=== PATIENT | female | born 2000 | race Caucasian/White ===

== ENCOUNTER 2024-05-20 14:23 | Emergency (ER) | payer MEDICAID, SELFPAY ==
--- NOTE | 2024-05-20 14:25 | ED_ITS ---
HPI - General Adult General Date Seen: 05/20/24 Chief complaint: Unspecified Complaint, Adult Stated complaint: possible toxic shock syndrome Time Seen by Provider: 05/20/24 14:24 History of Present Illness HPI narrative: 23-year-old female who normally gets care through the [facility] system and according to their records ([facility] care link) has a history of past medical history of elevated BMI, PCOS, anxiety, depression, and recurrent strep pharyngitis According to records through [facility] she was seen in the emergency department at [facility] on March for nausea, vomiting, and epigastric abdominal pain. I do not have complete records but workup included WBC of 9.6, hemoglobin 13.1, platelet count 426. Sodium 136, potassium 4.5, chloride 105, bicarb 20, BUN 10, creatinine 0.7, calcium 9, glucose 83. Urinalysis was normal. I do not have complete access to the ER notes. The patient presents to the ER today with her best friend, who drove her in, because the patient was feeling too unwell to drive her own car. Patient recalls that she was having sex with her boyfriend last weekend, on Monday when she suffered an injury to her vagina. She says this a laceration there. It happened inadvertently while they were having intercourse. It was bleeding a little bit and was painful after that but seemed to heal. She began have her period starting on Monday. It ended on Monday or Monday, 2 or 3 days ago. She began to feel unwell again yesterday on Monday. She started developing headache while she was driving her car she had a frontal headache associated with photophobia and light sensitivity from the son. Yesterday evening she also started to feel generally unwell with body aches, fatigue, low energy. She also had a sore throat last night and had an episode where she felt very short of breath. Her breathing got better after she took an albuterol inhaler. Today she is also having some vaginal discharge and some lower abdominal pain and low back pain. She also had 1 episode of watery diarrhea this morning. She is nauseous but not vomiting. She does not have a fever. No rash. She googled her symptoms and is concerned that she might have toxic shock syndrome. Related Data Home Medications ?Medication ?Instructions ?Recorded ?Confirmed albuterol sulfate 90 mcg/actuation 1 - 2 puff inhalation Q4H PRN 05/20/24 05/20/24 aerosol inhaler (Ventolin HFA) wheezing escitalopram oxalate 20 mg tablet 20 mg PO QAM 05/20/24 05/20/24 metformin 500 mg tablet,extended 2,000 mg PO QPM 05/20/24 05/20/24 release 24 hr Allergies Allergy/AdvReac Type Severity Reaction Status Date / Time No Known Drug Allergies Allergy Verified 05/20/24 14:29 PFSH PFSH Social History Smoking Status: Former smoker How often do you have a drink containing alcohol: never AUDIT-C Alcohol total score: 0 Non-prescribed substance use: former substance user and marijuana (any form) Exam Const: Vital Signs, click to edit/add: Vital Signs - 24 hr 05/20/24 14:30 05/20/24 16:12 Temperature 98.4 F Pulse Rate [Pulse Oximeter] 86 Respiratory Rate 18 Respiratory Rate [ Abdomen] 18 Blood Pressure [Ri ght Upper Arm] 108/75 Pulse Oximetry 97 Oxygen Delivery Me thod Room Air Course Vital Signs Vital signs: Initial Vital Signs Temperature 98.4 F 05/20/24 14:30 Temperature Source Temporal Artery Scan 05/20/24 14:30 Pulse Rate 86 05/20/24 14:30 Pulse Rhythm Regular 05/20/24 14:30 Respiratory Rate 18 05/20/24 14:30 Blood Pressure 108/75 05/20/24 14:30 Blood Pressure Mean 86 05/20/24 14:30 Blood Pressure Position Sitting 05/20/24 14:30 Pulse Oximetry 97 05/20/24 14:30 Oxygen Delivery Method Room Air 05/20/24 14:30 Vital Signs Temperature 98.4 F 05/20/24 14:30 Pulse Rate 86 05/20/24 14:30 Respiratory Rate 18 05/20/24 14:30 Blood Pressure 108/75 05/20/24 14:30 Pulse Oximetry 97 05/20/24 14:30 Oxygen Delivery Method Room Air 05/20/24 14:30 Temperature 98.4 F 05/20/24 14:30 Pulse Rate 86 05/20/24 14:30 Respiratory Rate 18 05/20/24 16:12 Blood Pressure 108/75 05/20/24 14:30 Pulse Oximetry 97 05/20/24 14:30 Oxygen Delivery Method Room Air 05/20/24 14:30 Medications Administered Medications: Discontinued Medications Generic Name Dose Route Start Last Admin Trade Name Santana PRN Reason Stop Dose Admin Sodium Chloride 1,000 mls @ 1,000 mls/hr 05/20/24 15:15 05/20/24 17:20 0.9 % Sodium Chloride 1000 Ml IV 05/20/24 16:14 Infused .Q1H SHARATH Infusion Ketorolac Tromethamine 15 mg 05/20/24 15:15 05/20/24 16:08 Ketorolac 15 Mg/Ml Inj IVP 05/20/24 15:16 15 mg ONCE ONE Administration Olanzapine 5 mg 05/20/24 18:01 05/20/24 18:18 Olanzapine 5 Mg/Ml Inj IVP 05/20/24 18:02 5 mg ONCE ONE Administration Ondansetron HCl 4 mg 05/20/24 15:15 05/20/24 16:10 Ondansetron 2 Mg/Ml Inj IVP 05/20/24 15:16 4 mg ONCE ONE Administration Medical Decision Making [facility] Narrative Medical decision making narrative: 23-year-old female presenting to the ER today with several concerns including vaginal discharge and vaginal pain after suffering a vaginal laceration 8 days ago. Along this she is having constitutional symptoms of more malaise, myalgias, headache, as well as lower abdominal pain. Differential is broad. In terms of her headache she that did start yesterday and was associated with mild sore sugars throat and some shortness of breath last night. COVID test is negative. Lung sounds are clear today. No evidence for any focal consolidation. No wheezing to suggest bronchospasm. She is not having any fever here in the ER. No neck stiffness. Normal mental status and no focal neurologic deficits. At this point low clinical suspicion for meningitis. No sudden onset to the headache to suggest subarachnoid hemorrhage requiring CT, CTA, or LP. Headache is improving after meds given here in the ER. Her primary concern is vaginal pain and discharge. On my exam she does have an apparently healing but probably infected laceration affecting the posterior fornix of her vagina. This apparently occurred 8 days ago when she was having intercourse with her boyfriend. With the purulent drainage I am suspicious it may be infected. It is very painful and prohibits my ability to perform a speculum exam to check for cervical discharge or cervicitis. Discussed the vaginal laceration with Obstetrics. She would recommend empiric treatment with a course of antibiotics to, Augmentin. Urinalysis was obtained and does show evidence for pyuria but also squamous epithelial cells indicating probable contamination. Patient does not think she will be able to provide a clean-catch urine sample and does not want to go through a straight cath to get an accurate specimen. Therefore will treat her empirically for possible UTI as well. Cephalexin. Laboratory workup is reassuring. White count normal. She is hemodynamically stable. Plan of care will be empiric treatment with antibiotics for her vaginal laceration. She will need follow-up either with her primary care, or with the [facility] for re-evaluation within about 1 week. At that time they could also obtain cervical specimens to check for STIs. The patient is here with her best friend her boyfriend. They have overall low suspicion for STIs. Therefore would hold off on empiric treatment for PID. She is not . Lab Data Labs: Lab Results 05/20/24 05/20/24 05/20/24 Range/Units 15:40 15:52 17:05 WBC 6.18 (4.50-11.00) K/uL RBC 4.68 (4.00-5.20) m/uL Hgb 13.1 (12.0-16.0) gm/dL Hct 39.8 (33.0-51.0) % MCV 85 (80-100) fL MCH 28 (26-34) pg MCHC 33 (32-36) gm/dL RDW Coeff of Mony 14.7 (11.5-15.5) % Plt Count 310 (140-440) K/uL Neut % (Auto) 68.6 (42.0-72.0) % Lymph % (Auto) 22.3 (20-44) % [place] % (Auto) 8.6 (0.0-11.0) % Eos % (Auto) 0.2 (0.0-7.0) % Baso % (Auto) 0.3 (0.0-3.0) % Neut # (Auto) 4.24 (1.7-7.0) K/uL Lymph # (Auto) 1.38 (0.90-2.90) K/uL [place] # (Auto) 0.50 (0.00-0.90) K/UL Eos # (Auto) 0.01 (0.00-0.50) K/uL Baso # (Auto) 0.02 (0.00-0.30) K/uL Abs Immat Gran (auto) 0.00 (0.00-0.30) K/uL Imm/Tot Granulo (auto) 0.0 % Sodium 135 (135-149) mmol/L Potassium 3.8 (3.6-5.1) mmol/L Chloride 103 (96-114) mmol/L Carbon Dioxide 23 (20-32) mmol/L Anion Gap 9 (7-15) mEq/L BUN 9 (5-24) mg/dL Creatinine 0.8 (0.5-1.5) mg/dL Estimated Creat Clear 95.25 Estimated GFR 107 ml/min Glucose 85 (60-115) mg/dL Calcium 9.3 (8.4-10.6) mg/dL Total Bilirubin 0.5 (0.1-1.5) mg/dL AST 31 (12-35) U/L ALT 35 (4-35) U/L Alkaline Phosphatase 76 (40-150) U/L Total Protein 7.9 (6.0-8.3) g/dL Albumin 4.6 (3.3-5.0) g/dL Urine Color Yellow (Yellow) Urine Appearance Clear (Clear) Urine pH 5.5 (5.0-8.5) Ur Specific [place] 1.020 (1.000-1.030) Urine Protein Negative (Negative) Urine Glucose (UA) Negative (Negative) Urine Ketones 1+ A (Negative) Urine Blood Trace-intact A (Negative) Urine Nitrite Negative (Negative) Urine Bilirubin Negative (Negative) Urine Urobilinogen 2.0 A (0.2-1.0) Ur Leukocyte Esterase Trace A (Negative) Urine RBC 2-5 A (0-2) Urine WBC 5-10 A (0-5) Ur Squamous Epith Cells Moderate A (None-Few) Urine Bacteria Moderate A (None) Fine Granular Casts Moderate A (None) Urine HCG, Qual Negative (Negative) SARS-CoV-2 (PCR) Negative SARS-CoV-2 (Negative) Influenza Type A (PCR) Negative PCR FLU A (Negative) Influenza Type B (PCR) Negative PCR FLU B (Negative) RSV (PCR) Negative PCR RSV (Negative) Discharge Plan Discharge Clinical Impression: Vaginal laceration, UTI (urinary tract infection), Headache Patient Disposition: Home, Self-Care Condition: Stable Instructions: Acute Headache (DC) Additional Instructions: As we discussed, we suspect that you do have an infection of your vagina from the laceration. We are going to put you on antibiotics to treat this infection. You also have signs of urinary tract infection on your urinalysis today. I am not sure if you truly have sent infection or not because the urine sample is showing signs of contamination from your vagina. However we will put you on antibiotics to treat you for possible bladder infection. It is very important for you to have a follow-up examination of your vaginal laceration within 5-7 days. You can follow-up with your regular doctor in the [facility] or you can follow-up with the [facility]. If you want to follow-up with the [facility] referral clerk Call [phone] tomorrow to schedule a follow-up visit with the [facility]. You should also have a pelvic exam with swabs to check for STDs at the time of your follow-up visit. As we discussed, please come back to the ER right away if you have any worsening symptoms such as worsening abdominal pain, fever or chills, worsening headache,c weakness, or any other problems. Prescriptions: No Action albuterol sulfate [Ventolin HFA] 90 mcg/actuation HFA aerosol inhaler 1 - 2 puff inhalation Q4H PRN (Reason: wheezing) metformin 500 mg tablet extended release 24 hr 2,000 mg PO QPM escitalopram oxalate 20 mg tablet 20 mg PO QAM Follow Up/Referrals: Channing Brush MD [Primary Care Provider] - Stand Alone Forms: [facility] Info Instructions
[2024-05-20 14:30] VITALS: BP 108/75; PULSE 86; RESP 18; TEMP 36.9; O2SAT 97; BMI 33.3
[2024-05-20 16:04] LABS: Basophils Absolute Auto 0.02 K/uL (0.00-0.30); Basophils Percent Auto 0.3 % (0.0-3.0); Eosinophils Absolute Auto 0.01 K/uL (0.00-0.50); Eosinophils Percent Auto 0.2 % (0.0-7.0); Hematocrit 39.8 % (33.0-51.0); Hemoglobin* 13.1 gm/dL (12.0-16.0); Lymphocytes Absolute Auto 1.38 K/uL (0.90-2.90); Lymphocytes Percent Auto 22.3 % (20-44); Mean Corpuscular HGB Conc 33 gm/dL (32-36); Mean Corpuscular Hemoglobin 28 pg (26-34); Mean Corpuscular Volume 85 fL (80-100); Monocytes Percent Auto 8.6 % (0.0-11.0); Neutrophils Absolute Auto 4.24 K/uL (1.7-7.0); Neutrophils Percent Auto 68.6 % (42.0-72.0); Platelet Count* 310 K/uL (140-440); RDW Coefficient of Variation % 14.7 % (11.5-15.5); Red Blood Count 4.68 m/uL (4.00-5.20); White Blood Count* 6.18 K/uL (4.50-11.00)
[2024-05-20] MEDS: 0.9 % SODIUM CHLORIDE 1000 ml 1,000 ML IV (16:05)
[2024-05-20] MEDS: KETOROLAC 15 MG/ML inj IVP (16:08)
[2024-05-20] MEDS: ONDANSETRON 2 MG/ML inj 4 MG IVP (16:10)
[2024-05-20 16:11] LABS: Slide Review Reflex No
[2024-05-20 16:12] VITALS: RESP 18
[2024-05-20 16:17] LABS: Albumin* 4.6 g/dL (3.3-5.0); Chloride* 103 mmol/L (96-114)
[2024-05-20 16:18] LABS: Potassium* 3.8 mmol/L (3.6-5.1); Sodium* 135 mmol/L (135-149)
[2024-05-20 16:20] LABS: Anion Gap 9 mEq/L (7-15); Aspartate Amino Transferase* 31 U/L (12-35); Bilirubin Total* 0.5 mg/dL (0.1-1.5); Carbon Dioxide* 23 mmol/L (20-32); Creatinine* 0.8 mg/dL (0.5-1.5); Est. Creatinine Clearance* 95.25; Estimated Glomerular Filt Rate 107 ml/min; Total Protein* 7.9 g/dL (6.0-8.3)
[2024-05-20 16:21] LABS: Alanine Aminotransferase* 35 U/L (4-35); Alkaline Phosphatase* 76 U/L (40-150); Blood Urea Nitrogen* 9 mg/dL (5-24); Calcium* 9.3 mg/dL (8.4-10.6); Glucose* 85 mg/dL (60-115)
[2024-05-20 16:27] LABS: PCR FLU A Negative PCR FLU A (Negative); PCR FLU B Negative PCR FLU B (Negative); PCR RSV Negative PCR RSV (Negative); SARS PCR* Negative SARS-CoV-2 (Negative)
[2024-05-20 17:17] LABS: Appearance Urine Clear (Clear); Bilirubin Urine Negative (Negative); Blood Urine Trace-intact (Negative); Color Urine Yellow (Yellow); Glucose Urine Negative (Negative); Ketones Urine 1+ (Negative); Leukocyte Esterase Urine Trace (Negative); Nitrite Urine Negative (Negative); Protein Urine Negative (Negative); pH Urine 5.5 (5.0-8.5)
[2024-05-20 17:19] LABS: Ur HCG Qualitative* Negative (Negative)
[2024-05-20 17:28] LABS: Bacteria Urine Moderate; Squamous Epithelial Cell Urine Moderate (None-Few)
[2024-05-20 17:29] LABS: Fine Granular Casts Urine Moderate
[2024-05-20] MEDS: OLANZapine 5 MG/ML inj IVP (18:18)
== END 2024-05-20 18:28 | disposition home or self-care (01) ==
PROVIDERS: Emergency Provider Emergency Medicine; PCP Family Medicine
DX: S31.41XA Laceration without foreign body of vagina and vulva, initial encounter (principal); N39.0 Urinary tract infection, site not specified; R51.9 Headache, unspecified
CPT/HCPCS: 36415; 80053; 81001; 81025; 81513; 85025; 87086; 87481; 87491; 87591; 87631; 87661; 96361; 96374; 96375; 99284; J1885; J2405; J7030

== ENCOUNTER 2024-05-22 06:13 | Outpatient (CLI) | payer MEDICAID, SELFPAY | END 2024-05-22 06:14 | disposition home or self-care (01) | LOC: AMB 05-23 02:53 | PROVIDERS: PCP Family Medicine; Visit Provider Family Medicine | DX: R10.9 Unspecified abdominal pain (principal) | CPT/HCPCS: A0425; A0427 ==

== ENCOUNTER 2024-05-22 06:40 | Emergency (ER) | payer MEDICAID, SELFPAY ==
[2024-05-22 06:51] VITALS: BP 116/66; PULSE 75; RESP 16; TEMP 37.1; O2SAT 97; BMI 32.6
[2024-05-22 07:04] LABS: Lactate* 1.6 mmol/L (0.5-1.9)
[2024-05-22 07:08] LABS: Basophils Absolute Auto 0.01 K/uL (0.00-0.30); Basophils Percent Auto 0.1 % (0.0-3.0); Eosinophils Absolute Auto 0.08 K/uL (0.00-0.50); Eosinophils Percent Auto 0.9 % (0.0-7.0); Hematocrit 40.1 % (33.0-51.0); Hemoglobin* 13.1 gm/dL (12.0-16.0); Immature Granulocytes Abs Auto 0.02 K/uL (0.00-0.30); Immature Granulocytes Pct Auto 0.2 %; Lymphocytes Percent Auto 17.8 % (20-44); Mean Corpuscular HGB Conc 33 gm/dL (32-36); Mean Corpuscular Hemoglobin 28 pg (26-34); Mean Corpuscular Volume 86 fL (80-100); Monocytes Percent Auto 5.6 % (0.0-11.0); Neutrophils Percent Auto 75.4 % (42.0-72.0); Platelet Count* 245 K/uL (140-440); RDW Coefficient of Variation % 14.7 % (11.5-15.5); Red Blood Count 4.69 m/uL (4.00-5.20); White Blood Count* 9.04 K/uL (4.50-11.00)
--- NOTE | 2024-05-22 07:11 | CRLHL7_ITS ---
For Patients: As a result of the Century Cures Act, medical imaging exams and procedure reports are released immediately into your electronic medical record. You may view this report before your referring provider. If you have questions, please contact your health care provider. INDICATION: Right lower quadrant abdominal pain. UTI. Vomiting. Weakness. COMPARISON: None TECHNIQUE: CT examination of the abdomen and pelvis was performed following the uneventful intravenous administration of 93 cc of Isovue 370. Thin section axial images were obtained from the lung bases through the pubic symphysis. Oral contrast was not administered. Please note that all CT scans at this facility use dose modulation, iterative reconstruction, and/or weight-based dosing when appropriate to reduce radiation dose to as low as reasonably achievable. FINDINGS: LUNG BASES: The lung bases as visualized appear normal.The heart size is normal at the lung bases. LIVER/BILIARY SYSTEM:The liver is normal in size and configuration. There is no focal mass and there is no intra- or extra hepatic biliary ductal dilatation.Probable steatosis. The gallbladder appears normal ADRENALS: Normal KIDNEYS, URETERS and BLADDER:The kidneys appear normal. No visible mass, calculus or hydronephrosis. The ureters and bladder as visualized appear normal. SPLEEN:Normal appearance. PANCREAS: Appears normal. RETROPERITONEUM and MESENTERY: No mass or adenopathy. A few prominent lymph nodes are noted, likely reactive GASTROINTESTINAL SYSTEM: There is no evidence of diverticulitis, colitis, mechanical obstruction, or appendicitis. The small bowel as visualized appears normal.The appendix appears normal. PELVIS: The uterus appears normal. There are symmetrically enlarged ovaries. The right ovary measures 4.8 x 3.4 centimeters and the left ovary measures 4.8 x 3.3 centimeters. Each ovary contains numerous follicles. This pattern can be seen in PCOS which should only be considered in the appropriate clinical setting. OSSEOUS STRUCTURES and ABDOMINAL WALL: There is an age-appropriate appearance of the osseous structures.No significant abdominal wall defect. OTHER: No free fluid or free air. IMPRESSION: 1. No specific visible cause for pain, UTI, vomiting and weakness. 2. Symmetrically enlarged ovaries with multiple follicles as described. This pattern can be seen in PCOS which should only be considered in the appropriate clinical setting. Please note that all CT scans at this facility use dose modulation, iterative reconstruction, and/or weight-based dosing when appropriate to reduce radiation dose to as low as reasonably achievable. Dictated by Lei Chisholm MD @ 05/22/2024 7:54:32 AM (Electronically Signed)
--- NOTE | 2024-05-22 07:13 | ED.GENADULT ---
HPI - General Adult General Chief complaint: Abdominal Pain Stated complaint: Abdominal pain Time Seen by Provider: 05/22/24 06:58 Source: patient Mode of arrival: ambulatory Limitations: no limitations History of Present Illness HPI narrative: 23-year-old female presents to the emergency department for evaluation of right-sided pelvic area abdominal pain. Patient was seen in the ED 1.5 days ago. At that time, she had a week old vaginal laceration that was caused by routine intercourse per her report. She was to tender to perform a full speculum exam and collect cultures. Case was discussed with OB and she was empirically started on Augmentin. Plan was for outpatient follow-up. Patient states that she started the antibiotics but still has a headache, is feeling generally unwell and also is now having chills since her ED visit. Abdominal pain seems to be worsening. She says that it seems like the vaginal laceration actually may be starting to heal up a little bit. She reports loss of vaginal discharge to the point where she has to wear a maxi pad. No bleeding. No leeroy dysuria. No bloody stools. She had vomiting this morning. No prior history of kidney stones, no prior history of pelvic surgeries. Low risk for STDs. Afebrile in triage, has not measured temperature at home. Has tried Tylenol for the headache and pain but reports no improvement. Has not tried NSAIDs. 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 No prior abdominal surgeries. No history of obstructions. No new injury or trauma since her ED visit a day and a half ago. Past medical history notable for anxiety disorder and PCOS. Home meds are metformin for PCOS, Lexapro 20 mg once daily. She also is a smoker but denies any illicit drug use. ROS is notable for the generalized, gynecological an abdominal symptoms as above. Otherwise denies times 12 systems Related Data Home Medications ?Medication ?Instructions ?Recorded ?Confirmed albuterol sulfate 90 mcg/actuation 1 - 2 puff inhalation Q4H PRN 05/20/24 05/20/24 aerosol inhaler (Ventolin HFA) wheezing escitalopram oxalate 20 mg tablet 20 mg PO QAM 05/20/24 05/20/24 metformin 500 mg tablet,extended 2,000 mg PO QPM 05/20/24 05/20/24 release 24 hr Previous Rx's ?Medication ?Instructions ?Recorded doxycycline hyclate 100 mg capsule 100 mg PO BID #28 caps 05/22/24 ibuprofen 600 mg tablet 600 mg PO Q6H PRN #60 tabs 05/22/24 metronidazole 500 mg tablet 500 mg PO Q12H 14 days #28 tabs 05/22/24 ondansetron 4 mg disintegrating 4 mg PO Q8H PRN nausea and 05/22/24 tablet vomiting #14 tabs Allergies Allergy/AdvReac Type Severity Reaction Status Date / Time No Known Drug Allergies Allergy Verified 05/20/24 14:29 PFSH PFS Social History Smoking Status: Former smoker How often do you have a drink containing alcohol: never AUDIT-C Alcohol total score: 0 Non-prescribed substance use: former substance user and marijuana (any form) Exam Const: Vital Signs, click to edit/add: Vital Signs - 24 hr 05/22/24 06:51 Temperature 98.7 F Pulse Rate [Pulse Oximeter] 75 Respiratory Rate 16 Blood Pressure [Ri ght Upper Arm] 116/66 Pulse Oximetry 97 Oxygen Delivery Me thod Room Air Documenting provider has reviewed patient's vital signs: yes Common normals: no apparent distress General appearance: cooperative Other: Good historian. HENMT: Common normals: normocephalic and oropharynx normal Head and scalp: normocephalic Face and sinus: normal facial exam Mouth: oral and palatal mucosa normal Eye: Common normals: conjunctivae normal General eye: normal appearance of both eyes Conjunctiva: conjunctiva(e) normal Neck & C-Spine: Common normals: no lymphadenopathy General: normal visual inspection Resp: Common normals: normal respiratory effort, no use of accessory muscles and clear to auscultation bilaterally Effort & inspection: able to speak in complete sentences Auscultation: clear to auscultation bilaterally Cardio: Common normals: regular rate, regular rhythm, S1 normal heart sound, S2 normal heart sound and no murmurs Rate: regular rate Rhythm: regular rhythm Heart sounds: S1 normal and S2 normal GI: Common normals: Normal to inspection, nondistended, normoactive bowel sounds present Other: Tender to suprapubic and right lower quadrant area but fairly deep in the pelvis. No obvious mass. No guarding or rebound tenderness. : Common normals: no CVA tenderness Bladder/kidney exam: no CVA tenderness Back & Pelvis: Common normals: no CVA tenderness and thoracic and lumbar spine normal to inspection Extremity: Common normals: normal to inspection, normal capillary refill and no pedal edema Neuro: Speech: speech normal Motor exam: no movement abnormalities noted Psych: Appearance: grossly normal Attitude: engaged Insight: insight good Judgement: judgment good Skin: Common normals: no rashes or lesions noted General skin exam: no rashes or lesions noted Course Course ED Course: 23-year-old female with worsening headache, vomiting and chills in the setting of suspected pelvic laceration and possible infection. I will give Zofran and Toradol and let this kick in but she does need a repeat gentle pelvic exam and at least vaginal cultures and STI screening. Will obtain urinalysis. Negative test a day and a half ago but will repeat. He needs a CT of the abdomen and pelvis. Other differential diagnosis including complicated UTI, kidney infection, obstruction, diverticulitis, unusual presentation of ovarian torsion. Most suspicious for pelvic inflammatory disease or abscess as well as complicated UTI, amongst others. Await clinical response to medications, pelvic exam and imaging and lab findings for next steps in management. Will likely hand over care to incoming day shift partner. Reevaluation(s) Time of Reevaluation #1: 08:00 Reevaluation #1: Update: I was able to perform a gentle pelvic exam. I do see some slight abrasions at the introitus but also can palpate at the posterior fornix of the vagina about a 2cm long deeper abrasion that does not seem to extend into the deeper tissues but is of course markedly tender to touch. There is bloody serous non malodorous drainage noted. She was of course tender to single finger bimanual exam of all pelvic organs. Time of Reevaluation #2: 08:37 Reevaluation #2: Discussed case with Ob provider on-call. We are both concerned for possible PID. CT and labs were overall reassuring. No signs of sepsis on labs. Discussed with patient as well. Will treat with Rocephin 1 g IV x1 and then doxycycline plus metronidazole. Will treat those b.i.d. for 14 days, 1st dose given here in the ED. remainder sent to pharmacy. She will discontinue the Augmentin. Also sending prescription for Zofran t.i.d. p.r.n. and ibuprofen q.i.d. p.r.n.. Use discussed. Is feeling somewhat better after fluids, Toradol and Zofran here in the ED. Ob will call for prompt follow-up in the next 1-2 days in the clinic. Patient instructed to return to the ED if she is not able to hold down her antibiotics or is having any signs of worsening in the interim. OB would recommend admission if this is the case. Written instructions provided, alarm symptoms reviewed. Patient verbalizes understanding and agreement. Vital Signs Vital signs: Initial Vital Signs Temperature 98.7 F 05/22/24 06:51 Temperature Source Temporal Artery Scan 05/22/24 06:51 Pulse Rate 75 05/22/24 06:51 Respiratory Rate 16 05/22/24 06:51 Blood Pressure 116/66 05/22/24 06:51 Blood Pressure Mean 82 05/22/24 06:51 Blood Pressure Position Supine 05/22/24 06:51 Pulse Oximetry 97 05/22/24 06:51 Oxygen Delivery Method Room Air 05/22/24 06:51 Vital Signs Temperature 98.7 F 05/22/24 06:51 Pulse Rate 75 05/22/24 06:51 Respiratory Rate 16 05/22/24 06:51 Blood Pressure 116/66 05/22/24 06:51 Pulse Oximetry 97 05/22/24 06:51 Oxygen Delivery Method Room Air 05/22/24 06:51 Temperature 98.7 F 05/22/24 06:51 Pulse Rate 75 05/22/24 06:51 Respiratory Rate 16 05/22/24 06:51 Blood Pressure 116/66 05/22/24 06:51 Pulse Oximetry 97 05/22/24 06:51 Oxygen Delivery Method Room Air 05/22/24 06:51 Medications Administered Medications: Generic Name Dose Route Start Last Admin Trade Name Freq PRN Reason Stop Dose Admin Ceftriaxone Sodium 1 gm/ 100 mls @ 200 mls/hr 05/22/24 08:17 05/22/24 08:34 Sodium Chloride IVPB 05/22/24 08:18 200 mls/hr ONCE ONE Administration Discontinued Medications Generic Name Dose Route Start Last Admin Trade Name Freq PRN Reason Stop Dose Admin Sodium Chloride 1,000 mls @ 1,000 mls/hr 05/22/24 07:13 05/22/24 08:28 0.9 % Sodium Chloride 1000 Ml IV 05/22/24 08:12 1,000 mls/hr .Q1H SHARATH Administration Ketorolac Tromethamine 15 mg 05/22/24 07:26 05/22/24 07:36 Ketorolac 15 Mg/Ml Inj IVP 05/22/24 07:27 15 mg ONCE ONE Administration Ondansetron HCl 4 mg 05/22/24 07:26 05/22/24 07:36 Ondansetron 2 Mg/Ml Inj IVP 05/22/24 07:27 4 mg ONCE ONE Administration Medical Decision Making Lab Data Lab results reviewed: Yes I reviewed the patient's lab results Lab results narrative: CBC is not flowing in but no significant leukocytosis seen on chart review. Electrolytes appropriate. CRP is mildly elevated, not unexpected. Overall quite reassuring. CT is also reviewed. Labs: Lab Results 05/22/24 Range/Units 06:52 WBC 9.04 (4.50-11.00) K/uL RBC 4.69 (4.00-5.20) m/uL Hgb 13.1 (12.0-16.0) gm/dL Hct 40.1 (33.0-51.0) % MCV 86 (80-100) fL MCH 28 (26-34) pg MCHC 33 (32-36) gm/dL RDW Coeff of Mony 14.7 (11.5-15.5) % Plt Count 245 (140-440) K/uL Neut % (Auto) 75.4 H (42.0-72.0) % Lymph % (Auto) 17.8 L (20-44) % Hamilton % (Auto) 5.6 (0.0-11.0) % Eos % (Auto) 0.9 (0.0-7.0) % Baso % (Auto) 0.1 (0.0-3.0) % Neut # (Auto) 6.80 (1.7-7.0) K/uL Lymph # (Auto) 1.60 (0.90-2.90) K/uL Hamilton # (Auto) 0.50 (0.00-0.90) K/UL Eos # (Auto) 0.08 (0.00-0.50) K/uL Baso # (Auto) 0.01 (0.00-0.30) K/uL Abs Immat Gran (auto) 0.02 (0.00-0.30) K/uL Imm/Tot Granulo (auto) 0.2 % Diff Slide Review Acceptable Review (Acceptable) Sodium 139 (135-149) mmol/L Potassium 3.8 (3.6-5.1) mmol/L Chloride 106 (96-114) mmol/L Carbon Dioxide 23 (20-32) mmol/L Anion Gap 10 (7-15) mEq/L BUN 12 (5-24) mg/dL Creatinine 0.7 (0.5-1.5) mg/dL Estimated Creat Clear 108.86 Estimated GFR 125 ml/min Glucose 116 H (60-115) mg/dL Lactate 1.6 (0.5-1.9) mmol/L Calcium 9.1 (8.4-10.6) mg/dL Total Bilirubin 0.6 (0.1-1.5) mg/dL AST 35 (12-35) U/L ALT 31 (4-35) U/L Alkaline Phosphatase 72 (40-150) U/L C-Reactive Protein 1.8 H (0.5-1.0) mg/dL Total Protein 7.5 (6.0-8.3) g/dL Albumin 4.3 (3.3-5.0) g/dL Lipase 194 (23-300) U/L Procalcitonin 0.08 (<0.50) ng/mL Imaging Data CT scan - abdomen: Attestation: I have reviewed the pertinent imaging results. My impression: No obvious abscess, obstruction, mass. Multiple follicles on the ovaries but known history of PCOS. Radiologist's impression: IMPRESSION: 1. No specific visible cause for pain, UTI, vomiting and weakness. 2. Symmetrically enlarged ovaries with multiple follicles as described. This pattern can be seen in PCOS which should only be considered in the appropriate clinical setting. Please note that all CT scans at this facility use dose modulation, iterative reconstruction, and/or weight-based dosing when appropriate to reduce radiation dose to as low as reasonably achievable. Dictated by Lei Chisholm MD @ 05/22/2024 7:54:32 AM Discharge Plan Discharge Clinical Impression: Acute pelvic inflammatory disease (PID) Patient Disposition: Home, Self-Care Condition: Stable Instructions: Pelvic Inflammatory Disease (DC) Additional Instructions: As we discussed, your CT scan and labs do look good. I a.m. still concerned that your infection is worsening. I would like for you to stop your previous antibiotic which is the amoxicillin/clauvonic acid. I have sent prescriptions for a combination of metronidazole and doxycycline to your pharmacy. You may take them both together 1 pill each 2 times daily for a total of 14 days. You will be given your 1st dose here in the emergency department. You were also given a single IV dose of antibiotics to help kick start things. He will be due for your next dose of antibiotics at about 8:00 p.m.. I am also sending an anti nausea medicine, Zofran. He may take this up to every 8 hours to help prevent nausea and vomiting. If even with this you cannot hold down her antibiotics, you need to come back to the emergency department. We would need to admit you to the hospital for further treatment. As for your bottom, this will feel much better if your keeping a soothing ointment on it. I recommend a and D ointment, you can find this in the baby aisle. Generic works just as well and I would recommend that you by the bigger size to tube. Apply a dime-sized amount to her index finger and wiped this on the vaginal opening and also try to insert along the back bottom part of the vagina higher up if you are able to tolerate this. For pain, I recommend Tylenol 1000 mg every 6 hours and or ibuprofen 600 mg every 6 hours. I have sent some prescription grade ibuprofen to the pharmacy for you. As we discussed, I recommend nothing in the vagina for at least the next 10 days. The OB Department should be calling you with a follow-up appointment later this week in the clinic. If they have not called by 2:00 p.m., please contact them at [phone] And if things are significantly worsening in the meantime before your follow-up appointment, please return to the emergency department. Activity Level: Activity as Tolerated Discharge Diet: Regular Prescriptions: New doxycycline hyclate 100 mg capsule 100 mg PO BID Qty: 28 0RF metronidazole 500 mg tablet 500 mg PO Q12H 14 Days Qty: 28 0RF ondansetron 4 mg tablet,disintegrating 4 mg PO Q8H PRN (Reason: nausea and vomiting) Qty: 14 0RF ibuprofen 600 mg tablet 600 mg PO Q6H PRNQty: 60 0RF No Action albuterol sulfate [Ventolin HFA] 90 mcg/actuation HFA aerosol inhaler 1 - 2 puff inhalation Q4H PRN (Reason: wheezing) metformin 500 mg tablet extended release 24 hr 2,000 mg PO QPM escitalopram oxalate 20 mg tablet 20 mg PO QAM Follow Up/Referrals: Jenifer Mendiola MD [Staff Physician] - 2 Days (1-2 days per MD, discussed over the phone with Ob provider) Channing Brush MD [Primary Care Provider] - Stand Alone Forms: [employer] Info Instructions
[2024-05-22 07:26] LABS: Albumin* 4.3 g/dL (3.3-5.0); Chloride* 106 mmol/L (96-114)
[2024-05-22 07:27] LABS: Potassium* 3.8 mmol/L (3.6-5.1); Sodium* 139 mmol/L (135-149)
[2024-05-22 07:29] LABS: Alanine Aminotransferase* 31 U/L (4-35); Alkaline Phosphatase* 72 U/L (40-150); Anion Gap 10 mEq/L (7-15); Aspartate Amino Transferase* 35 U/L (12-35); Bilirubin Total* 0.6 mg/dL (0.1-1.5); Blood Urea Nitrogen* 12 mg/dL (5-24); Carbon Dioxide* 23 mmol/L (20-32); Creatinine* 0.7 mg/dL (0.5-1.5); Est. Creatinine Clearance* 108.86; Estimated Glomerular Filt Rate 125 ml/min; Lipase* 194 U/L (23-300); Total Protein* 7.5 g/dL (6.0-8.3)
[2024-05-22 07:30] LABS: Calcium* 9.1 mg/dL (8.4-10.6); Glucose* 116 mg/dL (60-115)
[2024-05-22 07:32] LABS: C Reactive Protein* 1.8 mg/dL (0.5-1.0)
[2024-05-22] MEDS: KETOROLAC 15 MG/ML inj IVP (07:36)
[2024-05-22] MEDS: ONDANSETRON 2 MG/ML inj 4 MG IVP (07:36)
[2024-05-22 07:47] LABS: Procalcitonin* 0.08 ng/mL (<0.50)
[2024-05-22 08:02] LABS: Slide Review Reflex Yes
[2024-05-22 08:04] LABS: Slide Review Acceptable Review (Acceptable)
[2024-05-22] MEDS: 0.9 % SODIUM CHLORIDE 1000 ml 1,000 ML IV (08:28)
[2024-05-22] MEDS: cefTRIAXone 1 GM in 0.9 % SODIUM CHLORIDE Mini-bag 100 ML IVPB (08:34)
[2024-05-22] MEDS: DOXYCYCLINE HYCLATE 100 MG PO (08:58)
[2024-05-22] MEDS: metroNIDAZOLE 500 MG TABLET PO (08:58)
[2024-05-22 09:18] LABS: Bacterial Vaginosis* POSITIVE (Negative); Candida glab/krus NOT DETECTED (No Detected); Candida species NOT DETECTED (No Detected); Trichomonas vaginalis NOT DETECTED (No Detected)
[2024-05-22 09:25] LABS: Appearance Urine Clear (Clear); Bilirubin Urine Negative (Negative); Blood Urine Negative (Negative); Color Urine Yellow (Yellow); Glucose Urine Negative (Negative); Ketones Urine Negative (Negative); Leukocyte Esterase Urine Negative (Negative); Nitrite Urine Negative (Negative); Protein Urine Negative (Negative); Specific Gravity Urine <= 1.005 (1.000-1.030); pH Urine 5.5 (5.0-8.5)
[2024-05-22 09:27] LABS: Ur HCG Qualitative* Negative (Negative)
[2024-05-22 09:50] LABS: Chlamydia DNA Amplified* NOT DETECTED (No Detected); GC DNA Amplified* NOT DETECTED (No Detected)
== END 2024-05-22 09:44 | disposition home or self-care (01) ==
PROVIDERS: Emergency Provider Family Medicine; PCP Family Medicine
DX: N73.9 Female pelvic inflammatory disease, unspecified (principal)
CPT/HCPCS: 36415; 74177; 80053; 81003; 81025; 81513; 83605; 83690; 84145; 85025; 86140; 87210; 87481; 87491; 87591; 87661; 96365; 96375; 99284; 99285; A9270; J0696; J1885; J2405; J7030; Q9967

== ENCOUNTER 2024-08-04 09:10 | Emergency (ER) | payer MEDICAID, SELFPAY ==
[2024-08-04 09:19] VITALS: BP 118/76; PULSE 92; RESP 12; TEMP 36.7; O2SAT 100; BMI 32.3
--- NOTE | 2024-08-04 09:42 | ED.FEMALEGU ---
HPI - Female Genitourinary General Chief complaint: Urogenital Problems, Female Stated complaint: with abdominal pain Time Seen by Provider: 08/04/24 09:15 History of Present Illness HPI Narrative: This 24-year-old female comes in reporting painful sores on her perineum that began a couple days ago. She states that she is approximately 11 weeks . She reports that she has had 1 partner and does not know of any exposures to sexually transmitted diseases. She does not report any fevers. She states that it is painful to pass urine because the urine is near these sores but does not otherwise report any dysuria symptoms. Prior to this she has been in good health. She states that this is her 1st . Related Data Home Medications ?Medication ?Instructions ?Recorded ?Confirmed albuterol sulfate 90 mcg/actuation 1 - 2 puff inhalation Q4H PRN 05/20/24 08/04/24 aerosol inhaler (Ventolin HFA) wheezing escitalopram oxalate 20 mg tablet 20 mg PO QAM 05/20/24 08/04/24 bupropion HCl 150 mg 24 hr tablet, 150 mg PO QAM 08/04/24 08/04/24 extended release hydroxyzine HCl 25 mg tablet 25 - 50 mg PO Q6H PRN anxiety 08/04/24 08/04/24 vitamin with calcium 1 tab PO DAILY 08/04/24 08/04/24 no.72-iron 27 mg-folic acid 1 mg tablet (M-Yan Plus) Previous Rx's ?Medication ?Instructions ?Recorded ibuprofen 600 mg tablet 600 mg PO Q6H PRN #60 tabs 05/22/24 ondansetron 4 mg disintegrating 4 mg PO Q8H PRN nausea and 05/22/24 tablet vomiting #14 tabs clotrimazole 2 % vaginal cream 1 appful vaginal QHS 7 days #21 08/04/24 grams Allergies Allergy/AdvReac Type Severity Reaction Status Date / Time No Known Drug Allergies Allergy Verified 08/04/24 09:17 Review of Systems Status of ROS: Reports: 10 or more systems reviewed and unremarkable except as noted in History and below Narrative: Constitutional: No fevers, no weight gain or loss. Eyes: No discharge. No vision changes. HENT: No congestion, no sore throat, no ear pain. Cardiovascular: No chest pain, no palpitations. Respiratory: No shortness of breath, no wheezes, no cough. Gastrointestinal: No abdominal pain, no vomiting, no diarrhea. Genitourinary: Painful sores on her perineum. Musculoskeletal: Normal range of motion. Skin: No rashes, no pruritis. Neurological: No dizziness, weakness, sensory change, speech change. Endo/Heme/Allergies: No bruising or bleeding. No polydipsia. Pysch: no suicidality, no anxiety, no insomnia. All other systems reviewed and are negative. [facility] Social History Smoking Status: Former smoker How often do you have a drink containing alcohol: never AUDIT-C Alcohol total score: 0 Non-prescribed substance use: former substance user and marijuana (any form) Exam Narrative: Exam Narrative: Constitutional: Well-developed, well-nourished, no acute distress. HEENT: Normocephalic, atraumatic. Neck: Normal range of motion. Nontender. Supple. Heart: Regular. No murmurs. Normal rate. Intact distal pulses. Lungs: Clear to auscultation. No chest discomfort. No wheezes, rhonchi, or rales. Abdomen: Normal bowel sounds. Nontender. No rebound tenderness. Genitalia: Normal exam except for small amount of whitish discharge. Back: No midline tenderness. Normal range of motion. Extremities: Normal range of motion. No injury. Skin: Intact. No rash. Warm. No erythema or pallor. Neurologic: No altered sensation. No weakness. Alert and oriented. Psychiatric: No suicidality. No anxiety or depression. No insomnia. Nursing notes and vitals signs are reviewed. Const: Vital Signs, click to edit/add: Vital Signs - 24 hr 08/04/24 09:19 Temperature 98.0 F Pulse Rate [Pulse Oximeter] 92 Respiratory Rate 12 Blood Pressure [Ri ght Upper Arm] 118/76 Pulse Oximetry 100 Oxygen Delivery Me thod Room Air Course Vital Signs Vital signs: Initial Vital Signs Temperature 98.0 F 08/04/24 09:19 Temperature Source Temporal Artery Scan 08/04/24 09:19 Pulse Rate 92 08/04/24 09:19 Pulse Rhythm Regular 08/04/24 09:19 Respiratory Rate 12 08/04/24 09:19 Blood Pressure 118/76 08/04/24 09:19 Blood Pressure Mean 90 08/04/24 09:19 Blood Pressure Position Sitting 08/04/24 09:19 Pulse Oximetry 100 08/04/24 09:19 Oxygen Delivery Method Room Air 08/04/24 09:19 Vital Signs Temperature 98.0 F 08/04/24 09:19 Pulse Rate 92 08/04/24 09:19 Respiratory Rate 12 08/04/24 09:19 Blood Pressure 118/76 08/04/24 09:19 Pulse Oximetry 100 08/04/24 09:19 Oxygen Delivery Method Room Air 08/04/24 09:19 Temperature 98.0 F 08/04/24 09:19 Pulse Rate 92 08/04/24 09:19 Respiratory Rate 12 08/04/24 09:19 Blood Pressure 118/76 08/04/24 09:19 Pulse Oximetry 100 08/04/24 09:19 Oxygen Delivery Method Room Air 08/04/24 09:19 MDM - Female Genitourinary MDM Narrative Medical decision making narrative: This patient comes in with vaginal pain and whitish discharge as described above. A vaginitis swab is obtained and returns positive for candidiasis. The patient is 11 weeks so oral medication was avoided. I recommended topical medications and did provide a prescription for clotrimazole topical. I advised her to follow-up with OBGYN department. Lab Data Labs: Lab Results 08/04/24 Range/Units 10:00 Vaginal Bacterial Vaginosis Negative (Negative) Vaginal Tran species DETECTED A (No Detected) Vag C. glabrata/krusei NOT DETECTED (No Detected) Vag T. vaginalis NOT DETECTED (No Detected) Discharge Plan Discharge Clinical Impression: Vaginitis, Candidiasis of genitalia in female Additional Instructions: Take medication as prescribed. Follow up with primary physician or OBGYN clinic for ongoing management. Return if worsening. Prescriptions: New clotrimazole 2 % cream 1 appful vaginal QHS 7 Days Qty: 21 0RF No Action albuterol sulfate [Ventolin HFA] 90 mcg/actuation HFA aerosol inhaler 1 - 2 puff inhalation Q4H PRN (Reason: wheezing) escitalopram oxalate 20 mg tablet 20 mg PO QAM hydroxyzine HCl 25 mg tablet 25 - 50 mg PO Q6H PRN (Reason: anxiety) bupropion HCl 150 mg tablet extended release 24 hr 150 mg PO QAM M-Yan Plus 27 mg iron- 1 mg tablet 1 tab PO DAILY ondansetron 4 mg tablet,disintegrating 4 mg PO Q8H PRN (Reason: nausea and vomiting) Qty: 14 0RF ibuprofen 600 mg tablet 600 mg PO Q6H PRNQty: 60 0RF Follow Up/Referrals: Channing Brush MD [Primary Care Provider] -
[2024-08-04 11:12] LABS: Bacterial Vaginosis* Negative (Negative); Candida glab/krus NOT DETECTED (No Detected); Candida species DETECTED (No Detected); Trichomonas vaginalis NOT DETECTED (No Detected)
[2024-08-04 11:36] VITALS: BP 118/76; PULSE 92; RESP 12; TEMP 36.7
== END 2024-08-04 11:30 | disposition home or self-care (01) ==
LOC: ED 09:46
PROVIDERS: Emergency Provider Emergency Medicine Emergency Medical Services; PCP Family Medicine
DX: N76.0 Acute vaginitis (principal); B37.31 Acute candidiasis of vulva and vagina; Z3A.11 11 weeks gestation of pregnancy
CPT/HCPCS: 81513; 87070; 87186; 87481; 87661; 99284

== ENCOUNTER 2024-08-26 07:35 | Emergency (ER) | payer MEDICAID, SELFPAY ==
[2024-08-26 07:44] VITALS: BP 122/80; PULSE 80; RESP 16; TEMP 36.8; O2SAT 99
--- NOTE | 2024-08-26 08:06 | ED_ITS ---
HPI - Fall General Time Seen by Provider: 08:06 Date Seen: 08/26/24 Chief Complaint: Fall/Minor Trauma Stated Complaint: fall down concrete stairs/arm pain Time Seen by Provider: 08/26/24 08:05 Source: patient and RN notes reviewed Mode of arrival: ambulatory Limitations: no limitations History of Present Illness HPI Narrative: This 24yo female is presenting to the ED with complaint of left elbow pain from an injury with a fall down concrete stairs. Did not hit head, braced with left arm/elbow, has bruise on arm. Notes area of impact feels numb on forearm, pain shoots from elbow into forearm with movement. Patient is about 14 weeks , does her OB at [facility]. She fell yesterday about 22 hours ago. She reports she did go down about 14 steps. She notes no loss of consciousness, no current head or neck symptoms. She has no abdominal pain, has had no abdominal cramping, no abdominal bleeding, no fluids. Her complaint is her elbow, proximal forearm. She states she did not break it but it hurts. MD complaint: fall Related Data Home Medications ?Medication ?Instructions ?Recorded ?Confirmed albuterol sulfate 90 mcg/actuation 1 - 2 puff inhalation Q4H PRN 05/20/24 08/04/24 aerosol inhaler (Ventolin HFA) wheezing escitalopram oxalate 20 mg tablet 20 mg PO QAM 05/20/24 08/04/24 bupropion HCl 150 mg 24 hr tablet, 150 mg PO QAM 08/04/24 08/04/24 extended release hydroxyzine HCl 25 mg tablet 25 - 50 mg PO Q6H PRN anxiety 08/04/24 08/04/24 vitamin with calcium 1 tab PO DAILY 08/04/24 08/04/24 no.72-iron 27 mg-folic acid 1 mg tablet (M- Plus) Previous Rx's ?Medication ?Instructions ?Recorded ibuprofen 600 mg tablet 600 mg PO Q6H PRN #60 tabs 05/22/24 ondansetron 4 mg disintegrating 4 mg PO Q8H PRN nausea and 05/22/24 tablet vomiting #14 tabs clotrimazole 2 % vaginal cream 1 appful vaginal QHS 7 days #21 08/04/24 grams Allergies Allergy/AdvReac Type Severity Reaction Status Date / Time No Known Drug Allergies Allergy Verified 08/26/24 08:32 Review of Systems Status of ROS: Reports: 6 or more systems reviewed and unremarkable except as noted in History and below [facility] Social History Smoking Status: Former smoker How often do you have a drink containing alcohol: never AUDIT-C Alcohol total score: 0 Non-prescribed substance use: former substance user and marijuana (any form) Exam Const: Vital Signs, click to edit/add: Vital Signs - 24 hr 08/26/24 07:44 Temperature 98.2 F Pulse Rate [Pulse Oximeter] 80 Respiratory Rate 16 Blood Pressure [Ri ght Upper Arm] 122/80 Pulse Oximetry 99 Oxygen Delivery Me thod Room Air Moreno a 24-year-old female that is alert, interactive, no apparent distress. She has no pain on palpation of her clavicles, AC joints, over glenohumeral joints. Proximal humerus is fine. She does not seem to have tenderness over the lateral or medial malleolus of the left elbow. She has pain when I attempt to take her elbow which is held at 90? along her side and do extension. She does not seem to have as much discomfort with supination or pronation. You can see bruising about 4 cm distally from the olecranon process. There is no open skin wound. She is tender over the bruised area. There is no pain with range of motion of her wrist or palpation of her wrist, hand fingers without any traumatic change. Good distal pulses, skin is warm and dry. Did do bedside ultrasound, fetus is active, good cardiac activity. Documenting provider has reviewed patient's vital signs: yes Course Course ED Course: Patient will have imaging done with x-rays of her left elbow and forearm to rule out fracture. Reevaluation(s) Time of Reevaluation #1: 09:27 Reevaluation #1: Reviewed negative x-rays with patient, no fracture. Radiology did expand out the elbow to get the proximal radius and ulna which corresponded to the area of the bruising. We discussed relative rest, no indication for any immobilization. Recommend ice, p.r.n. Tylenol. Vital Signs Vital signs: Initial Vital Signs Temperature 98.2 F 08/26/24 07:44 Temperature Source Temporal Artery Scan 08/26/24 07:44 Pulse Rate 80 08/26/24 07:44 Respiratory Rate 16 08/26/24 07:44 Blood Pressure 122/80 08/26/24 07:44 Blood Pressure Mean 94 08/26/24 07:44 Blood Pressure Position Supine 08/26/24 07:44 Pulse Oximetry 99 08/26/24 07:44 Oxygen Delivery Method Room Air 08/26/24 07:44 Vital Signs Temperature 98.2 F 08/26/24 07:44 Pulse Rate 80 08/26/24 07:44 Respiratory Rate 16 08/26/24 07:44 Blood Pressure 122/80 08/26/24 07:44 Pulse Oximetry 99 08/26/24 07:44 Oxygen Delivery Method Room Air 08/26/24 07:44 Temperature 98.2 F 08/26/24 07:44 Pulse Rate 80 08/26/24 07:44 Respiratory Rate 16 08/26/24 07:44 Blood Pressure 122/80 08/26/24 07:44 Pulse Oximetry 99 08/26/24 07:44 Oxygen Delivery Method Room Air 08/26/24 07:44 MDM - Fall Imaging Data XR left elbow: Attestation: I have reviewed the pertinent imaging results. My impression: I do not appreciate any fracture on my visualization of the images. Radiologist's impression: Patient: [facility] Facility:?[facility] Patient ID:?[id number] Site Patient ID:?[id number]. Site :?[id number] Study:?XRay-Extremity Left Elbow 3v-08/26/2024 8:44:25 AM Ordering Physician:Tom Kimble Final Report: Indication: Injury Technique: A total of three views of the left elbow were acquired. Comparison: None Findings: Bones: Alignment is normal. No fractures or bone lesions. Joint spaces: Unremarkable. Soft tissues: Soft tissue swelling. No gas within soft tissues. No foreign body. Impression: No acute fracture, dislocation or destructive process.Soft tissue swelling. No gas within soft tissues. No radiopaque foreign body. Dictated by Lei Chisholm MD @ 08/26/2024 9:07:56 AM (Electronic Signature) Discharge Plan Discharge Clinical Impression: Contusion of elbow and forearm Instructions: Contusion in Adults (ED) Additional Instructions: Recommend using ice to the bruised area on the back of the elbow/forearm, can do 20 minutes of ice followed by 10 minute rest. Ice as much as you can the next couple of days, this will help decrease the pain and swelling. Could use some supplemental Tylenol per bottle directions if needed. If you have ongoing concerns, symptoms are not improving in the next 1-2 weeks, follow up in clinic for re-evaluation. Activity Level: Activity as Tolerated Prescriptions: No Action albuterol sulfate [Ventolin HFA] 90 mcg/actuation HFA aerosol inhaler 1 - 2 puff inhalation Q4H PRN (Reason: wheezing) escitalopram oxalate 20 mg tablet 20 mg PO QAM hydroxyzine HCl 25 mg tablet 25 - 50 mg PO Q6H PRN (Reason: anxiety) bupropion HCl 150 mg tablet extended release 24 hr 150 mg PO QAM M- Plus 27 mg iron- 1 mg tablet 1 tab PO DAILY clotrimazole 2 % cream 1 appful vaginal QHS 7 Days Qty: 21 0RF ondansetron 4 mg tablet,disintegrating 4 mg PO Q8H PRN (Reason: nausea and vomiting) Qty: 14 0RF ibuprofen 600 mg tablet 600 mg PO Q6H PRNQty: 60 0RF Follow Up/Referrals: Channing Brush MD [Primary Care Provider] - Stand Alone Forms: [employer] Info Instructions
--- NOTE | 2024-08-26 08:14 | CRLHL7_ITS ---
For Patients: As a result of the Cures Act, medical imaging exams and procedure reports are released immediately into your electronic medical record. You may view this report before your referring provider. If you have questions, please contact your health care provider. Indication: Injury Technique: A total of three views of the left elbow were acquired. Comparison: None Findings: Bones: Alignment is normal. No fractures or bone lesions. Joint spaces: Unremarkable. Soft tissues: Soft tissue swelling. No gas within soft tissues. No foreign body. Impression: No acute fracture, dislocation or destructive process.Soft tissue swelling. No gas within soft tissues. No radiopaque foreign body. Dictated by Lei Chisholm MD @ 08/26/2024 9:07:56 AM (Electronically Signed)
== END 2024-08-26 09:36 | disposition home or self-care (01) ==
PROVIDERS: Emergency Provider Family Medicine; PCP Family Medicine
DX: S50.02XA Contusion of left elbow, initial encounter (principal); W10.9XXA Fall (on) (from) unspecified stairs and steps, initial encounter
CPT/HCPCS: 73080; 99283

== ENCOUNTER 2024-09-13 12:55 | Emergency (ER) | payer MEDICAID, SELFPAY ==
[2024-09-13 13:06] VITALS: BP 116/77; PULSE 79; RESP 18; TEMP 36.6; O2SAT 100; BMI 32.8
--- OUTSIDE RECORDS SUMMARY | 2024-09-13 15:33 | XMS_ITS | Clinical Summary ---
Author Organization [facility] Address [place], [place] [address] Care Team Providers Care Clinical Education Coordinator Name Role Phone Channing Brush MD Primary Care Provider [phone] Allergies No known active allergies Medications Medication Sig Dispensed Refills Start Date End Date Status albuterol HFA (PRO-AIR; VENTOLIN; PROVENTIL) 90 mcg/actuation inhalerIndications:B ronchitis Inhale 1-2 Puffs by mouth every 4 hours if needed for Shortness Of Breath or Wheezing. 18 g 11 02/20/2024 Active escitalopram oxalate (LEXAPRO) 20 mg tabletIndications:An xiety,Major depressive disorder, recurrent, moderate (HC) Take 1 Tablet (20 mg) by mouth once daily in the morning. 90 Tablet 3 04/19/2024 Active vit 28/iron fum/folic (multivitamin folic acid 1 mg)Indications:Posit lupe test Take 1 Tablet by mouth once daily. 90 Tablet 3 07/02/2024 Active hydrOXYzine HCL (ATARAX) 25 mg tabletIndications:An xiety Take 1-2 Tablets (25-50 mg) by mouth every 6 hours if needed for Anxiety (bedtime). 25 Tablet 07/23/2024 Active buPROPion (WELLBUTRIN XL) 150 mg Extended-Release tabletIndications:An xiety Take 1 Tablet (150 mg) by mouth once daily in the morning. 90 Tablet 3 07/29/2024 Active pyridoxine, vitamin B6, (VITAMIN B6) 25 mg tabletIndications:Na usea and vomiting in Take 1 Tablet (25 mg) by mouth once daily. 60 Tablet 2 08/20/2024 Active famotidine (PEPCID) 10 mg tabletIndications:Na usea and vomiting in Take 1 Tablet (10 mg) by mouth two times daily. 60 Tablet 1 08/20/2024 Active Active Problems Problem Noted Date Diagnosed Date 08/07/2024 Overview (08/07/2024): Primary OB patient of Dr. Burks Preferred name: Lisa Language/cultural preferences: Burundian OB HISTORY / PERTINENT MEDICAL HISTORY: Estimated Date of Delivery: 02/19/25 Dating by LMP Patient's last menstrual period was 05/15/2024 (exact date). OB History Para Term AB Living 1 0 0 0 0 0 SAB IAB Ectopic Multiple Live Births 0 0 0 0 0 # Outcome Date GA Lbr Rhett/2nd Weight Sex Type Anes PTL Lv 1 Current Prior hx 1st Issues this : Social History : FOB/Spouse: Bin Children: None Work/school: None Substance use: marijuana and tobacco use- quit 07/02/24 COURSE: NIPT:{NIPT1:87026} Anatomy US at wd GA: Placenta {NORMAL:92351}, {placenta1:92799} Sex {ANW MB Gender:} Last estimated weight: Additional Ultrasounds: Vaccination: Flu 2022 Tdap (27-36w) 03/25/24 BMI: Body mass index is 31.74 kg/m . Pre-eclampsia risk on aspirin? NO LABS: GBS: {gbs:16486} 28wk labs: {28wOBlab:91559} OB labs: Needs GC/Chlam ABORH Date Value Ref Range Status 07/10/2024 O Rh Positive Final ANTIBODY SCREEN Date Value Ref Range Status 07/10/2024 Negative Negative Final T. PALLIDUM AB Date Value Ref Range Status 07/10/2024 NEGATIVE NEGATIVE Final RUBELLA AB (IGG), IMMUNE STATUS Date Value Ref Range Status 07/10/2024 3.32 Index Final Comment: Index Interpretation ----- <0.90 Not consistent with immunity 0.90-0.99 Equivocal > or = 1.00 Consistent with immunity HEPATITIS B SURFACE ANTIGEN Date Value Ref Range Status 07/10/2024 NON-REACTIVE NON-REACTIVE Final HEPATITIS C ANTIBODY Date Value Ref Range Status 07/10/2024 NON-REACTIVE NON-REACTIVE Final HIV AG/AB, 4TH GEN Date Value Ref Range Status 07/10/2024 NON-REACTIVE NON-REACTIVE Final VARICELLA ZOSTER VIRUS ANTIBODY (IGG) Date Value Ref Range Status 07/10/2024 6.51 S/CO Final Comment: Signal to Cut-off S/CO Interpretation --------- <1.00 Negative - Antibody not detected > or = 1.00 Positive - Antibody detected HEMOGLOBIN Date Value Ref Range Status 07/10/2024 12.5 11.7 - 15.5 g/dL Final PLATELET COUNT Date Value Ref Range Status 07/10/2024 413 (H) 140 - 400 Thousand/uL Final PLAN: Waterbirth: plan: Support people at delivery: Circumcision: Feeding plan: Contraception: Recurrent streptococcal pharyngitis 01/16/2024 Class 2 severe obesity with body mass index (BMI) of 35 to 39.9 with serious comorbidity 01/16/2024 PCOS (polycystic ovarian syndrome) 01/16/2024 Pap smear for cervical cancer screening 09/08/20 23 Overview (09/20/2023): 09/2023 NIL Plan: Pap/HPV due in 3 years Anxiety 03/08/2022 Current mild episode of cathleen r depressive disorder without prior episode 01/16/2018 Estimated Date of Delivery Comme nts Yes 02/19/2025 Based on last me nstrual period of 05/15/2024 (Exact Date) Resolved Problems Problem Noted Date Diagnosed Date Resolved Date Attention deficit disorder w ithout mention of hyperactivity 08/15/2011 01/19/2022 Overview (01/24/2014): Concerta 36mg, 11/2011. Pediatric Controlled Substance Agreement signed 09/19/11 Mom prefers to call for refills. Moved & started new school, [employer] . Doing very well. 12/31/12 Changed to lower dose, concerta 18mg. More stable environment--new home, new school, doing well. Biting nails. 07/19/13 Middle school. Transition has been difficult. Not taking medication consistently--mom leaves early for work. No IEP or 504 services yet. Visual/kinesthetic learner. 09/2013 Increased dose to 27mg (36 mg--had noticed tics in past). 11/2013 Mom stopped medication. No behavioral changes noted. Still struggling in school. Testing done through school system. Plans for IEP. 01/24/14 Well check--still off medications. IEP plan wrapping up. Will try without medications with new school accommodations. If still struggling, will restart medications. 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 /Dizziness, double vision - 5 days ago. ) 08/19/2024 Travel 08/07/2024 Telephone [facility] [address] [place] [address] Michell Burks MD Appointment 07/29/2024 1:45 PM CDT Office Visit [facility] [address] [place] [address] Channing Brush MD Sinus Problem (Sinus congestion ); Cough (Cough and loss of voice, started weekend of July 20, 2024. ) 07/29/2024 Travel 07/23/2024 10:15 AM CDT OB Encounter [facility] [address] [place] [address] Michell Burks MD Care (9 weeks 6 days ) 07/23/2024 Travel 07/11/2024 7:30 AM CDT Ancillary Procedure [facility] [address] [facility] [address] 07/10/2024 10:30 AM CDT OB Encounter [facility] [place] [address] Education (RN OB intake) 07/10/2024 Travel 07/02/2024 12:55 PM CDT Office Visit [facility] [address] [place] [address] Lindsey Valdez, DO Confirmation (Positive test yesterday, first day of last period 05/15/24) 07/02/2024 Travel from Last 3 Months Immunizations Name Administration Dates Next Due COVID-19 vaccine (Johnny-J&J) SONDRA MARIE 1 DTaP 01/31/2006, 4,01/25/2002,11/12,2001 HIB-HepB (Comvax) 06/18/2002,2001,09/07/20 01 Hepatitis A (Peds) 04/28/2014,08/01/2011 Human Papilloma Virus Vaccine 09/01/2014, 014,01/24/2014 Inactivated Polio Vaccine 01/31/2006,07/2002,2001,09/07 Influenza, IIV4 09/30/2023,06/05/2019,12/22/2015 MENINGOCOCCAL VACCINE 2 VIAL [id number] (MENVEO) 06/05/2019,01/24/2014 MMR 01/31/2006,02/10/2004 Pneumococcal conj 7-Valent (Prevnar 7) 2,2001,2001 Tdap 03/25/2024,01/24/2014 Varicella Vaccine 08/01/2011,02/10/2004 Family History Medical History Relation Name Comments No Known Problems Father Cancer-colon Maternal Grandfather Endometrial cancer Maternal Grandmother Lung cancer Maternal Grandmother Depression Mother Endometrial cancer Mother Relation Name Status Comments Father Maternal Grandfather Maternal Grandmother Alive Mother Alive Social History Tobacco Use Types Packs/Day Years Used Date Smoking Tobacco: Former Cigarettes 0.3 0.1 0 05/2024 - 06/2024 Smokeless Tobacco: Never Tobacco Cessation:Counseling Given: Yes Comments:non smoking home Alcohol Use Standard Drinks/Week Comments Not Currently 0 (1 standard drink = 0.6 oz pur e alcohol) rare PHQ-2 Answer Date Recorded PHQ-2 TOTAL SCORE 5 03/25/2024 Social Connections Answer Date Recorded Do you often feel lonely or isolated from those around you? 0 12/05/2023 Financial Resource Strain Answer Date R ecorded Difficulty of Paying Living Expenses 3 12/05/2023 Difficulty of Paying Living Expenses Not on file 12/05/2023 Food Insecurity Answer Date Recorded Do you worry your food will run out before you are able to buy more? 1 12/05/2023 Transportation Needs Answer Date Record ed Does lack of transportation keep you from medica l appointments? 1 12/05/2023 Does lack of transportation keep you from work, meetings or getting things that you need? 1 12/05/2023 Housing Stability Answer Date Recorded What is your housing situation today? 1 12/05/2023 Estimated Date of Delivery Comme nts Yes 02/19/2025 Based on last me nstrual period of 05/15/2024 (Exact Date) Sex and Gender Information Value Date Recorded Sex Assigned at Not on file Gender Identity Not on file Sexual Orientation Not on file Obstetrics History Para Term AB IAB SAB Ectopic Multiple Livin g Live Births 1 0 0 0 0 0 0 0 0 0 0 Date Outcome GA Total Labor Labor/2nd/3rd Weight Sex Type Anes PTL Gabrilela A1 A5 Name Clin Current Summary Episode Dates Number of Fetuses Estimated Date of Delivery 07/10/2024 - Present (09/13/2024) 02/19/2025 (set by Gabriela Souza, RN on 07/10/2024 based on Last Menstrual Period on 05/15/2024 (Exact Date)) Dating Summary Based On MERCEDES [place] Diff Last Menstrual Period on 05/15/2024 (Exact Date) 02/19/2025 Working Vitals Pregravid Weight Height TWG (As of 09/13/2024) Pregrav id BMI 85.3 kg (188 lb) 1.644 m (5' 4.72) -0.45 kg (-1 lb) 3 1.55 Notes Progress Notes - OB Encounte r - 08/20/2024 - GA:13w6d 08/20/2024 - d - Michell Burks MD S: Patient here today for routine visit. Taking PNV's. Unable to eat. Very nauseated. She has thrown up a few times at work. She has been drinking a lot of water. Lightheaded and dizzy. Has not tried vitamin B6 and franky. She states she has an antinausea medication at home. Had an episode of chest pain and double vision, some lightheadedness/dizziness. It has happened in the past. Had chest tightness. She is noticing acid reflux and burning sensation. She as antacid tablets. Not doing this everyday. She had eaten day of chest tightness. She was working and standing. No heart palpitations. O: See flowsheet. A/P: 24 y.o. at 13w6d 1. Encounter for supervision of normal first in second trimester 2. Nausea and vomiting in - Nausea/vomiting with associated weight loss (1lb) and chest pain most consistent with acid reflux. Recommend starting medications to assist with nausea and reflux. Start daily pepcid 10mg twice daily, vitamin B6 and franky products as first line, unisom and benadryl as second line, and zofran as third line. If she has more dizziness/lightheadedness or chest pain, I would recommend IVF and possible cardiac evaluation. She is vitally stable at this time. - Patient considering panorama, partner declines. - Reviewed labor precautions. - Return in 4wks for OB FU. Michell Burks MD .................... 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 with Estimated Date of Delivery: 02/19/25, here today for a first visit. She is doing well. She is having nausea. Eating saltine crackers. She is not taking medication for nausea at this time. She is taking , escitalopram and albuterol as needed. She stopped the metformin. . Anxiety and depression. Cannabis use prior to . Cannabis was used for severe stress. Tobacco use prior to 07/02/24. She finds that is going ok. She has some cravings. SOCIAL HISTORY Occupation: none /Father of baby: Bin, excited as well. MENSTRUAL HISTORY Patient's last menstrual period was 05/15/2024 (exact date).: Cycle Regularity: regular, every 35+ days MERCEDES by LMP Calculator: 07/22/2024 dates consistent with 1st trimester US Date Reliability: definite On BCP's at conception: no OBSTETRICS HISTORY Previous Pregnancies: none MEDICAL HISTORY Medical, surgical, family, and social history reviewed today and updated if necessary. Past Medical History: . Date ADD (attention deficit disorder) without hyperactivity Concerta for short period Depression PID (pelvic inflammatory disease) 05/2024 Polycystic ovary syndrome STD (sexually transmitted disease) 2019 chlamydia Suicidal intent 02/15/2018 Admitted for [facility]; overnight only, then d/c'd AMA, per parent (mom) wishes Past Surgical History: . Laterality Date VT TONSILLECTOMY & ADENOIDECTOMY AGE 13/> Bilateral 01/18/2024 Peter Patient has no known allergies. Family History Problem Relation Age of Onset Endometrial cancer Mother Depression Mother No Known Problems Father Lung cancer Maternal Grandmother Endometrial cancer Maternal Grandmother Cancer-colon Maternal Grandfather Current Outpatient Medications: albuterol HFA (PRO-AIR; VENTOLIN; PROVENTIL) 90 mcg/actuation inhaler, Inhale 1- 2 Puffs by mouth every 4 hours if needed for Shortness Of Breath or Wheezing., Disp: 18 g, Rfl: 11 escitalopram oxalate (LEXAPRO) 20 mg tablet, Take 1 Tablet (20 mg) by mouth once daily in the morning., Disp: 90 Tablet, Rfl: 3 ondansetron (ZOFRAN ODT) 4 mg disintegrating tablet, Place 1 Tablet (4 mg) on the tongue every 8 hours if needed for Nausea/Vomiting., Disp: 30 Tablet, Rfl: 0 ondansetron (ZOFRAN) 8 mg tablet, Take 1 Tablet (8 mg) by mouth every 8 hours if needed for Nausea/Vomiting., Disp: 4 Tablet, Rfl: 0 vit 28/iron fum/folic (multivitamin folic acid 1 mg), Take 1 Tablet by mouth once daily., Disp: 90 Tablet, Rfl: 3 Medications have been reviewed by me and are current to the best of my knowledge and ability. RISK FACTORS Alcohol/day: 0 Meds/Drugs/ETOH Since LMP: Yes - cannabis and tobacco use, quit 07/02 INFECTION HISTORY Current Drug Use: none HIV Risk Evaluation: low risk Hepatitis B Risk Evaluation: low risk History of STD: PID PHYSICAL EXAM BP 114/73 (Cuff Site: Right Arm, Position: Sitting, Cuff Size: Adult Regular) Pulse 96 Wt 86.7 kg (191 lb 2 oz) LMP 05/15/2024 (Exact Date) SpO2 100% BMI 32.08 kg/m General Appearance: Alert, well-developed, well-nourished, with appropriate grooming and dress. No acute distress HEENT Exam: Grossly normal. Neck / Thyroid Exam: Supple, no masses, nodes or enlargement. Chest/Respiratory Exam: Normal chest wall and respirations. Clear to auscultation. Cardiovascular Exam: Regular rate and rhythm. Normal S1, S2. No murmur, click, gallop, or rubs. Gastrointestinal Exam: Soft, non-tender, no masses or organomegaly. Lymphatic Exam: Non-palpable nodes in neck, Musculoskeletal Exam: Back is straight and non-tender, full ROM of upper and lower extremities. Skin: no rash or abnormalities Neurologic Exam: Normal gait and speech, no tremor. DTR's 2+ and symmetric Psychiatric Exam: Alert and oriented, appropriate affect. ASSESSMENT/PLAN: ICD-10-CM 1. Encounter for supervision of normal first in first trimester Z34.01 2. Anxiety F41.9 hydrOXYzine HCL (ATARAX) 25 mg tablet 3. Current mild episode of major depressive disorder without prior episode (HC) F32.0 4. PCOS (polycystic ovarian syndrome) E28.2 1. First OB: Satisfactory exam. Demonstrates appropriate and health seeking behaviors toward her . Verbalizes good understanding of care schedule and the importance of coming to each visit as scheduled. Has supportive family relationship. - Reviewed lab results. 2. Anxiety/depression. Continue escitalopram. Symptoms worsened since stopping cannabis, recommend starting hydroxyzine 25-50mg q6h or bedtime as needed. 3. Nausea/vomiting. Recommend using B6 or franky, if severe ok to use zofran intermittently. 4. Tobacco and cannabis use in early (quit 07/02/2024). 4. RTC 4 weeks. She was encouraged to call the office with any questions or concerns. Michell Burks MD .................... 07/23/2024 10:15 AM Progress Notes - OB Encounte r - 07/10/2024 - GA:8w0d 07/10/2024 - 8w0d - Gabriela Souza RN SUBJECTIVE: Lisa Willis is a 24 y.o. female, , who presents for confirmation and ob education. Patient presents to the clinic with partner. Had positive test at home. This was Planned, Desired. Patient was not on contraception. Date Reliability: definite MERCEDES based on LMP: Estimated Date of Delivery: 02/19/25 Current symptoms include: Nausea:Yes Vomiting:Yes - was daily, not vomiting anymore Breast tenderness:Yes Vaginal bleeding:Yes - brown spotting when wiping periodically 07/03-07/06 Vaginal discharge:No Pelvic cramping:Yes mild Fatigue:Yes Previous Delivery Type: NA Occupation of patient: none Name of Partner or Father of baby: Bin. MENSTRUAL HISTORY: Patient's last menstrual period was 05/15/2024 (exact date).: Cycle Regularity: regular, every 35+ days Past Medical History: . Date ADD (attention deficit disorder) without hyperactivity Concerta for short period Depression PID (pelvic inflammatory disease) 05/2024 Polycystic ovary syndrome STD (sexually transmitted disease) 2019 chlamydia Suicidal intent 02/15/2018 Admitted for [facility]; overnight only, then d/c'd AMA, per parent (mom) wishes OB History Para Term AB Living 1 0 0 0 0 0 SAB IAB Ectopic Multiple Live Births 0 0 0 0 0 # Outcome Date GA Lbr Rhett/2nd Weight Sex Type Anes PTL Lv 1 Current 5P'S SUBSTANCE ABUSE SCREEN FOR ALCOHOL, DRUGS AND TOBACCO: Did any of your parents have a problem with using alcohol or drugs? Yes- mom- alcoholic Do any of your friends (peers) have problems with drug or alcohol use? No Does your partner have a problem with drug or alcohol use? No Before you knew you were , how often did you drink beer, wine, wine coolers or liquor or use any kind of drug? Frequently marijuana In the past month, how often did you drink beer, wine, wine coolers or liquor or use any kind of drug? Rarely How much did you smoke, vape or use tobacco or nicotine in any form before you knew you were ? Former User -Quit Date 07/02/24 Genetic Screening Genetic Screening/Teratology Counseling- Includes patient, baby's father, or anyone in either family with: Patient's age 35 years or older as of estimated date of delivery: No Thalassemia (English, Greenlandic, Mediterranean, or background): MCV less than 80: No Neural tube defect (Meningomyelocele, Spina bifida, or Anencephaly): No Congenital heart defect: No Down syndrome: No Aries-Sachs (Ashkenazi Worship, Cajun, Japanese Greenlandic): No Nicole disease (Ashkenazi Worship): No Familial dysautonomia (Ashkenazi Worship): No Sickle cell disease or trait (): No Hemophilia or other blood disorders: No Muscular dystrophy: No Cystic fibrosis: No Bourbon's chorea: No Intellectual disability and/or autism: No Other inherited genetic or chromosomal disorder: Yes (Comment: john paul marie- dad's cousin's daughter) Maternal metabolic disorder (eg. Type 1 diabetes, PKU): No Patient or baby's father had child with defects not listed above: No Recurrent loss, or a stillbirth: (Comment: father's cousin- recurrent miscarriage) Medications (including supplements, vitamins, herbs, or OTC drugs)/illicit/recreational drugs/alcohol since last menstrual period: Yes If yes, agent(s) and strength/dosage: melatonin, metformin, marijuana CURRENT MEDICATIONS: Current Outpatient Medications Medication Sig albuterol HFA (PRO-AIR; VENTOLIN; PROVENTIL) 90 mcg/actuation inhaler Inhale 1-2 Puffs by mouth every 4 hours if needed for Shortness Of Breath or Wheezing. escitalopram oxalate (LEXAPRO) 20 mg tablet Take 1 Tablet (20 mg) by mouth once daily in the morning. metFORMIN (GLUCOPHAGE XR) 500 mg Extended-Release tablet Take 4 Tablets (2,000 mg) by mouth once daily with evening meal. Take 4 daily by mouth. ondansetron (ZOFRAN ODT) [address] 1 Tablet (4 mg) on the tongue every 8 hours if needed for Nausea/Vomiting. ondansetron (ZOFRAN) 8 mg tablet Take 1 Tablet (8 mg) by mouth every 8 hours if needed for Nausea/Vomiting. vit 28/iron fum/folic (multivitamin folic acid 1 mg) Take 1 Tablet by mouth once daily. No current facility-administered medications for this visit. Medications have been reviewed by me and are current to the best of my knowledge and ability. ALLERGIES: Patient has no known allergies. OBJECTIVE: Ht 1.644 m (5' 4.72) Wt 85.9 kg (189 lb 6.4 oz) LMP 05/15/2024 (Exact Date) BMI 31.79 kg/m ,URINE (no units) Date Value 01/18/2024 Negative POC HCG URINE (no units) Date Value 07/02/2024 POSITIVE (A) ASSESSMENT/PLAN: ICD-10-CM 1. Encounter for supervision of normal first in first trimester Z34.01 EDUCATION/PATIENT INSTRUCTIONS - Advised patient to start/continue vitamin. - Discussed risk of using alcohol, tobacco, other drugs in . - Discussed healthy lifestyle in . - Provided copy of Beginnings book and book inserts, discussed [id number] medications, and follow up. - Encouraged patient to call clinic at [phone] with any vaginal bleeding, fluid leaking from vagina, severe abdominal pain, nausea with severe vomiting, fever higher than 100.4F, painful urination, headache not relieved by Tylenol, or other concerns - labs completed with today's visit. - Patient informed to schedule 1st trimester dating ultrasound between 7-10 weeks. - Initial OB appointment with FP/OB scheduled. PHQ-9, and COVID-19 vaccine discussion to be completed at this visit. Future Appointments Date Time Provider Department Center 07/23/2024 10:15 AM [facility]ks [facility] Gabriela Souza RN .................... 07/10/2024 11:14 AM Last Filed Vital Signs Vital Sign Reading Time Taken Comments Blood Pressure 119/73 08/20/2024 10:22 AM ADVANCED MANUFACTURING TECHNICIAN Pulse 93 08/20/2024 10:22 AM ADVANCED MANUFACTURING TECHNICIAN Temperature 36.7 C (98.1 F) 07/29/2024 1:49 PM CDT Respiratory Rate 14 02/07/2024 12:44 PM CDT Oxygen Saturation 99% 08/20/2024 10:22 AM ADVANCED MANUFACTURING TECHNICIAN Inhaled Oxygen Concentration - - Weight 84.8 kg (187 lb) 08/20/2024 10:22 AM ADVANCED MANUFACTURING TECHNICIAN Height 164.4 cm (5' 4.72) 07/10/2024 10:46 AM C DT Body Mass Index 31.38 07/10/2024 10:46 AM CDT Plan of Treatment Upcoming Encounters Date Type Department Care Team (Late st Contact Info) Description 09/17/2024 9:25 AM ADVANCED MANUFACTURING TECHNICIAN OB Encounter [facility] [address] [place] [address] Michell Burks MD [address] [place] [address] 10/15/2024 10:15 AM ADVANCED MANUFACTURING TECHNICIAN OB Encounter [facility] [address] [place] [address] Michell Burks MD [address] [place] [address] Health Maintenance Due Date Last Done Comments Chlamydia for age 16-24 06/05/2020 06/05/2019 COVID-19 vaccine series ( season) 2024 08/28/2021, 03/17/2021 Influenza for age 9-49 06/09/2024 , 06/05/2019, 12/22/2015 Depression screening for age 12+ 03/27/2025 03/27/2024, 03/25/2024, 02/21/2024, Additional history exists BMI (ht and wt on same day) for age 18+ 07/10/2025 07/10/2024, 02/07/2024, 01/08/2024, Additional history exists Pap test for age 21-65 09/12/2026 09/12/2023 Tetanus booster 03/25/2034 03/25/2024, 01/24/2014 Pneumococcal series for age 6-64 Aged Out 01/25/2002, 2001, 2001 No longer eligible based on patient's age to complete this topic HPV series for age 9-26 Completed 09/01/20 14, 04/28/2014, 01/24/2014 Tdap Completed 03/25/2024, 01/24/2014 HIV for age 15-65 Completed 07/10/2024 Hepatitis C screening for age 18-79 Completed 07/10/2024, 04/07/2022 RSV vaccine for adults or (No Doses Required) Completed Procedures Procedure Name Priority Date/Time Associated Diagnosis Comments SCAN-RADIOLOGY REPORT 08/26/2024 12:00 AM ADVANCED MANUFACTURING TECHNICIAN US OB 1ST TRI SINGLE TA Routine 07/11/2024 7:51 AM CDT Encounter for supervision of normal first in first trimester TYPE & SCREEN Routine 07/10/2024 12:14 PM CDT Encounter for supervision of normal first in first trimester URINALYSIS REFLEX NOTE ([facility] REFLEX ONLY) Routine 07/10/2024 12:10 PM CDT UA W/ SEDIMENT EXAM REFLEXED PER CRITERIA Routine 07/10/2024 12:10 PM CDT Encounter for supervision of normal first in first trimester VARICELLA ZOSTER VIRUS ANTIBODY (IGG) ([facility]) Routine 07/10/2024 12:10 PM CDT Encounter for supervision of normal first in first trimester HIV 1/2 ANTIGEN/ANTIBODY FOURTH GENERATION W/RFL ([facility]) Routine 07/10/2024 12:10 PM CDT Encounter for supervision of normal first in first trimester ANTI HCV Routine 07/10/2024 12:10 PM CDT Encounter for supervision of normal first in first trimester HBSAG (HBS) Routine 07/10/2024 12:10 PM CDT Encounter for supervision of normal first in first trimester TREPONEMA PALLIDUM Routine 07/10/2024 12 :10 PM CDT Encounter for supervision of normal first in first trimester RUBELLA IMMUNE STATUS Routine 07/10/2024 12:10 PM CDT Encounter for supervision of normal first in first trimester URINE CULTURE Routine 07/10/2024 12:10 PM CDT Encounter for supervision of normal first in first trimester CBC W PLT NO DIFF Routine 07/10/2024 12: 10 PM CDT Encounter for supervision of normal first in first trimester URINE POCT Routine 07/02/2024 1:19 PM CDT Positive test ASSISTANT TO THE VICE PRESIDENT THIN PREP PAP SCREEN IMAGED Routine 09/12/2023 10:51 AM ADVANCED MANUFACTURING TECHNICIAN Pap smear for cervical cancer screening GC CHLAMYDIA TRACH PROBE Routine 06/05/2019 12:31 PM CDT Abdominal pain, unspecified abdominal location from Last 3 Months or Most Recently Relevant to Health Maintenance Results * SCAN-RADIOLOGY REPORT (08/26/2024 12:00 AM ADVANCED MANUFACTURING TECHNICIAN) Anatomical Region Laterality Modality Other Scanner OTHER * US 1ST TRIMESTER (< 14 weeks) [44011.0] (07/11/2024 7:51 AM CDT) Anatomical Region Laterality Modality , 1ST TRIMESTER Ultrasound 07/12/2024 1:58 PM CDT Impressions 07/12/2024 1:58 PM CDT Single living intrauterine with sonographic gestational age 7 weeks 3 days and a sonographic due date of 02/24/2025. Subchorionic hemorrhage measures 2.3 x 1.5 x 0.4 cm. Dictated by Brennan Perez MD @ 07/12/2024 1:58:59 PM (Electronically Signed) Narrative 07/12/2024 1:58 PM CDT For Patients: As a result of the Cures Act, medical imaging exams and procedure reports are released immediately into your electronic medical record. You may view this report before your referring provider. If you have questions, please contact your health care provider. INDICATION: First trimester scan, establish dates. COMPARISON: None. TECHNIQUE: Real-time persaud-scale imaging of the pelvis was performed. FINDINGS: Sonographic imaging demonstrates a single living intrauterine gestation. The embryo demonstrates a regular cardiac rate measuring 150 beats per minute. The embryo`s crown-rump length measurement of 1.2 cm corresponds to a gestational age of 7 weeks 3 days with a sonographic due date of 02/24/2025. There is a normal-appearing yolk sac. There are no gross abnormalities noted within the embryo at this early state of development. The gestational sac has a normal appearance. There is a 2.3 x 1.5 x 0.4 cm perigestational hemorrhage. The amount of fluid within the sac appears appropriate for gestational age. The cervix is closed. The myometrium appears normal. The ovaries are of normal size. Corpus luteal cyst right ovary. There are no suspicious fluid collections noted in the cul-de-sac. Procedure Note Brennan Perez MD - 07/12/2024 For Patients: As a result of the Cures Act, medical imagingexams and procedure reports are released immediately into your electronicmedical record. You may view this report before your referring provider.If you have questions, please contact your health care provider. INDICATION: First trimester scan, establish dates. COMPARISON: None. TECHNIQUE: Real-time persaud-scale imaging of the pelvis was performed. FINDINGS: Sonographic imaging demonstrates a single living intrauterine gestation.The embryo demonstrates a regular cardiac rate measuring 150 beats perminute. The embryo`s crown-rump length measurement of 1.2 cm correspondsto a gestational age of 7 weeks 3 days with a sonographic due date of02/24/2025. There is a normal-appearing yolk sac. There are no grossabnormalities noted within the embryo at this early state of development.The gestational sac has a normal appearance. There is a 2.3 x 1.5 x 0.4 cmperigestational hemorrhage. The amount of fluid within the sac appearsappropriate for gestational age. The cervix is closed. The myometrium appears normal. The ovaries are ofnormal size. Corpus luteal cyst right ovary. There are no suspicious fluidcollections noted in the cul-de-sac. IMPRESSION: Single living intrauterine with sonographic gestational age 7weeks 3 days and a sonographic due date of 02/24/2025. Subchorionic hemorrhage measures 2.3 x 1.5 x 0.4 cm. Dictated by Brennan Perez MD @ 07/12/2024 1:58:59 PM (Electronically Signed) Michell Burks MD [place] * TYPE AND SCREEN (07/10/2024 12:14 PM CDT) ABORH O Rh Positive 07/11/2024 5:49 AM CDT [facility] BLOOD B[facility] ANTIBODY SCREEN Negative Negative 07/11/2024 5:49 AM CDT [facility] CeQur-CENTRAL LAB BLOOD BANK SPECIMEN EXPIRATION DATE/TIME 07/13/24 23:59 07/11/2024 5:49 AM CDT [facility] Get Me Listed-CENTRAL LAB BLOOD BANK Blood BLOOD SPECIMEN / Unknown Non-Lab Venipuncture / Unknown 07/10/2024 12:14 PM CDT 07/10/2024 12:14 PM CDT Michell Burks MD BLOOD BANK [facility]-CENTRAL LAB BLOOD BANK [address] [place] [address], [place] [phone] * URINALYSIS REFLEX NOTE ([facility] REFLEX ONLY) (07/10/2024 12:10 PM CDT) NOTE [facility] Comment: This urine was analyzed for the presence of WBC, RBC, bacteria, casts, and other formed elements. Only those elements seen were reported. 07/10/2024 12:1 0 PM CDT 07/10/2024 12:11 PM CDT Michell Burks MD SEND OUTS Performing Organization Address [facility] de Phone Number Sherpaa [facility] [address] [place] [address], [facility] [address] [place] [address] * VARICELLA ZOSTER VIRUS ANTIBODY (IGG) ([facility]) (07/10/2024 12:10 PM CDT) Pathologist [facility] VARICELLA ZOSTER VIRUS ANTIBODY (IGG) 6.51 S/CO [facility] Comment: Signal to Cut-off S/CO Interpretation --------- <1.00 Negative - Antibody not detected > or = 1.00 Positive - Antibody detected A positive result indicates that the patient has antibody to VZV but does not differentiate between an active or past infection. The clinical diagnosis must be interpreted in conjunction with the clinical signs and symptoms of the patient. This assay reliably measures immunity due to previous infection but may not be sensitive enough to detect antibodies induced by vaccination. Thus, a negative result in a vaccinated individual does not necessarily indicate susceptibility to VZV infection. A more sensitive test for vaccination-induced immunity is Varicella Zoster Virus Antibody Immunity Screen, ACIF. Blood BLOOD SPECIMEN / Unknown 07/10/2024 12:10 PM CDT 07/10/2024 12:11 PM CDT Michell Burks MD SEND OUTS Performing Organization Address [facility] Co de Phone Number Sherpaa [facility] [address] [place] [address], [facility] [address] [place] [address] * HIV 1/2 ANTIGEN/ANTIBODY FOURTH GENERATION W/RFL ([facility]) (07/10/2024 12:10 PM CDT) HIV AG/AB, 4TH GEN NON-REACT LUPE NON-REACT LUPE [facility] Comment: HIV-1 antigen and HIV-1/HIV-2 antibodies were not detected. There is no laboratory evidence of HIV infection. PLEASE NOTE: This information has been disclosed to you from records whose confidentiality may be protected by state law. If your state requires such protection, then the state law prohibits you from making any further disclosure of the information without the specific written consent of the person to whom it pertains, or as otherwise permitted by law. A general authorization for the release of medical or other information is NOT sufficient for this purpose. For additional information please refer to http://education.TechShop/faq/HAK832 (This link is being provided for informational/ educational purposes only.) The performance of this assay has not been clinically validated in patients less than 2 years old. Blood BLOOD SPECIMEN / Unknown 07/10/2024 12:10 PM CDT 07/10/2024 12:11 PM CDT Michell Burks MD SEND OUTS Sherpa[facility] [address] [place] [address], [facility] [address] [place] [address] * TREPONEMA PALLIDUM (07/10/2024 12:10 PM CDT) T. PALLIDUM AB NEGATIVE NEGATIVE [facility] Comment: No antibodies to T. pallidum (the agent causing syphilis) were detected in the specimen. This result, however, does not exclude very recent T. pallidum infection; testing of a second specimen, collected 2-4 weeks after this specimen, is recommended if the index of suspicion for recent infection is high. Blood BLOOD SPECIMEN / Unknown 07/10/2024 12:10 PM CDT 07/10/2024 12:11 PM CDT Michell Burks MD SEND OUTS Performing Organization Address [facility] Co de Phone Number Sherpaa [facility] [address] [place] [address], [place] [phone] [facility] [address] [place] [address] * RUBELLA IMMUNE STATUS (07/10/2024 12:10 PM CDT) RUBELLA AB (IGG), IMMUNE STATUS 3.32 Index [facility] Comment: Index Interpretation ----- <0.90 Not consistent with immunity 0.90-0.99 Equivocal > or = 1.00 Consistent with immunity The presence of rubella IgG antibody suggests immunization or past or current infection with rubella virus. Blood BLOOD SPECIMEN / Unknown 07/10/2024 12:10 PM CDT 07/10/2024 12:11 PM CDT Michell Burks MD SEND OUTS Performing Organization Address [facility] Co de Phone Number [facility] [address] [place] [address], [place] [phone] [facility] [address] [place] [address] * HBSAG (HBS) (07/10/2024 12:10 PM CDT) HEPATITIS B SURFACE ANTIGEN NON-REACTI VE NON-REACTI VE [facility] Comment: For additional information, please refer to http://education.TechShop/faq/HAH118 (This link is being provided for informational/ educational purposes only.) Blood BLOOD SPECIMEN / Unknown 07/10/2024 12:10 PM CDT 07/10/2024 12:11 PM CDT Michell Burks MD SEND OUTS Performing Organization Address [facility] Co de Phone Number Sherpaa [facility] [address] [place] [address], [facility] [address] [place] [address] * URINE CULTURE (07/10/2024 12:10 PM CDT) CULTURE, URINE, ROUTINE SEE NOTE [facility] Comment: CULTURE, URINE, ROUTINE Micro Number: [id number] Test Status: Final Specimen Source: Urine, clean catch Specimen Quality: Adequate Result: Mixed genital sarkis isolated. These superficial bacteria are not indicative of a urinary tract infection. No further organism identification is warranted on this specimen. If clinically indicated, recollect clean-catch, mid-stream urine and transfer immediately to Urine Culture Transport Tube. Urine URINE SPECIMEN / Unknown 07/10/2024 12:10 PM CDT 07/10/2024 12:11 PM CDT Michell Burks MD MICROBIOLO GY Performing Organization Address [facility] Co de Phone Number Sherpaa [facility] [address] [place] [address], [facility] [address] [place] [address] * ANTI HCV (07/10/2024 12:10 PM CDT) HEPATITIS C ANTIBODY NON-REACTI VE NON-REACT LUPE [facility] Comment: HCV antibody was non-reactive. There is no laboratory evidence of HCV infection. In most cases, no further action is required. However, if recent HCV exposure is suspected, a test for HCV RNA (test code 15415) is suggested. For additional information please refer to http://education.TechShop/faq/QVT70l4 (This link is being provided for informational/ educational purposes only.) Blood BLOOD SPECIMEN / Unknown 07/10/2024 12:10 PM CDT 07/10/2024 12:11 PM CDT Michell Burks MD SEND OUTS Sher[facility] [address] [place] [address], [facility] [address] [place] [address] * (ABNORMAL) CBC W PLT NO DIFF (07/10/2024 12:10 PM CDT) WHITE BLOOD CELL COUNT 12.8(H) 3.8 - 10.8 Thousand/u L [facility] RED BLOOD CELL COUNT 4.32 3.80 - 5.10 Million/uL [facility] HEMOGLOBIN 12.5 11.7 - 15.5 g/dL [facility] HEMATOCRIT 37.5 35.0 - 45.0 % [facility] MCV 86.8 80.0 - 100.0 fL [facility] MCH 28.9 27.0 - 33.0 pg [facility] MCHC 33.3 32.0 - 36.0 g/dL [facility] Comment: For adults, a slight decrease in the calculated MCHC value (in the range of 30 to 32 g/dL) is most likely not clinically significant; however, it should be interpreted with caution in correlation with other red cell parameters and the patient's clinical condition. RDW 14.3 11.0 - 15.0 % [facility] PLATELET COUNT 413(H) 140 - 400 Thousand/u L [facility] MPV 9.5 7.5 - 12.5 fL [facility] Blood BLOOD SPECIMEN / Unknown 07/10/2024 12:10 PM CDT 07/10/2024 12:11 PM CDT Michell Burks MD HEMATOLOGY [facility] [address] [place] [address], [place] [phone] [facility] [address] [place] [address] * (ABNORMAL) URINALYSIS W REFLEX MICROSCOPIC IF POSITIVE [70252.2] (07/10/2024 12:10 PM CDT) COLOR YELLOW YELLOW [facility] APPEARANCE CLEAR CLEAR [facility] SPECIFIC GRAVITY 1.020 1.001 - 1.035 [facility] PH 6.0 5.0 - 8.0 [facility] GLUCOSE NEGATIVE NEGATIVE [facility] BILIRUBIN NEGATIVE NEGATIVE [facility] KETONES NEGATIVE NEGATIVE [facility] OCCULT BLOOD NEGATIVE NEGATIVE [facility] PROTEIN NEGATIVE NEGATIVE [facility] NITRITE NEGATIVE NEGATIVE [facility] LEUKOCYTE ESTERASE TRACE(A) NEGATIVE [facility] WBC UA NONE SEEN < OR = 5 /HPF [facility] RBC UA NONE SEEN < OR = 2 /HPF [facility] SQUAMOUS EPITHELIAL CELLS UA NONE SEEN < OR = 5 /HPF [facility] BACTERIA UA NONE SEEN NONE SEEN /HPF [facility] HYALINE CAST NONE SEEN NONE SEEN /LPF [facility] Urine URINE SPECIMEN / Unknown 07/10/2024 12:10 PM CDT 07/10/2024 12:11 PM CDT Michell Burks MD URINE [facility] [address] [place] [address], [place] [phone] [facility] [address] [place] [address] * (ABNORMAL) URINE POCT (07/02/2024 1:19 PM CDT) POC HCG URINE POSITIVE(A ) NEGATIVE [facility] Urine URINE SPECIMEN / Unknown 07/02/2024 1:19 PM CDT 07/02/2024 1:20 PM CDT Lindsey Gabriella Valdez DO URINE [facility] [address] [place] [address], [facility] [address] [place] [address] * ASSISTANT TO THE VICE PRESIDENT THIN PREP PAP SCREEN IMAGED (09/12/2023 10:51 AM ADVANCED MANUFACTURING TECHNICIAN) Case Report Gynecologic Cytology Report Case: [id number] Authorizing Provider: Shaylee Cruz MD Collected: 09/12/2023 1051 Ordering Location: [facility] Received: 09/12/2023 1051 Clinic First Screen: Lazara Zimmer Specimen: ASSISTANT TO THE VICE PRESIDENT ThinPrep Vial Screening, Cervical 09/20/2023 11:09 AM ADVANCED MANUFACTURING TECHNICIAN [facility]-C ENTRAL LABORATORY INTERPRETATION/ RESULT NEGATIVE FOR INTRAEPITHELIAL LESION OR MALIGNANCY (NIL) (none) 09/20/2023 11:09 AM ADVANCED MANUFACTURING TECHNICIAN [facility]-C ENTRAL LABORATORY NISM(S) Shift in sarkis suggestive of bacterial vaginosis 09/20/2023 11:09 AM ADVANCED MANUFACTURING TECHNICIAN [email or web address] LABORATORY-C ENTRAL LABORATORY SPECIMEN ADEQUACY Satisfactory for evaluation No endocervical component seen 09/20/2023 11:09 AM ADVANCED MANUFACTURING TECHNICIAN [employer]C ENTRAL LABORATORY Date of LMP 08/10/2023 09/20/2023 11:09 AM ADVANCED MANUFACTURING TECHNICIAN [facility] ENTRAL LAB[facility] Last Pap Date First pap 09/20/2023 11:09 AM ADVANCED MANUFACTURING TECHNICIAN [facility] ENTRAL LABORATORY Last Pap Result First Pap/Unknown 11:09 AM ADVANCED MANUFACTURING TECHNICIAN [facility] ENTRAL LABORATORY Abnormal Pap or [place] Bx in last 5 years No 09/20/2023 11:09 AM ADVANCED MANUFACTURING TECHNICIAN [facility] ENTRAL LABORATORY Menstrual Status Regular Periods 09/20/2023 11:09 AM ADVANCED MANUFACTURING TECHNICIAN [facility] LABORATORY [place] Bx Done Today No 09/20/2023 11:09 AM ADVANCED MANUFACTURING TECHNICIAN [facility] Additional Information None given 09/20/2023 11:09 AM ADVANCED MANUFACTURING TECHNICIAN [facility] ENTRWV LABORATORY Comment: Cytology is screened at [facility] - [address], [place] [address] and [facility] - [address], [place] [address] and [facility] - [address] [place] [address] Interpreted at [facility] - [address] [place] [address] Automated Review Successful 09/20/2023 11:09 AM ADVANCED MANUFACTURING TECHNICIAN [facility] ENTRWV LABORATORY Comment:Specimen processed s uccessfully by automated driver wheelchair device, ThinPrep Imaging System, [employer] Note The pap test is a screening technique, not a diagnostic procedure. It is used primarily to screen for squamous cancers and precursor lesions. Published studies have shown that it is subject to both false negative and false positive results. The pap test should not be used as the sole means to diagnose or exclude pre-malignant and malignant lesions. 09/20/2023 11:09 AM ADVANCED MANUFACTURING TECHNICIAN [facility] LABORATORY Other (Cervical) Non-Blood / Unknown 09/12/2023 10:51 AM ADVANCED MANUFACTURING TECHNICIAN 09/12/2023 10:51 AM ADVANCED MANUFACTURING TECHNICIAN Shaylee Cruz MD PATHOLOGY/[facility]OL [facility] [address] [place] [address], [place] * GC CHLAMYDIA TRACH PROBE (06/05/2019 12:31 PM CDT) CHLAMYDIA PROBE Negative 9 12:49 PM CDT [facility] LABORATORY-[facility] TRAL LABORATORY N GONORRHOEAE PROBE Negative 06/06/2019 12:49 PM CDT [facility] TRAL LABORATORY Other URINE SPECIMEN / Unknown Non-Blood / Unknown 06/05/2019 12:31 PM CDT 06/05/2019 12:31 PM CDT Sharon TAVERA MICROBIOLOGY [facility] LABORATORY-CENTRAL LABORATORY [address] [place] [address], [place] from Last 3 Months or Most Recently Relevant to Health Maintenance Advance Directives * Full Code (Latest Code Status on File) Date Activated Date Inactivated Comments 01/18/2024 8:29 AM 01/18/2024 3:24 PM Question Answer Comments Code Status Discussion: Reviewed Preferences Care Teams Clinical Education Coordinator Relationship Specialty [place] [address] [place] [address] PCP - General Family Practice 04/07/22
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
--- OUTSIDE RECORDS SUMMARY | 2024-09-13 15:33 | XMS_ITS | Referral Summary ---
Author Organization [facility] Address [address] [place] [address] Care Team Providers Care Motor Hotel Manager Name Role Phone Channing Brush MD Primary Care Provider [phone] Allergies No known active allergies Medications metFORMIN (GLUCOPHAGE) 500 MG tablet Take 500 mg by mouth daily (with breakfast) Active escitalopram (LEXAPRO) 10 MG tablet Take 10 mg by mouth daily Active oxyCODONE (ROXICODONE) 5 MG tabletIndicatio ns:Hemorrhagic cyst of right ovary Take 1 tablet (5 mg) by mouth every 3 hours as needed for severe pain or moderate pain 12 tablet 09/30/2023 Active acetaminophen (TYLENOL) 500 MG tabletIndicatio ns:Hemorrhagic cyst of right ovary Take 1 tablet (500 mg) by mouth every 6 hours as needed for mild pain 09/30/2023 Active acetaminophen (TYLENOL) 500 MG tabletIndicatio ns:Hemorrhagic cyst of right ovary Take 1 tablet (500 mg) by mouth 4 times daily 09/30/2023 Active ibuprofen (ADVIL/MOTRIN) 600 MG tabletIndicatio ns:Hemorrhagic cyst of right ovary Take 1 tablet (600 mg) by mouth 3 times daily as needed for moderate pain 09/30/2023 Active Active Problems Problem Noted Date Diagnosed Date Nausea 09/29/2023 Right sided abdominal pain 09/29/2023 Leukocytosis, unspecified type 09/29/2023 Hemorrhagic cyst of right ovary 09/29/2023 Suicidal ideation 02/15/2018 Immunizations Name Administration Dates Next Due Influenza Vaccine >6 months,quad, PF 09/30/2023 Social History Tobacco Use Types Packs/Day Years Used Date Smoking Tobacco: Never Smokeless Tobacco: Never Tobacco Cessation:Counseling Given: Not Answered Alcohol Use Standard Drinks/Week Comments No 0 (1 standard drink = 0.6 oz pur e alcohol) Adolescent Education Answer Date Record ed Getting School Help Needed Not on file 06/30 Comments Unknown Sex and Gender Information Value Date Recorded Sex Assigned at Not on file Legal Sex Female 11:33 PM CDT Gender Identity Not on file Sexual Orientation Not on file Last Filed Vital Signs Vital Sign Reading Time Taken Comments Blood Pressure 121/72 04/04/2024 5:12 PM CDT Pulse 70 04/04/2024 5:12 PM CDT Temperature 36.8 C (98.3 F) 04/04/2024 1:05 PM CDT Respiratory Rate 16 04/04/2024 5:12 PM CDT Oxygen Saturation 100% 04/04/2024 5:12 PM CDT Inhaled Oxygen Concentration - - Weight 91 kg (200 lb 9.9 oz) 04/04/2024 1:05 PM CDT Height 162.6 cm (5' 4) 04/04/2024 1:05 PM CDT Body Mass Index 34.44 04/04/2024 1:05 PM CDT Plan of Treatment Not on file Procedures Procedure Name Priority Date/Time Associated Diagnosis Comments CHLAMYDIA TRACHOMATIS PCR STAT 05/27/2017 12:50 AM CDT Ovarian cyst, right from Last 3 Months or Most Recently Relevant to Health Maintenance Results * Chlamydia trachomatis PCR (05/27/2017 12:50 AM CDT) Specimen Description Cervix 05/27/2017 1:03 AM CDT [facility] Chlamydia Trachomatis PCR Negative NEG^Negat clara 05/28/2017 1:38 PM CDT [facility] Comment: Negative for C. trachomatis rRNA by ripening room operator mediated amplification. A negative result by ripening room operator mediated amplification does not preclude the presence of C. trachomatis infection because results are dependent on proper and adequate collection, absence of inhibitors, and sufficient rRNA to be detected. Cervical swab (specimen) 05/27/2017 12:50 AM CDT 05/27/2017 1:03 AM CDT us Bre Negron MD LAB - MICRO GENERAL ORDERABLES Final Result [facility] [address] [place] [address], [facility] [address] [place] [address], [facility] [phone] from Last 3 Months or Most Recently Relevant to Health Maintenance Insurance [id number] [id number] [facility] [id number] [id number] [facility] Member Subscriber Plan / Payer (Ef fective 2024-Present) Name:Lisa Willis Relation to Subscriber:Self Name:Lisa Willis Payer ID:[id number] (NAIC) Group ID:Not on file Type:[employer] Address: [address] [place] [id number] Advance Directives For more information, please contact: [phone] * Full Code (Latest Code Status on File) Date Activated Date Inactivated Comments 09/29/2023 4:31 PM 09/30/2023 4:43 PM All basic and advanced life-sustaining interventions are performed as appropriate Question Answer Comments Code status determined by: Discussion with patie nt/ legal decision maker * Full Code Date Activated Date Inactivated Comments 02/15/2018 9:28 PM 02/16/2018 4:09 PM Care Teams Motor Hotel Manager Relationship Specialty [place] [address] [place] [address] PCP - General 10/26/22
--- OUTSIDE RECORDS SUMMARY | 2024-09-13 15:33 | XMS_ITS | Clinical Summary ---
Author Organization [facility] Address [address] [place] [address] Care Team Providers Care Oven Laborer Name Role Phone Channing Brush MD Primary Care Provider [phone] Allergies No known active allergies Medications metFORMIN [...] 04/04/2024 1:05 PM CDT Plan of Treatment Health Maintenance Due Date Last Done Comments ADVANCE CARE PLANNING 2001 ANNUAL REVIEW OF HM ORDERS 2001 YEARLY PREVENTIVE VISIT 2001 HIV SCREENING 2016 HEPATITIS C SCREENING 2019 CHLAMYDIA SCREENING 06/05/2020 06/05/2019, 7 PAP 2022 PHQ-2 (once per calendar year) 2023 COVID-19 Vaccine ( - 2023- season) 2024 08/28/2021, 03/17/2021 INFLUENZA VACCINE (#1) 2024 , 06/05/2019, 12/22/2015 DTAP/TDAP/TD IMMUNIZATION (8 - Td or Tdap) 03/25/2034 03/25/2024, 01/24/2014, 01/31/2006, Additional history exists RSV VACCINE (1 - 1-dose 75+ series) 2076 Pneumococcal Vaccine: Pediatrics (0 to 5 Years) and At-Risk Patients (6 to 64 Years) Aged Out 01/25/2002, 2001, 2001 No longer eligible based on patient's age to complete this topic HEPATITIS B IMMUNIZATION Completed 002, 2001, 2001 HPV IMMUNIZATION Completed 09/01/2014, , 01/24/2014 MENINGITIS IMMUNIZATION Completed 06/05/2019, 01/24 RSV MONOCLONAL ANTIBODY Aged Out No l onger eligible based on patient's age to complete this topic Procedures Procedure Name Priority Date/Time Associated Diagnosis Comments CHLAMYDIA TRACHOMATIS PCR STAT 05/27/2017 12:50 AM CDT Ovarian cyst, right from Last 3 Months or Most Recently Relevant to Health Maintenance Results * Chlamydia trachomatis PCR (05/27/2017 12:50 AM CDT) Specimen Description Cervix 05/27/2017 1:03 AM CDT [facility] Chlamydia Trachomatis PCR Negative NEG^Negat clara 05/28/2017 1:38 PM CDT [facility] Comment: Negative for C. trachomatis rRNA by sap pi architect mediated amplification. A negative result by sap pi architect mediated amplification does not preclude the presence of C. trachomatis infection because results are dependent on proper and adequate collection, absence of inhibitors, and sufficient rRNA to be detected. Cervical swab (specimen) 05/27/2017 12:50 AM CDT 05/27/2017 1:03 AM CDT us Bre Negron MD LAB - MICRO GENERAL ORDERABLES Final Result [facility] [address] [place] [address], [facility] [address] [place] [address], [facility] [phone] from Last 3 Months or Most Recently Relevant to Health Maintenance Insurance [facility] Advance Directives For more information, please contact: [phone] * Full Code (Latest Code Status on File) Date Activated Date Inactivated Comments 09/29/2023 4:31 PM 09/30/2023 4:43 PM All basic and advanced life-sustaining interventions are performed as appropriate Question Answer Comments Code status determined by: Discussion with patie nt/ legal decision maker * Full Code Date Activated Date Inactivated Comments 02/15/2018 9:28 PM 02/16/2018 4:09 PM Care Teams Oven Laborer Relationship Specialty [place] [address] [place] [address] PCP - General 10/26/22
--- OUTSIDE RECORDS SUMMARY | 2024-09-13 15:33 | XMS_ITS | Encounter Summary ---
Author Organization [facility] Address [address] [place] [address] Care Team Providers Care Bin Filler Name Role Phone Ness Conroy MD Primary Care Provider [phone] Channing Brush MD Primary Care Provider [phone] Encounter Details Date Type Department Care Team (Late st Contact Info) Description 07/04/2021 Documentation Only INTERFACED REPORT Unknown, Provider Social History Tobacco Use Types Packs/Day Years Used Date Smoking Tobacco: Never Smokeless Tobacco: Never Alcohol Use Standard Drinks/Week Comments No 0 (1 standard drink = 0.6 oz pur e alcohol) Comments Unknown Sex and Gender Information Value Date Recorded Sex Assigned at Not on file Legal Sex Female 11:33 PM CDT Gender Identity Not on file Sexual Orientation Not on file COVID-19 Exposure Response Date Recorded In the last month, have you been in contact with someone who was confirmed or suspected to have Coronavirus / COVID-19? No / Unsure 07/04/2021 1:08 PM CDT documented as of this encounter Plan of Treatment Not on file documented as of this encounter Visit Diagnoses Not on filedocumented in this encounter Care Teams Bin Filler Relationship Specialty Start Date End Date Ness Conroy MD PCP - General Pediatrics 05/26/17 10/25/22 [place] [address] [place] [address] PCP - General 10/26/22 documented as of this encounter
--- OUTSIDE RECORDS SUMMARY | 2024-09-18 10:44 | XMS_ITS | Clinical Summary ---
Author Organization [employer] Address [place], [place] [address] Care Team Providers Care Svp Programmatic Tv Name Role Phone Channing Brush MD Primary Care Provider [phone] Allergies No known active allergies Medications albuterol HFA (PRO-AIR; VENTOLIN; PROVENTIL) 90 mcg/actuation inhalerIndicati ons:Bronchitis Inhale 1-2 Puffs by mouth every 4 hours if needed for Shortness Of Breath or Wheezing. 18 g 11 4 Active escitalopram oxalate (LEXAPRO) 20 mg tabletIndicatio ns:Anxiety,Mariella r depressive disorder, recurrent, moderate (HC) Take 1 Tablet (20 mg) by mouth once daily in the morning. 90 Tablet 3 4 Active vit 28/iron fum/folic (multivitamin folic acid 1 mg)Indications: Positive test Take 1 Tablet by mouth once daily. 90 Tablet 3 4 Active hydrOXYzine HCL (ATARAX) 25 mg tabletIndicatio ns:Anxiety Take 1-2 Tablets (25-50 mg) by mouth every 6 hours if needed for Anxiety (bedtime). 25 Tablet 4 Active buPROPion (WELLBUTRIN XL) 150 mg Extended-Releas e tabletIndicatio ns:Anxiety Take 1 Tablet (150 mg) by mouth once daily in the morning. 90 Tablet 3 4 Active pyridoxine, vitamin B6, (VITAMIN B6) 25 mg tabletIndicatio ns:Nausea and vomiting in Take 1 Tablet (25 mg) by mouth once daily. 60 Tablet 2 4 Active famotidine (PEPCID) 10 mg tabletIndicatio ns:Nausea and vomiting in Take 1 Tablet (10 mg) by mouth two times daily. 60 Tablet 1 4 Active Active Problems Problem Noted Date Diagnosed Date 08/07/2024 Overview (08/07/2024): Primary OB patient of Dr. Burks Preferred name: Lisa Language/cultural preferences: Nicaraguan OB HISTORY / PERTINENT MEDICAL HISTORY: Estimated [...] marijuana and tobacco use- quit 07/02/24 COURSE: NIPT:{NIPT1:89010} Anatomy US at wd GA: Placenta {NORMAL:82624}, {placenta1:50038} Sex {ANW MB Gender:0985685} Last estimated weight: Additional Ultrasounds: Vaccination: Flu 2022 Tdap (27-36w) 03/25/24 BMI: Body mass index is 31.74 kg/m . Pre-eclampsia risk on aspirin? NO LABS: GBS: {gbs:77192} 28wk labs: {28wOBlab:62234} OB labs: Needs GC/Chlam ABORH Date Value [...] years Anxiety 03/08/2022 Current mild episode of mariella r depressive disorder without prior episode 01/16/2018 [...] for refills. Moved & started new school, [employer] . Doing very well. 12/31/12 Changed to [...] Encounters Date Type Department Care Team Description 09/17/2024 9:25 AM RAIL MAINTENANCE WORKER OB Encounter [facility] [address] [place] [address] Michell Burks MD Care (17 weeks 5 days //Dizzy, fatigue, congestion, weakness. may not be related.) 09/16/2024 Travel 08/26/2024 Orders Only [facility] Scanner 1 scan: (1-Ord) GUSTABO WASHINGTON LT MIN 3V, 08/26/2024 08/20/2024 10:15 AM RAIL MAINTENANCE WORKER OB Encounter [facility] [address] [place] [address] Michell Burks MD Care (13 weeks 6 days/Abdominal pain with eating, no appetite, extreme nausea, occasional vomiting. /Dizziness, double vision - 5 days ago. ) 08/19/2024 Travel 08/07/2024 Telephone [facility] [address] [place] [address] Michell Burks MD Appointment 07/29/2024 1:45 PM CDT Office Visit [facility] [address] [place] [address] Channing Brush MD Sinus Problem (Sinus congestion ); Cough (Cough and loss of voice, started weekend of July 20, 2024. ) 07/29/2024 Travel 07/23/2024 10:15 AM CDT OB Encounter [facility] [address] [place] [address] Michell Burks MD Care (9 weeks 6 days ) 07/23/2024 Travel 07/11/2024 7:30 AM CDT Ancillary Procedure [facility] [address] [place] [address] 07/10/2024 10:30 AM CDT OB Encounter [facility] [address] [place] [address] Education (RN OB intake) 07/10/2024 Travel 07/02/2024 12:55 PM CDT Office Visit [facility] [address] [place] [address] Lindsey Valdez, Confirmation (Positive test yesterday, first day of last period 05/15/24) 07/02/2024 Travel from Last 3 Months Immunizations Name Administration Dates Next Due COVID-19 vaccine (Johnny-J&J) SONDRA MARIE DTaP 01/31/2006, 4,01/25/2002,11/12,2001 HIB-HepB (Comvax) 06/18/2002,2001,09/07/20 01 [...] at Not on file Legal Sex Female 5:44 AM RAIL MAINTENANCE WORKER Gender Identity Not on file Sexual Orientation Not on file Obstetrics History Para Term AB IAB SAB Ectopic Multiple Livin g Live Births 1 0 0 0 0 0 0 0 0 0 0 Date Outcome GA Total Labor Labor/2nd/3rd Weight Sex Type Anes PTL Gabriella A1 A5 Name Clin Current Summary Episode Dates Number of Fetuses Estimated Date of Delivery 07/10/2024 - Present (09/18/2024) 02/19/2025 (set by Gabriela Souza RN on 07/10/2024 based on Last Menstrual Period on 05/15/2024 (Exact Date)) Dating Summary Based On MERCEDES [place] Diff Last Menstrual Period on 05/15/2024 (Exact Date) 02/19/2025 Working Vitals Pregravid Weight Height TWG (As of 09/18/2024) Pregrav id BMI 85.3 kg (188 lb) 1.644 m (5' 4.72) 1.87 kg (4 lb 2 oz ) 31.55 Notes Progress Notes - OB Encounte r - 09/17/2024 - GA:17w6d 09/17/2024 - d - Michell Burks MD S: Patient here today for routine visit. Doing well, no concerns, taking PNV's. URI symptoms after Thanksgiving. She went to the ED with chest pain and shortness of breath, left before being seen. Both have improved especially in the last few days.. She is not wheezing anymore. Nausea has significantly improved. She is taking pepcid twice daily. Unsure about movement. No vaginal bleeding/discharge, loss of fluid, contractions, dysuria or other urinary symptoms. No headache, vision changes, RUQ or epigastric pain, facial or extremity edema. O: See flowsheet. A/P: 24 y.o. at 17w6d, doing well. 1. Encounter for supervision of normal first in second trimester (Primary) 2. Viral URI - anatomy at 20 weeks ordered today, patient to schedule - GCT, hemoglobin and treponema at next visit - Viral URI symptoms improving. - Reviewed labor precautions. - Return in 4wks for OB FU. Michell Burks MD .................... 09/17/2024 9:37 AM MAINTENANCE WORKER Progress Notes - OB Encounte r - [...] Michell Burks MD .................... 08/20/2024 10:38 AM MAINTENANCE WORKER Progress Notes - OB Encounte r - 07/23/2024 - GA:9w6d 07/23/2024 - 9w6d - Michell Burks MD Clinic Note: First [...] 2019 chlamydia Suicidal intent 02/15/2018 Admitted for [facility]; overnight only, then d/c'd AMA, per parent (mom) wishes Past Surgical History: . Laterality Date NM TONSILLECTOMY & ADENOIDECTOMY AGE 13/> Bilateral 01/18/2024 [...] 2019 chlamydia Suicidal intent 02/15/2018 Admitted for [facility]; overnight only, then d/c'd AMA, per parent [...] of estimated date of delivery: No Thalassemia (Grenadian, Tristanian, Mediterranean, or background): MCV less than 80: No Neural tube defect (Meningomyelocele, Spina bifida, or Anencephaly): No Congenital heart defect: No Down syndrome: No Aries-Sachs (Ashkenazi Shinto, Cajun, Marshallese Towns): No Nicole disease (Ashkenazi Shinto): No Familial dysautonomia (Ashkenazi Shinto): No Sickle cell disease or trait (): No Hemophilia or other blood disorders: No Muscular dystrophy: No Cystic fibrosis: No Cheshire's chorea: No Intellectual disability and/or autism: No Other inherited genetic or chromosomal disorder: Yes (Comment: john paul peralesquintin- dad's cousin's daughter) Maternal metabolic disorder (eg. [...] of Beginnings book and book inserts, discussed [id number] medications, and follow up. - Encouraged patient to call clinic at [phone] with any vaginal bleeding, fluid leaking from [...] Center 07/23/2024 10:15 AM Michell Burks MD NFLD NFLD Gabriela Souza RN .................... 07/10/2024 11:14 AM Last Filed Vital Signs Vital Sign Reading Time Taken Comments Blood Pressure 108/68 09/17/2024 9:13 AM RAIL MAINTENANCE WORKER Pulse 97 09/17/2024 9:13 AM RAIL MAINTENANCE WORKER Temperature 36.7 C (98.1 F) 07/29/2024 1:49 PM CDT Respiratory Rate 14 02/07/2024 12:44 PM CDT Oxygen Saturation 99% 09/17/2024 9:13 AM RAIL MAINTENANCE WORKER Inhaled Oxygen Concentration - - Weight 87.1 kg (192 lb 2 oz) 09/17/2024 9:13 AM RAIL MAINTENANCE WORKER Height 164.4 cm (5' 4.72) 07/10/2024 10:46 AM C DT Body Mass Index 32.24 07/10/2024 10:46 AM CDT Plan of Treatment Upcoming Encounters Date Type Department Care Team (Late st Contact Info) Description 10/01/2024 10:30 AM RAIL MAINTENANCE WORKER Ancillary Procedure [facility] [address] [place] [address] 10/15/2024 10:15 AM RAIL MAINTENANCE WORKER OB Encounter [facility] [address] [place] [address] Michell Burks MD [address] [place] [address] Health Maintenance Due Date Last Done Comments [...] Diagnosis Comments SCAN-RADIOLOGY REPORT 08/26/2024 12:00 AM RAIL MAINTENANCE WORKER US OB 1ST TRI SINGLE TA Routine [...] Routine 07/02/2024 1:19 PM CDT Positive test PROOF MACHINE OPERATOR THIN PREP PAP SCREEN IMAGED Routine 09/12/2023 10:51 AM RAIL MAINTENANCE WORKER Pap smear for cervical cancer screening GC CHLAMYDIA TRACH PROBE Routine 06/05/2019 12:31 PM CDT Abdominal pain, unspecified abdominal location from Last 3 Months or Most Recently Relevant to Health Maintenance Results * SCAN-RADIOLOGY REPORT (08/26/2024 12:00 AM RAIL MAINTENANCE WORKER) Anatomical Region Laterality Modality Other us Scanner OTHER Final Result * US 1ST TRIMESTER (< 14 weeks) [74810.0] (07/11/2024 7:51 AM CDT) Anatomical Region Laterality [...] 1:58:59 PM (Electronically Signed) Michell Burks MD [facility] nal Result * TYPE AND SCREEN (07/10/2024 12:14 PM CDT) ABORH O Rh Positive 07/11/2024 5:49 AM CDT [facility] BLOOD BANK ANTIBODY SCREEN Negative Negative 07/11/2024 5:49 AM CDT [facility] BLOOD BANK SPECIMEN EXPIRATION DATE/TIME 07/13/24 23:59 07/11/2024 5:49 AM CDT [facility] BLOOD BANK Blood BLOOD SPECIMEN / Unknown Non-Lab Venipuncture / Unknown 07/10/2024 12:14 PM CDT 07/10/2024 12:14 PM CDT Michell Burks MD BLOOD BANK Fi nal Result [facility] BLOOD BANK [address] [place] [address], [place] [phone] * URINALYSIS REFLEX NOTE ([facility] REFLEX ONLY) (07/10/2024 12:10 PM CDT) NOTE UA [facility] Comment: This urine was analyzed for the presence of WBC, RBC, bacteria, casts, and other formed elements. Only those elements seen were reported. 07/10/2024 12:1 0 PM CDT 07/10/2024 12:11 PM CDT Michell Burks MD SEND OUTS Fi nal Result Performing Organization Address [facility] Co de Phone Number [facility] [address] [facility], [place] [address], [place] [phone] [facility] [address] [place] [address] * VARICELLA ZOSTER VIRUS ANTIBODY (IGG) ([facility]) (07/10/2024 12:10 PM CDT) [facility] VARICELLA ZOSTER VIRUS ANTIBODY (IGG) 6.51 S/CO [facility] Comment: Signal to Cut-off S/CO Interpretation --------- [...] PM CDT Michell Burks MD SEND OUTS Fi nal Result Performing Organization Address [facility]/ZIP Co de Phone Number [facility] [address] [facility] [place] [address], [place] [phone] [facility] [address] [place] [address] * HIV 1/2 ANTIGEN/ANTIBODY FOURTH GENERATION W/RFL ([facility]) (07/10/2024 12:10 PM CDT) HIV AG/AB, 4TH GEN NON-REACT LUPE NON-REACT LUPE [facility] Comment: HIV-1 antigen and HIV-1/HIV-2 antibodies were [...] purpose. For additional information please refer to http://education.Kinetic Social/faq/TGD136 (This link is being provided for informational/ educational purposes only.) The performance of this assay has not been clinically validated in patients less than 2 years old. Blood BLOOD SPECIMEN / Unknown 07/10/2024 12:10 PM CDT 07/10/2024 12:11 PM CDT Michell Burks MD SEND OUTS Fi nal Result [facility] [address] [place] [address], [facility] [address] [place] [address] * TREPONEMA PALLIDUM (07/10/2024 12:10 PM CDT) T. PALLIDUM AB NEGATIVE NEGATIVE [facility] Comment: No antibodies to T. pallidum (the [...] PM CDT Michell Burks MD SEND OUTS Fi nal Result Performing Organization Address [facility] de Phone Number [facility] [address] [place] [address], [place] [phone] [facility] [address] [place] [address] * RUBELLA IMMUNE STATUS (07/10/2024 12:10 PM CDT) RUBELLA AB (IGG), IMMUNE STATUS 3.32 Index [facility] Comment: Index Interpretation ----- <0.90 Not consistent with immunity 0.90-0.99 Equivocal > or = 1.00 Consistent with immunity The presence of rubella IgG antibody suggests immunization or past or current infection with rubella virus. Blood BLOOD SPECIMEN / Unknown 07/10/2024 12:10 PM CDT 07/10/2024 12:11 PM CDT Michell Burks MD SEND OUTS Fi nal Result Performing Organization Address [facility] de Phone Number [facility] [address] [place] [address], [place] [phone] [facility] [address] [place] [address] * HBSAG (HBS) (07/10/2024 12:10 PM CDT) HEPATITIS B SURFACE ANTIGEN NON-REACTI VE NON-REACTI VE [facility] Comment: For additional information, please refer to http://education.eYeka.Design Clinicals/faq/SBF728 (This link is being provided for informational/ educational purposes only.) Blood BLOOD SPECIMEN / Unknown 07/10/2024 12:10 PM CDT 07/10/2024 12:11 PM CDT Michell Burks MD SEND OUTS Fi nal Result Performing Organization Address [facility]/ZIP Co de Phone Number [facility] [address] [place] [address], [place] [phone] [facility] [address] [place] [address] * URINE CULTURE (07/10/2024 12:10 PM CDT) CULTURE, URINE, ROUTINE SEE NOTE [facility] Comment: CULTURE, URINE, ROUTINE Micro Number: [id number] Test Status: Final Specimen Source: Urine, clean [...] 07/10/2024 12:11 PM CDT Michell Burks MD MICROBIOLOGY nal Result Performing Organization Address [facility] de Phone Number [place] [address] [place] [address], [facility] [address] [place] [address] * ANTI HCV (07/10/2024 12:10 PM CDT) HEPATITIS C ANTIBODY NON-REACTI VE NON-REACT LUPE [facility] Comment: HCV antibody was non-reactive. There is no laboratory evidence of HCV infection. In most cases, no further action is required. However, if recent HCV exposure is suspected, a test for HCV RNA (test code 40837) is suggested. For additional information please refer to http://education.Kinetic Social/faq/EKC69q4 (This link is being provided for informational/ educational purposes only.) Blood BLOOD SPECIMEN / Unknown 07/10/2024 12:10 PM CDT 07/10/2024 12:11 PM CDT Michell Burks MD SEND OUTS Fi nal Result [facility] [address] [place] [address], [facility] [address] [place] [address] * (ABNORMAL) CBC W PLT NO DIFF [...] 12:10 PM CDT 07/10/2024 12:11 PM CDT us Michell Burks MD HEMATOLOGY Fi nal Result [facility] [address] [place] [address], [place] [phone] [facility] [address] [place] [address] * (ABNORMAL) URINALYSIS W REFLEX MICROSCOPIC IF POSITIVE [96226.2] (07/10/2024 12:10 PM CDT) COLOR YELLOW YELLOW [...] 12:11 PM CDT Michell Burks MD URINE Fi nal Result [facility] [address] [facility], [place] [address], [place] [phone] [facility] [address] [place] [address] * (ABNORMAL) URINE POCT (07/02/2024 1:19 PM CDT) POC HCG URINE POSITIVE(A ) NEGATIVE [facility] Urine URINE SPECIMEN / Unknown 07/02/2024 1:19 PM CDT 07/02/2024 1:20 PM CDT Lindsey Valdez DO URINE Final Result [facility] [address] [place] [address], [facility] [address] [place] [address] * PROOF MACHINE OPERATOR THIN PREP PAP SCREEN IMAGED (09/12/2023 10:51 AM RAIL MAINTENANCE WORKER) Case Report Gynecologic Cytology Report Case: [id number] Authorizing Provider: Shaylee Cruz MD Collected: 09/12/2023 1051 Ordering Location: [facility] Received: 09/12/2023 1051 Clinic First Screen: Lazara Zimmer Specimen: PROOF MACHINE OPERATOR ThinPrep Vial Screening, Cervical 09/20/2023 11:09 AM RAIL MAINTENANCE WORKER [facility] INTERPRETATION/ RESULT NEGATIVE FOR INTRAEPITHELIAL LESION OR MALIGNANCY (NIL) (none) 09/20/2023 11:09 AM RAIL MAINTENANCE WORKER [facility] LAB[facility] NISM(S) Shift in sarkis suggestive of bacterial vaginosis 09/20/2023 11:09 AM RAIL MAINTENANCE WORKER [facility] SPECIMEN ADEQUACY Satisfactory for evaluation No endocervical component seen 09/20/2023 11:09 AM RAIL MAINTENANCE WORKER [facility] Date of LMP 08/10/2023 09/20/2023 11:09 AM RAIL MAINTENANCE WORKER [facility] LAB[facility] Last Pap Date First pap 09/20/2023 11:09 AM RAIL MAINTENANCE WORKER [facility] Last Pap Result First Pap/Unknown 11:09 AM RAIL MAINTENANCE WORKER [facility] EN[facility] LABORATORY Abnormal Pap or [place] Bx in last 5 years No 09/20/2023 11:09 AM RAIL MAINTENANCE WORKER [facility] Menstrual Status Regular Periods 09/20/2023 11:09 AM RAIL MAINTENANCE WORKER [facility] [place] Bx Done Today No 09/20/2023 11:09 AM RAIL MAINTENANCE WORKER [facility] Additional Information None given 09/20/2023 11:09 AM RAIL MAINTENANCE WORKER [facility] Comment: Cytology is screened at [facility] - [address], [place] [address] and [facility] - [address], [place] [address] [facility] - [address] [place] [address] [facility] - [address] [place] [address] Automated Review Successful 09/20/2023 11:09 AM [facility] Comment:Specimen processed s uccessfully by automated game farm supervisor device, ThinPrep Imaging System, [employer] Note The pap test is a screening technique, not a diagnostic procedure. It is used primarily to screen for squamous cancers and precursor lesions. Published studies have shown that it is subject to both false negative and false positive results. The pap test should not be used as the sole means to diagnose or exclude pre-malignant and malignant lesions. 09/20/2023 11:09 AM [facility] Other (Cervical) Non-Blood / Unknown 09/12/2023 10:51 AM RAIL MAINTENANCE WORKER 09/12/2023 10:51 AM RAIL MAINTENANCE WORKER us Shaylee Cruz MD PATHOLOGY/CYTOLOGY Irena disla Result [facility] [address] [place] [address], [place] * GC CHLAMYDIA TRACH PROBE (06/05/2019 12:31 PM CDT) CHLAMYDIA PROBE Negative 12:49 PM CDT [facility] TRAL LABORATORY N GONORRHOEAE PROBE Negative 06/06/2019 12:49 PM CDT [facility] TRAL LABORATORY Other URINE SPECIMEN / Unknown Non-Blood / Unknown 06/05/2019 12:31 PM CDT 06/05/2019 12:31 PM CDT Sharon TAVERA MICROBIOLOGY Final Result [facility] LABORATORY [address] [place] [address], [place] from Last 3 Months or Most Recently Relevant to Health Maintenance Insurance [facility] Advance Directives * Full Code (Latest Code Status on File) Date Activated Date Inactivated Comments 01/18/2024 8:29 AM 01/18/2024 3:24 PM Question Answer Comments Code Status Discussion: Reviewed Preferences Care Teams Svp Programmatic Tv Relationship Specialty [place] [address] [place] [address] PCP - General Family Practice 04/07/22
--- OUTSIDE RECORDS SUMMARY | 2024-09-18 10:44 | XMS_ITS | Clinical Summary ---
Author Organization [facility] [place] Address [address] [place] [address] Care Team Providers Care Pct Name Role Phone Channing Brush MD Primary Care Provider [phone] Allergies No known active allergies Medications metFORMIN [...] Specimen Description Cervix 05/27/2017 1:03 AM CDT [facility] Chlamydia Trachomatis PCR Negative NEG^Negat clara 05/28/2017 1:38 PM CDT [facility] Comment: Negative for C. trachomatis rRNA by clinical education academic coordinator mediated amplification. A negative result by clinical education academic coordinator mediated amplification does not preclude the presence of C. trachomatis infection because results are dependent on proper and adequate collection, absence of inhibitors, and sufficient rRNA to be detected. Cervical swab (specimen) 05/27/2017 12:50 AM CDT 05/27/2017 1:03 AM CDT us Bre Negron MD LAB - MICRO GENERAL ORDERABLES Final Result [facility] [address] [place] [address], [facility] [address] [place] [address], [facility] [phone] from Last 3 Months or Most Recently Relevant to Health Maintenance Insurance [facility] Advance Directives For more information, please contact: [phone] * Full Code (Latest Code Status on File) Date Activated Date Inactivated Comments 09/29/2023 4:31 PM 09/30/2023 4:43 PM All basic and advanced life-sustaining interventions are performed as appropriate Question Answer Comments Code status determined by: Discussion with patie nt/ legal decision maker * Full Code Date Activated Date Inactivated Comments 02/15/2018 9:28 PM 02/16/2018 4:09 PM Care Teams Pct Relationship Specialty [place] [address] [place] [address] PCP - General 10/26/22
--- OUTSIDE RECORDS SUMMARY | 2024-09-18 10:45 | XMS_ITS | Encounter Summary ---
Author Organization [place] Address [address] [place] [address] Care Team Providers Care Flash Oven Operator Name Role Phone Ness Conroy MD Primary Care Provider [phone] Channing Brush MD Primary Care Provider [phone] Reason for Visit * Reason Onset Date Comments MH/CD Inpatient 02/15/2018 Encounter Details Date Type Department Care Team ([facility] st Contact Info) Description 02/15/2018 Telephone [facility] Behavioral Health Intake [address] [place] [id number] Generic, Behavioral Intake, MD MH/CD Inpatient Social [...] clinical information); pt was seen by DEC rental agent at school today, and referred to ED [...] given to ED, page sent to ED discharge rn with admit info 4:46pm * Telephone Encounter - Tori Miller RN - 02/15/2018 1:57 PM CDT S: Caprice with [facility] ([phone]) who saw pt at [facility] calling: B: Pt being sent via ambulance to [place] for further evaluation. Pt endorses SI with [...] VM had to be left. (Mom)Ruth Ann aPbon [phone] R: Pt to be assessed in ED for medical clearance only - no need to be assessed by DEC assessors, only needs medical clearance documented in this encounter Plan of Treatment Not on file documented as of this encounter Visit Diagnoses Not on filedocumented in this encounter Care Teams Flash Oven Operator Relationship Specialty Start Date End Date Ness Conroy MD PCP - General Pediatrics 05/26/17 10/25/22 [place] [address] [place] [address] PCP - General 10/26/22 documented as of this encounter
--- OUTSIDE RECORDS SUMMARY | 2024-09-18 10:45 | XMS_ITS | Encounter Summary ---
Author Organization [place] Address [address] [place] [address] Care Team Providers Care Fish Conservationist Name Role Phone Channing Brush MD Primary Care Provider [phone] Encounter Details Date Type Department Care Team (Latest Contact Info) Description 10/26/2022 Travel Social History Tobacco Use Types Packs/Day Years [...] Exposure Response Date Recorded In the last 10 days, have yo u been in contact with someone who was confirmed or suspected to have Coronavirus/COVID-19? No / Unsure 10/26/2022 7:27 AM AUTOMOTIVE CUSTOMER EXPERIENCE ADVISOR documented as of this encounter Plan of Treatment Not on file documented as of this encounter Visit Diagnoses Not on filedocumented in this encounter Care Teams Fish Conservationist Relationship Specialty [place] [address] [place] [address] PCP - General 10/26/22 documented as of this encounter
--- OUTSIDE RECORDS SUMMARY | 2024-09-18 10:45 | XMS_ITS | Encounter Summary ---
Author Organization [place] Address [address] [place] [address] Care Team Providers Care Nitroglycerin Nitrator Operator Batch Name Role Phone Ness Conroy MD Primary Care Provider [phone] Reason for Visit * Reason Comments Shortness of Breath Encounter Details Date Type Department Care Team (Late st Contact Info) Description 07/04/2021 3:58 PM CDT - 07/04/2021 7:20 PM CDT Emergency [facility] Emergency Dept [address] [place] [phone] Piter Painting MD [facility] [address] [place], [place] [id number] Chest pain, unspecified type; Shortness of breath Discharge Disposition: Home or Self Care Social History Tobacco Use Types Packs/Day Years [...] PM CDT documented as of this encounter Last Filed Vital Signs Vital Sign Reading Time Taken Comments Blood Pressure 121/66 07/04/2021 7:00 PM CDT Pulse 79 07/04/2021 6:00 PM CDT Temperature 37.2 C (99 F) 07/04/2021 1:45 PM CDT Respiratory Rate 20 07/04/2021 7:00 PM CDT Oxygen Saturation 98% 07/04/2021 7:00 PM CDT Inhaled Oxygen Concentration - - Weight - - Height - - Body Mass Index - - documented in this encounter Discharge Instructions * Discharge Instructions* Piter Painting MD - 07/04/2021 6:40 PM CDT Discharge Instructions Chest Pain You have been seen today for chest pain or discomfort. At this time, your provider has found no signs that your chest pain is due to a serious or life- threatening condition, (or you have declined more testing and/or admission to the hospital). However, sometimes there is a serious problem that doesnot show up right away. Your evaluation today may not be complete and you may need further testing and evaluation. Generally, every Emergency Department visit should have a follow-up clinic visit with either a primary or a specialty clinic/provider. Please follow-up as instructed by your emergency provider today. Return to the Emergency Department if: Your chest pain changes, gets worse, starts to happen more often, or comes with less activity. You are newly short of breath. You get very weak or tired. You pass out or faint. You have any new symptoms, like fever, cough, numb legs, or you cough up blood. You have anything else that worries you. Until you follow-up with your regular provider, please do the following: If you have questions, contact your regular provider. Follow-up with your regular provider/clinic as directed; this is very important. If you were given a prescription for medicine here today, be sure to read all of the information (including the package insert) that comes with your prescription. This will include important information about the medicine, its side effects, and any warnings that you need to know about. The pharmacist who fills the prescription can provide more information and answer questions you may have about the medicine. If you have questions or concerns that the pharmacist cannot address, please call or return to the Emergency Department. Remember that you can always come back to the Emergency Department if you are not able to see your regular provider in the amount of time listed above, if you get any new symptoms, or if there is anything that worries you. * Attachments The following attachments cannot be sent through Care Everywhere. * Pleurisy (Swedish) documented in this encounter Medications at Time of Discharge dexamethasone (DECADRON) 4 MG tablet Take 2 tablets (8 mg) by mouth once for 1 dose 2 tablet 03/30/2021 09/29/2023 LANsoprazole (PREVACID) 30 MG CR capsule Take 30 mg by mouth daily 09/29/2023 documented as of this encounter ED Notes * Yuki Muñoz RN - 07/04/2021 1:43 PM CDT Patient diagnosed with Pneumonia about 1 month ago. Was prescribed antibiotics and finished the entire dosage. Patient states her shortness of breath has been getting progressively worse. States SOB is worse when she is laying down. Patient also endorses sharp chest pain, especially on the left side. Taking a deep breath makes pain worse. ABCs intact in triage. * Piter Painting MD - 07/04/2021 1:08 PM CDT History Chief Complaint: Shortness of Breath HPI Lisa Willis is a 20 year old female who presents with mother for evaluation of chest discomfortand shortness of breath over the past month. Patient states that when symptoms started, she had a cough and was seen by urgent care and diagnosed with pneumonia and completed a course of antibiotics.Since then she reports ongoing symptoms. Specifically in the past week, she notices worsening pleuritic chest discomfort. Her cough has largely resolved. She does have underlying constant central chest achiness as well. No clear modifying factors aside from breathing. No fever or vomiting or diarrhea. Patient received [employer] Covid vaccine few months ago. She has not been formally diagnosed with COVID-19 in the past. She denies being tested for COVID-19 since her symptoms started.She denies history of blood clots or heart disease or leg swelling or hormone use. Allergies: No Known Allergies Medications: methylcellulose (CITRUCEL) powder dexamethasone (DECADRON) 4 MG tablet LANsoprazole (PREVACID) 30 MG CR capsule Past Medical History: No past medical history on file. Patient Active Problem List Diagnosis Date Noted ??? Suicidal ideation 02/15/2018 Priority: Medium Past Surgical History: No past surgical history on file. Family History: family history is not on file. Social History: reports that she has never smoked. She has never used smokeless tobacco. She reports that she does not drink alcohol and does not use drugs. PCP: Ness Conroy A Review of Systems A 10 point ROS was obtained and negative except as noted here and in HPI Physical Exam Patient Vitals for the past 24 hrs: BP Temp Pulse Resp SpO2 07/04/21 1900 121/66 -- -- 20 98 % 07/04/21 1800 -- -- 79 20 98 % 07/04/21 1745 109/66 -- 79 19 100 % 07/04/21 1730 102/71 -- 77 16 100 % 07/04/21 1715 113/57 -- 71 17 100 % 07/04/21 1700 -- -- -- -- 99 % 07/04/21 1645 108/73 -- -- -- 99 % 07/04/21 1345 134/82 99 ??F (37.2 ??C) 86 20 99 % Physical Exam VS: Reviewed per above HENT: normal speech EYES: sclera anicteric CV: Rate as noted, regular rhythm. RESP: Effort normal. Breath sounds are normal bilaterally. NEURO: Alert, moving all extremities MSK: No deformity of the extremities. No lower extremity edema. SKIN: Warm and dry Emergency Department Course ECG (13:52:30): Rate 73 bpm. QT/QTc 82. P-R-T axes 8 46 43. Interpretation: Normal sinus rhythm with sinus arrhythmia Normal ECG Agree with computer interpretation. Interpreted at 1402 by Piter Painting MD. Imaging: XR Chest 2 Views Final Result IMPRESSION: Negative chest. Laboratory: CBC: WBC 12.2 (H), HGB 13.1, PLT 430 BMP: chloride: 111 (H) o/w WNL (Creatinine 0.78) Troponin (Collected 1457): <0.015 D dimer: <0.27 BNP: 32 iStat HCG: <5.0 Emergency Department Course: Past medical records, nursing notes, and vitals reviewed. I performed an exam of the patient and obtained history, as documented above. I rechecked the patient. Findings and plan explained to the Patient and grandmother. Patient was discharged. Impression & Plan Medical Decision Making: Lisa Willis presented to the ER with chest pain. CXR did not reveal wide mediastinum and natureof pain not c/w aortic dissection. No radiographic evidence of pneumothorax nor PNA either. Hx and lack of pneumomediastinum on CXR make boerhaave's syndrome unlikely. Based on low to medium pretest probability and negative D-dimer, PE was also deemed unlikely. ECG did not show signs of STEMI nor other specific signs of ischemia. Troponin testing was negative, thus no signs of acute SD. Hx is also not consistent with unstable angina. Nature of pain in conjunction with reassuring ECG and negative troponin makes pericarditis and myocarditis unlikely as well. Encouraged close primary care follow-up. Return precautions discussed prior to discharge. Diagnosis: ICD-10-CM 1. Chest pain, unspecified type R07.9 2. Shortness of breath R06.02 07/04/2021 Piter Painting MD Lindenbaum, Elan, MD 07/04/21 2247 documented in this encounter Plan of Treatment Not on file documented as of this encounter Procedures Procedure Name Priority Date/Time Associated Diagnosis Comments XR CHEST 2 VIEWS STAT 07/04/2021 6:11 PM CDT D DIMER QUANTITATIVE STAT 07/04/2021 5:12 PM CDT ISTAT HCG QUANTITATIVE POCT STAT 07/04/2021 5:11 PM CDT CBC WITH PLATELETS AND DIFFERENTIAL STAT 07/04/2021 2:57 PM CDT CBC WITH PLATELETS & DIFFERENTIAL STAT 07/04/2021 2:57 PM CDT TROPONIN I STAT 07/04/2021 2:57 PM CDT NT PROBNP INPATIENT STAT 07/04/2021 2 :57 PM CDT BASIC METABOLIC PANEL STAT 07/04/2021 2:57 PM CDT EKG 12-LEAD, TRACING ONLY STAT 07/04/2021 1:52 PM CDT documented in this encounter Results * XR Chest 2 Views (07/04/2021 6:11 PM CDT) Anatomical Region Laterality Modality Chest Digital Radiogra phy 07/04/2021 6:04 PM CDT Impressions 07/04/2021 6:28 PM CDT IMPRESSION: Negative chest. Narrative 07/04/2021 6:28 PM CDT EXAM: XR CHEST 2 VW LOCATION: [facility] DATE/TIME: 07/04/2021 6:04 PM INDICATION: Chest pain. COMPARISON: Chest x-rays dated 06/09/2021. Procedure Note Lux Bull MD - 07/04/2021 EXAM: XR CHEST 2 VW LOCATION: [facility] DATE/TIME: 07/04/2021 6:04 PM INDICATION: Chest pain. COMPARISON: Chest x-rays dated 06/09/2021. IMPRESSION: Negative chest. Piter Painting MD IMG DIAGNOSTIC IMAGING ORDERA BLES Final Result * D dimer quantitative (07/04/2021 5:12 PM CDT) D-Dimer Quantitative <0.27 0.00 - 0.50 ug/mL FEU 07/04/2021 5:40 PM CDT [facility] Blood STRUCTURE OF LEFT HAND / Unknown Venipuncture / Unknown 07/04/2021 5:12 PM CDT 07/04/2021 5:17 PM CDT Narrative [facility] - 07/04/2021 5:40 PM CDT This D-dimer assay is intended for use in conjunction with a clinical pretest probability assessment model to exclude pulmonary embolism (PE) and deep venous thrombosis (DVT) in outpatients suspected of PE or DVT. The cut-off value is 0.50 ug/mL FEU. Piter Painting MD LAB - BLOOD ORDERABLES Final Result LABORATORY [facility] Care Lab [address] Lab (1st floor, no room number) [place] [address], [facility] [phone] * iStat HCG Quantitative , POCT (07/04/2021 5:11 PM CDT) HCG QUANTITATIVE POCT <5.0 0.0 - 5.0 IU/L 07/04/2021 5:24 PM CDT LABORATORY POC Blood BLOOD SPECIMEN / Unknown 07/04/2021 5:11 PM CDT 07/04/2021 5:24 PM CDT Piter Painting MD LAB - BEAKER POCT Final Resul t Performing Organization Address City/[facility]/ZIP Co de Phone Number LABORATORY POC [facility] Care Lab [address] Lab (1st floor, no room number) [place] [address], [facility] [phone] * BNP (07/04/2021 2:57 PM CDT) N terminal Pro BNP Inpatient 32 0 - 450 pg/mL 07/04/2021 4:46 PM CDT LABORATORY Comment: Reference range shown and results flagged as abnormal are suggested inpatient cut points for confirming diagnosis if CHF in an acute setting. Establishing a baseline value for each individual patient is useful for follow-up. An inpatient or emergency department NT-proPBNP <300 pg/mL effectively rules out acute CHF, with 99% negative predictive value. The outpatient non-acute reference range for ruling out CHF is: 0-125 pg/mL (age 18 to less than 75) 0-450 pg/mL (age 75 yrs and older) Blood STRUCTURE OF RIGHT UPPER LIMB / Unknown Venipuncture / Unknown 07/04/2021 2:57 PM CDT 07/04/2021 3:03 PM CDT Piter Painting MD LAB - BLOOD ORDERABLES Final Result [facility] [address] [facility], no room number) [place] [phone], [facility] [phone] * Troponin I (07/04/2021 2:57 PM CDT) [facility] Troponin I <0.015 0.000 - 0.045 ug/L 07/04/2021 4:46 PM CDT LABORATORY Comment:The 99th percentile for upper reference range is 0.045ug/L. Troponin values in the range of 0.045 - 0.120 ug/L may be associated with risks of adverse clinical events. Blood STRUCTURE OF RIGHT UPPER LIMB / Unknown Venipuncture / Unknown 07/04/2021 2:57 PM CDT 07/04/2021 3:03 PM CDT Piter Painting MD LAB - BLOOD ORDERABLES Final Result Performing Organization Address [facility]/ZIP Co de Phone Number [facility] Care [facility] [address] [facility] Lab (1st floor, no room number) [place] [address], [facility] [phone] * (ABNORMAL) CBC with platelets and differential (07/04/2021 2:57 PM CDT) [facility] WBC Count 12.2(H) 4.0 - 11.0 10e3/uL 07/04/2021 3:05 PM CDT [facility] RBC Count 4.81 3.80 - 5.20 10e6/uL 07/04/2021 3:05 PM CDT [facility] Hemoglobin 13.1 11.7 - 15.7 g/dL 07/04/2021 3:05 PM CDT [facility] Hematocrit 41.1 35.0 - 47.0 % 07/04/2021 3:05 PM CDT [facility] MCV 85 78 - 100 fL 07/04/2021 3:05 PM CDT [facility] MCH 27.2 26.5 - 33.0 pg 07/04/2021 3:05 PM CDT [facility] MCHC 31.9 31.5 - 36.5 g/dL 07/04/2021 3:05 PM CDT [facility] RDW 14.4 10.0 - 15.0 % 07/04/2021 3:05 PM CDT [facility] Platelet Count 430 150 - 450 10e3/uL 07/04/2021 3:05 PM CDT [facility] % Neutrophils 61 % 07/04/2021 3:05 PM CDT [facility] % Lymphocytes 29 % 07/04/2021 3:05 PM CDT [facility] % Monocytes 7 % 07/04/2021 3:05 PM CDT [facility] % Eosinophils 2 % 07/04/2021 3:05 PM CDT [facility] % Basophils 1 % 07/04/2021 3:05 PM CDT [facility] % Immature Granulocytes 0 % 07/04/2021 3:05 PM CDT [facility] NRBCs per 100 WBC 0 <1 /100 021 3:05 PM CDT [facility] Absolute Neutrophils 7.5 1.6 - 8.3 10e3/uL 07/04/2021 3:05 PM CDT [facility] Absolute Lymphocytes 3.5 0.8 - 5.3 10e3/uL 07/04/2021 3:05 PM CDT [facility] Absolute Monocytes 0.9 0.0 - 1.3 10e3/uL 07/04/2021 3:05 PM CDT [facility] Absolute Eosinophils 0.2 0.0 - 0.7 10e3/uL 07/04/2021 3:05 PM CDT [facility] Absolute Basophils 0.1 0.0 - 0.2 10e3/uL 07/04/2021 3:05 PM CDT [facility] Absolute Immature Granulocytes 0.0 <=0.0 10e3/uL 07/04/2021 3:05 PM CDT [facility] Absolute NRBCs 0.0 10e3/uL 07/04/2021 3:05 PM CDT [facility] Blood STRUCTURE OF RIGHT UPPER LIMB / Unknown Venipuncture / Unknown 07/04/2021 2:57 PM CDT 07/04/2021 3:03 PM CDT us Piter Painting MD LAB - BLOOD ORDERABLES Final Result [facility] Acute Care Lab [address] Lab (1st floor, no room number) [place] [address], [facility] [phone] * (ABNORMAL) Basic metabolic panel (BMP) (07/04/2021 2:57 PM CDT) [facility] Signature Sodium 136 133 - 144 mmol/L 07/04/2021 3:22 PM CDT LABORATORY Potassium 4.2 3.4 - 5.3 mmol/L 07/04/2021 3:22 PM CDT LABORATORY Chloride 111(H) 96 - 110 mmol/L 07/04/2021 3:22 PM CDT LABORATORY Carbon Dioxide (CO2) 20 20 - 32 mmol/L 07/04/2021 3:22 PM CDT LABORATORY Anion Gap 5 3 - 14 mmol/L 07/04/2021 3:22 PM CDT LABORATORY Urea Nitrogen 12 7 - 30 mg/dL 07/04/2021 3:22 PM CDT LABORATORY Creatinine 0.78 0.50 - 1.00 mg/dL 07/04/2021 3:22 PM CDT LABORATORY Calcium 9.0 8.5 - 10.1 mg/dL 07/04/2021 3:22 PM CDT LABORATORY Glucose 80 70 - 99 mg/dL 07/04/2021 3:22 PM CDT LABORATORY GFR Estimate >90 >60 mL/min/1.7 3m2 07/04/2021 3:22 PM CDT LABORATORY Comment:As of April 18, 2021, eGFR is calculated by the CKD-EPI creatinine equation, without race adjustment. eGFR can be influenced by muscle mass, exercise, and diet. The reported eGFR is an estimation only and is only applicable if the renal function is stable. Blood STRUCTURE OF RIGHT UPPER LIMB / Unknown Venipuncture / Unknown 07/04/2021 2:57 PM CDT 07/04/2021 3:03 PM CDT Piter Painting MD LAB - BLOOD ORDERABLES Final Result LABORATORY [facility] Acute Care Lab [address] Lab (1st floor, no room number) [place] [address], [facility] [phone] * EKG 12 lead (07/04/2021 1:52 PM CDT) Systolic Blood Pressure mmHg RADIOLOGY RESULTS Diastolic Blood Pressure mmHg RADIOLOGY RESULTS Ventricular Rate 73 BPM RAD IOLOGY RESULTS Atrial Rate 73 BPM RADIOLOG Y RESULTS WY Interval 140 ms RADIOLOG Y RESULTS QRS Duration 82 ms RADIOLO GY RESULTS QT 344 ms RADIOLOGY RESULTS QTc 378 ms RADIOLOGY RESULTS P Eva 8 degrees RADIOLOGY RESULTS R AXIS 46 degrees RADIOLOGY RESULTS T Eva 43 degrees RADIOLOGY RESULTS Interpretation ECG Sinus rhythm with sinus arrhythmia Normal ECG No previous ECGs available RADIOLOGY RESULTS 07/04/2021 1:52 PM CDT 07/04/2021 9:26 PM CDT us Star Arroyo MD ECG ORDERABLES Final Res ult Performing Organization Address [facility] Co de Phone Number RADIOLOGY RESULTS documented in this encounter Visit Diagnoses Diagnosis Chest pain, unspecified type Shortness of breath documented in this encounter Care Teams Nitroglycerin Nitrator Operator Batch Relationship Specialty Start Date End Date Ness Conroy MD PCP - General Pediatrics 05/26/17 10/25/22 documented as of this encounter
--- OUTSIDE RECORDS SUMMARY | 2024-09-18 10:45 | XMS_ITS | Encounter Summary ---
Author Organization [place] Address [address] [place] [address] Care Team Providers Care Sprayer Operator Name Role Phone Ness Conroy MD Primary Care Provider [phone] Encounter Details Date Type Department Care Team (Latest Contact Info) Description 05/14/2022 Travel Social History Tobacco Use Types Packs/Day [...] suspected to have Coronavirus/COVID-19? No / Unsure 05/14/2022 1:37 PM CDT documented as of this encounter Plan of Treatment Not on file documented as of this encounter Visit Diagnoses Not on filedocumented in this encounter Care Teams Sprayer Operator Relationship Specialty Start Date End Date Ness Conroy MD PCP - General Pediatrics 05/26/17 10/25/22 documented as of this encounter
--- OUTSIDE RECORDS SUMMARY | 2024-09-18 10:45 | XMS_ITS | Encounter Summary ---
Author Organization [facility] Address [address] [place] [address] Care Team Providers Care Statistical Clerk Name Role Phone Ness Conroy MD Primary Care Provider [phone] Reason for Visit * Reason Comments Abdominal Pain Melena Encounter Details Date Type Department Care Team (Late st Contact Info) Description 05/14/2022 2:49 PM CDT - 05/14/2022 7:15 PM CDT Emergency [facility] Emergency Dept [address] [place] [address] Jose Barnett MD [facility] [address] [place] [address] Abdominal pain, epigastric; Diarrhea of presumed infectious origin; Hematochezia Discharge Disposition: Home or Self Care Social [...] Sign Reading Time Taken Comments Blood Pressure 111/76 05/14/2022 6:30 PM CDT Pulse 63 05/14/2022 6:30 PM CDT Temperature 36.7 C (98 F) 05/14/2022 1:11 PM CDT Respiratory Rate 18 05/14/2022 1:11 PM CDT Oxygen Saturation 99% 05/14/2022 7:00 PM CDT Inhaled Oxygen Concentration - - Weight - - Height - - Body Mass Index - - documented in this encounter Discharge Instructions * Discharge Instructions* Jose Barnett MD - 05/14/2022 6:48 PM CDT Discharge Instructions Abdominal Pain Abdominal pain can be caused by many things. Your evaluation today does not show the exact cause for your pain. Your doctor today has decided that it is unlikely your pain is due to a life threatening problem, or a problem requiring surgery or hospital admission. Sometimes those problems cannot be found right away, so it is very important that you follow up as directed. Sometimes only the changes which occur over time allow the cause of your pain to be found. Return to the Emergency Department for a recheck in 8-12 hours if your pain continues. If your paingets worse, changes in location, or feels different, return to the Emergency Department right away. ADULTS: Return to the Emergency Department right away if: You get an oral temperature above 102oF or as directed by your doctor. You have blood in your stools (bright red or black, tarry stools). You keep throwing up or can???t drink liquids. You see blood when you throw up. You can???t have a bowel movement or you can???t pass gas. Your stomach gets bloated or bigger. Your skin or the whites of your eyes look yellow. You faint. You have bloody, frequent or painful urination. You have new symptoms or anything that worries you. CHILDREN: Return to the Emergency Department right away if your child has any of the above-listed symptoms or the following: Pushes your hand away or screams/cries when his/her belly is touched. You notice your child is very fussy or weak. Your child is very tired and is too tired to eat or drink. Your child is dehydrated. Signs of dehydration can be: Your infant has had no wet diapers in 4-5 hours. Your older child has not passed urine in 6-8 hours. Your or child starts to have dry mouth and lips, or no saliva or tears. WOMEN: Return to the Emergency Department right away if you have any of the above-listed symptoms or the following: You have bleeding, leaking fluid or passing tissue from the vagina. You have worse pain or cramping, or pain in your shoulder or back. You have vomiting that will not stop. You have painful or bloody urination. You have a temperature of 100oF or more. Your baby is not moving as much as usual. You faint. You get a bad headache with or without eye problems and abdominal pain. You have a convulsion or seizure. You have unusual discharge from your vagina and abdominal pain. Abdominal pain is pretty common during . Your pain may or may not be related to your . You should follow-up closely with your OB doctor so they can evaluate you and your baby. Untilyou follow-up with your regular doctor, do the following: Avoid sex and do not put anything in your vagina. Drink clear fluids. Only take medications approved by your doctor. MORE INFORMATION: Appendicitis: A possible cause of abdominal pain in any person who still has their appendix is acute appendicitis. Appendicitis is often hard to diagnose. Testing does not always rule out early appendicitis or other causes of abdominal pain. Close follow-up with your doctor and re-evaluations may be needed to figure out the reason for your abdominal pain. Follow-up: It is very important that you make an appointment with your clinic and go to the appointment. If you do not follow-up with your primary doctor, it may result in missing an important development which could result in permanent injury or disability and/or lasting pain. If there is any problem keeping your appointment, call your doctor or return to the Emergency Department. Medications: Take your medications as directed by your doctor today. Before using [id number] medications, ask your doctor and make sure to take the medications as directed. If you have any questions about medications, ask your doctor. Diet: Resume your normal diet as much as possible, but do not eat fried, fatty or spicy foods whileyou have pain. Do not drink alcohol or have caffeine. Do not smoke tobacco. Probiotics: If you have been given an antibiotic, you may want to also take a probiotic pill or eatyogurt with live cultures. Probiotics have good bacteria to help your intestines stay healthy. Studies have shown that probiotics help prevent diarrhea and other intestine problems (including C. diff infection) when you take antibiotics. You can buy these without a prescription in the pharmacy section of the store. If you were given a prescription for [...] call or return to the Emergency Department. Opioid Medication Information Pain medications are among the most commonly prescribed medicines, so we are including this information for all our patients. If you did not receive pain medication or get a prescription for pain medicine, you can ignore it. You may have been given a prescription for an opioid (narcotic) pain medicine and/or have received a pain medicine while here in the Emergency Department. These medicines can make you drowsy or impaired. You must not drive, operate dangerous equipment, or engage in any other dangerous activities while taking these medications. If you drive while taking these medications, you could be arrested forDUI, or driving under the influence. Do not drink any alcohol while you are taking these medications. Opioid pain medications can cause addiction. If you have a history of chemical dependency of any type, you are at a higher risk of becoming addicted to pain medications. Only take these prescribed medications to treat your pain when all other options have been tried. Take it for as short a time andas few doses as possible. Store your pain pills in a secure place, as they are frequently stolen and provide a dangerous opportunity for children or visitors in your house to start abusing these powerful medications. We will not replace any lost or stolen medicine. As soon as your pain is better, you should flush all your remaining medication. Many prescription pain medications contain Tylenol?? (acetaminophen), including Vicodin??, Tylenol #3??, [place]??, Lortab??, and Percocet??. You should not take any extra pills of Tylenol?? if you areusing these prescription medications or you can get very sick. Do not ever take more than 3000 mg of acetaminophen in any 24 hour period. All opioids tend to cause constipation. Drink plenty of water and eat foods that have a lot of fiber, such as fruits, vegetables, prune juice, apple juice and high fiber cereal. Take a laxative if you don???t move your bowels at least every other day. Miralax??, Milk of Magnesia, Colace??, or Senna?? can be used to keep you regular. Remember that you can always come back to the Emergency Department if you are not able to see your regular doctor in the amount of time listed above, if you get any new symptoms, or if there is anything that worries you. documented in this encounter Medications at Time of Discharge ondansetron (ZOFRAN ODT) 4 MG ODT tab Take 1 tablet (4 mg) by mouth every 8 hours as needed for nausea 10 tablet 05/14/2022 05/17/2022 dexamethasone (DECADRON) 4 MG tablet Take 2 tablets (8 mg) by mouth once for 1 dose 2 tablet 03/30/2021 09/29/2023 hyoscyamine (LEVSIN) 0.125 MG tablet Take 1 tablet (125 mcg) by mouth every 4 hours as needed for cramping 15 tablet 05/14/2022 09/29/2023 LANsoprazole (PREVACID) 30 MG CR capsule Take 30 mg by mouth daily 09/29/2023 documented as of this encounter ED Notes * Tori Pantoja RN - 05/14/2022 1:13 PM CDT Pt arrives with c/o abdominal pain/cramping for 8-9 days and blood in stool. Pt reports stools are either diarrhea or long and skinny, blood in stool is a mix of dark red and light red. Pt also endorses nausea. Triage Assessment Row Name 05/14/22 1312 Triage Assessment (Adult) Airway WDL WDL Respiratory WDL Respiratory WDL WDL Skin Circulation/Temperature WDL Skin Circulation/Temperature WDL WDL Cardiac WDL Cardiac WDL WDL Peripheral/Neurovascular WDL Peripheral Neurovascular WDL WDL Cognitive/Neuro/Behavioral WDL Cognitive/Neuro/Behavioral WDL WDL * Jose Barnett MD - 05/14/2022 12:59 PM CDT History Chief Complaint: Abdominal Pain and Melena HPI Lisa Willis is a 21 year old female who presents with just over a week of nausea. At the time of the illness she denied any travel prior to this antibiotics or sick contacts said her stool was normal at that time. She has noted that when she has a bowel movement she gets lower abdominal pain cramping has had chills but no fever more recently. Says her last 3 days she has noted that her stool had first become intermittently loose and small and thin and snake like. She is noted been red in color is not stain the water there is been over clots that is not black tarry or sticky. She has had some chronic epigastric abdominal pain last week but the lower abdominal pain only comes when she hasa bowel movement. The patient says that she does not have a period for 2 months. Review of Systems 10 point review of systems all negative except as in HPI Allergies: No Known Allergies Medications: hyoscyamine (LEVSIN) 0.125 MG tablet ondansetron (ZOFRAN ODT) 4 MG ODT tab dexamethasone (DECADRON) 4 MG tablet LANsoprazole (PREVACID) 30 MG CR capsule Past Medical History: No history of previous blood in the stool No past medical history on file. Patient Active Problem List Diagnosis Date Noted ??? Suicidal ideation 02/15/2018 Priority: Medium Past Surgical History: No previous colonoscopy Family History: No family history on file. Social History: Ness Conroy The patient presents to the ED with her boyfriend Physical Exam Patient Vitals for the past 24 hrs: BP Temp Temp src Pulse Resp SpO2 05/14/22 1900 -- -- -- -- -- 99 % 05/14/22 1845 -- -- -- -- -- 99 % 05/14/22 1830 111/76 -- -- 63 -- 99 % 05/14/22 1800 115/73 -- -- 68 -- 99 % 05/14/22 1730 113/63 -- -- 69 -- 98 % 05/14/22 1700 115/73 -- -- 76 -- 99 % 05/14/22 1539 111/70 -- -- 71 -- 100 % 05/14/22 1311 127/79 98 ??F (36.7 ??C) Temporal 69 18 99 % Physical Exam General: The patient is alert, in no respiratory distress. HENT: Mucous membranes moist. Cardiovascular: Regular rate and rhythm. Good pulses in all four extremities. Normal capillary refill and skin turgor. Respiratory: Lungs are clear. No nasal flaring. No retractions. No wheezing, no crackles. Gastrointestinal: Abdomen soft. No guarding, no rebound. No palpable hernias. No abdominal tenderness Musculoskeletal: No gross deformity. Skin: No rashes or petechiae. Neurologic: The patient is alert and oriented x3. GCS 15. Follows commands with clear and appropriate speech. Gives appropriate answers. Good strength in all extremities. No gross neurologic deficit.Gross sensation intact. Lymphatic: No cervical adenopathy. No lower extremity swelling. Psychiatric: The patient is non-tearful. Emergency Department Course Laboratory: Labs Ordered and Resulted from Time of ED Arrival to Time of ED Departure COMPREHENSIVE METABOLIC PANEL - Abnormal Result Value Sodium 136 Potassium 4.2 Creatinine 0.71 Urea Nitrogen 13.9 Chloride 103 Carbon Dioxide (CO2) 24 Anion Gap 9 Glucose 83 Calcium 8.8 Protein Total 7.8 Albumin 4.4 Bilirubin Total 0.4 Alkaline Phosphatase 145 (*) AST 20 ALT 20 GFR Estimate >90 ROUTINE UA WITH MICROSCOPIC - Abnormal Color Urine Light Yellow Appearance Urine Clear Glucose Urine Negative Bilirubin Urine Negative Ketones Urine Negative Specific [place] Urine 1.026 Blood Urine Negative pH Urine 5.0 Protein Albumin Urine Negative Urobilinogen Urine Normal Nitrite Urine Negative Leukocyte Esterase Urine Negative RBC Urine <1 WBC Urine 1 Squamous Epithelials Urine 5 (*) CBC WITH PLATELETS AND DIFFERENTIAL - Abnormal WBC Count 10.6 RBC Count 4.96 Hemoglobin 13.5 Hematocrit 43.1 MCV 87 MCH 27.2 MCHC 31.3 (*) RDW 15.4 (*) Platelet Count 415 % Neutrophils 61 % Lymphocytes 29 % Monocytes 7 % Eosinophils 1 % Basophils 1 % Immature Granulocytes 1 NRBCs per 100 WBC 0 Absolute Neutrophils 6.6 Absolute Lymphocytes 3.0 Absolute Monocytes 0.7 Absolute Eosinophils 0.1 Absolute Basophils 0.1 Absolute Immature Granulocytes 0.1 Absolute NRBCs 0.0 INR - Normal INR 0.98 PARTIAL THROMBOPLASTIN TIME - Normal aPTT 28 HCG QUANTITATIVE - Normal hCG Quantitative <1 HCG QUALITATIVE URINE - Normal hCG Urine Qualitative Negative Procedures: Emergency Department Course: Reviewed: I reviewed nursing notes, vitals and past medical history Assessments: I obtained history and examined the patient as noted above. I rechecked the patient and explained findings. Consults: Interventions: Medications - No data to display Disposition: The patient was discharged to home. Impression & Plan Medical Decision Making: The patient has a quite benign abdominal exam in reading her history it sounded like she had blood in her stool for the last 8 to 9 days however on further questioning she started to have nausea thennoted some intermittent diarrhea with some thinner stool that was red in color. It does not sound like it had sustained the water in the toilet bowl. Her hemoglobin here is adequate. I question about risk factors for a bacterial colitis such as travel antibiotics or sick contacts she does not haveany of these. I did discuss imaging with her to look for diverticulitis or other cause but felt that is unlikely we held on that due to the risk of radiation. The patient's labs are reassuring she did not require pain medication and was discharged home in good condition to close outpatient follow-up. I did stress if she was to worsen have lightheadedness increasing pain or other symptoms to return. Covid-19 Lisa Willis was evaluated during a global COVID-19 pandemic, which necessitated consideration that the patient might be at risk for infection with the SARS-CoV-2 virus that causes COVID-19. Applicable protocols for evaluation were followed during the patient's care. COVID-19 was considered as part of the patient's evaluation. Diagnosis: ICD-10-CM 1. Abdominal pain, epigastric R10.13 2. Diarrhea of presumed infectious origin R19.7 3. Hematochezia K92.1 Discharge Medications: Discharge Medication List as of 05/14/2022 7:00 PM START taking these medications Details hyoscyamine (LEVSIN) 0.125 MG tablet Take 1 tablet (125 mcg) by mouth every 4 hours as needed for cramping, Disp-15 tablet, R-0, Local Print Jose Barnett MD 05/14/22 2418 documented in this encounter Plan of Treatment Not on file documented as of this encounter Procedures Procedure Name Priority Date/Time Associated Diagnosis Comments HCG QUALITATIVE URINE STAT 05/14/2022 4:59 PM CDT ROUTINE UA WITH MICROSCOPIC STAT 05/14/2022 4:59 PM CDT CBC WITH PLATELETS AND DIFFERENTIAL STAT 05/14/2022 4:38 PM CDT CBC WITH PLATELETS & DIFFERENTIAL STAT 05/14/2022 4:38 PM CDT INR STAT 05/14/2022 4:38 PM CDT PARTIAL THROMBOPLASTIN TIME STAT 05/14/2022 4:38 PM CDT HCG QUANTITATIVE STAT 05/14/2022 4:38 PM CDT COMPREHENSIVE METABOLIC PANEL STAT 05/14/2022 4:38 PM CDT documented in this encounter Results * HCG qualitative urine (05/14/2022 4:59 PM CDT) hCG Urine Qualitative Negative Negative LILLIAN 05/14/2022 6:36 PM CDT LABORATORY Comment:This test is for scr eening purposes. Results should be interpreted along with the clinical picture. Confirmation testing is available if warranted by ordering [id number], HCG Quantitative . Urine MID-STREAM URINE SPECIMEN / Unknown Non-blood Collection / Unknown 05/14/2022 4:59 PM CDT 05/14/2022 5:04 PM CDT us Jose Barnett MD LAB - URINE ORDERABLES F inal Result [facility] Acute Care Lab [address] [facility] Lab (1st floor, no room number) [place] [address], [facility] [phone] * (ABNORMAL) UA with Microscopic (05/14/2022 4:59 PM CDT) Color Urine Light Yellow Colorless, Straw, Light Yellow, Yellow 05/14/2022 5:12 PM CDT LABORATORY Appearance Urine Clear Clear 05/14/20 5:12 PM CDT LABORATORY Glucose Urine Negative Negative mg/dL 05/14/2022 5:12 PM CDT LABORATORY Bilirubin Urine Negative Negative 5:12 PM CDT LABORATORY Ketones Urine Negative Negative mg/dL 05/14/2022 5:12 PM CDT LABORATORY Specific [place] Urine 1.026 1.003 - 1.035 05/14/2022 5:12 PM CDT LABORATORY Blood Urine Negative Negative 05/14/2022 5:12 PM CDT LABORATORY pH Urine 5.0 5.0 - 7.0 05/14/2022 5:12 PM CDT LABORATORY Protein Albumin Urine Negative Negative mg/dL 05/14/2022 5:12 PM CDT LABORATORY Urobilinogen Urine Normal Normal, 2.0 mg/dL 05/14/2022 5:12 PM CDT LABORATORY Nitrite Urine Negative Negative 05/14/2022 5:12 PM CDT LABORATORY Leukocyte Esterase Urine Negative Negative 05/14/2022 5:12 PM CDT LABORATORY RBC Urine <1 <=2 /HPF 05/14/2022 5:12 PM CDT LABORATORY WBC Urine 1 <=5 /HPF 05/14/2022 5:12 PM CDT LABORATORY Squamous Epithelials Urine 5(H) <=1 /HPF 05/14/2022 5:12 PM CDT LABORATORY Urine MID-STREAM URINE SPECIMEN / Unknown Non-blood Collection / Unknown 05/14/2022 4:59 PM CDT 05/14/2022 5:04 PM CDT us Jose Barnett MD LAB - URINE ORDERABLES F inal Result LABORATORY [facility] Lab [address] [facility] Lab (1st floor, no room number) [place] [address], [facility] [phone] * (ABNORMAL) CBC with platelets and differential (05/14/2022 4:38 PM CDT) [facility] Signature WBC Count 10.6 4.0 - 11.0 10e3/uL 05/14/2022 4:46 PM CDT [facility] RBC Count 4.96 3.80 - 5.20 10e6/uL 05/14/2022 4:46 PM CDT [facility] Hemoglobin 13.5 11.7 - 15.7 g/dL 05/14/2022 4:46 PM CDT [facility] Hematocrit 43.1 35.0 - 47.0 % 05/14/2022 4:46 PM CDT [facility] MCV 87 78 - 100 fL 05/14/2022 4:46 PM CDT [facility] MCH 27.2 26.5 - 33.0 pg 05/14/2022 4:46 PM CDT [facility] MCHC 31.3(L) 31.5 - 36.5 g/dL 05/14/2022 4:46 PM CDT [facility] RDW 15.4(H) 10.0 - 15.0 % 05/14/2022 4:46 PM CDT [facility] Platelet Count 415 150 - 450 10e3/uL 05/14/2022 4:46 PM CDT [facility] % Neutrophils 61 % 05/14/2022 4:46 PM CDT [facility] % Lymphocytes 29 % 05/14/2022 4:46 PM CDT [facility] % Monocytes 7 % 05/14/2022 4:46 PM CDT [facility] % Eosinophils 1 % 05/14/2022 4:46 PM CDT [facility] % Basophils 1 % 05/14/2022 4:46 PM CDT [facility] % Immature Granulocytes 1 % 05/14/2022 4:46 PM CDT [facility] NRBCs per 100 WBC 0 <1 /100 022 4:46 PM CDT [facility] Absolute Neutrophils 6.6 1.6 - 8.3 10e3/uL 05/14/2022 4:46 PM CDT [facility] Absolute Lymphocytes 3.0 0.8 - 5.3 10e3/uL 05/14/2022 4:46 PM CDT [facility] Absolute Monocytes 0.7 0.0 - 1.3 10e3/uL 05/14/2022 4:46 PM CDT [facility] Absolute Eosinophils 0.1 0.0 - 0.7 10e3/uL 05/14/2022 4:46 PM CDT [facility] Absolute Basophils 0.1 0.0 - 0.2 10e3/uL 05/14/2022 4:46 PM CDT [facility] Absolute Immature Granulocytes 0.1 <=0.4 10e3/uL 05/14/2022 4:46 PM CDT [facility] Absolute NRBCs 0.0 10e3/uL 05/14/2022 4:46 PM CDT [facility] Blood STRUCTURE OF LEFT UPPER LIMB / Unknown Venipuncture / Unknown 05/14/2022 4:38 PM CDT 05/14/2022 4:43 PM CDT Jose Barnett MD LAB - BLOOD ORDERABLES F inal Result Performing Organization Address [facility]/ZIP Co de Phone Number [facility] Lab [address] Lab (1st floor, no room number) [place] [address], [facility] [phone] * HCG quantitative (05/14/2022 4:38 PM CDT) Pathologist [facility] Emergency Department hCG Quantitative <1 <5 mIU/mL 05/14/20 6:59 PM CDT [facility] LABORATORY Comment: Adult: 0-5 mIU/mL for healthy non- person Neonates: Should be within normal ranges by 2 days after Blood STRUCTURE OF LEFT UPPER LIMB / Unknown Venipuncture / Unknown 05/14/2022 4:38 PM CDT 05/14/2022 4:43 PM CDT us Jose Barnett MD LAB - BLOOD ORDERABLES F inal Result [facility] Lab [address] [employer] Lab (1st floor, no room number) [place] [address], [facility] [phone] * (ABNORMAL) Comprehensive metabolic panel (05/14/2022 4:38 PM CDT) Pathologist [facility] Emergency Department Sodium 136 136 - 145 mmol/L 05/14/2022 5:26 PM CDT LABORATORY Potassium 4.2 3.4 - 5.3 mmol/L 05/14/2022 5:26 PM CDT LABORATORY Creatinine 0.71 0.51 - 0.95 mg/dL 05/14/2022 5:26 PM CDT LABORATORY Urea Nitrogen 13.9 6.0 - 20.0 mg/dL 05/14/2022 5:26 PM CDT LABORATORY Chloride 103 98 - 107 mmol/L 05/14/2022 5:26 PM CDT LABORATORY Carbon Dioxide (CO2) 24 22 - 29 mmol/L 05/14/2022 5:26 PM CDT LABORATORY Anion Gap 9 7 - 15 mmol/L 05/14/2022 5:26 PM CDT LABORATORY Glucose 83 70 - 99 mg/dL 05/14/2022 5:26 PM CDT LABORATORY Calcium 8.8 8.6 - 10.0 mg/dL 05/14/2022 5:26 PM CDT LABORATORY Protein Total 7.8 6.4 - 8.3 g/dL 05/14/2022 5:26 PM CDT [facility] Albumin 4.4 3.5 - 5.2 g/dL 05/14/2022 5:26 PM CDT LABORATORY Bilirubin Total 0.4 <=1.2 mg/dL 05/14/2022 5:26 PM CDT [facility] LAB[facility] Alkaline Phosphatase 145(H) 35 - 104 U/L 05/14/2022 5:26 PM CDT LABORATORY AST 20 10 - 35 U/L 05/14/2022 5:26 PM CDT LABORATORY ALT 20 10 - 35 U/L 05/14/2022 5:26 PM CDT LABORATORY GFR Estimate >90 >60 mL/min/1.7 3m2 05/14/2022 5:26 PM CDT LABORATORY Comment:Effective September 092020 eGFRcr in adults is calculated using the 2020 CKD-EPI creatinine equation which includes age and gender (Charlie et al., NEJM, DOI: 10.1056/DSNFvx9472802) Blood STRUCTURE OF LEFT UPPER LIMB / Unknown Venipuncture / Unknown 05/14/2022 4:38 PM CDT 05/14/2022 4:43 PM CDT Jose Barnett MD LAB - BLOOD ORDERABLES F inal Result [facility] Lab [address] Lab (1st floor, no room number) [place] [address], [facility] [phone] * Partial thromboplastin time (05/14/2022 4:38 PM CDT) aPTT 28 22 - 38 Seconds 05/14/2022 4:59 PM CDT [facility] LABORATORY Blood STRUCTURE OF LEFT UPPER LIMB / Unknown Venipuncture / Unknown 05/14/2022 4:38 PM CDT 05/14/2022 4:43 PM CDT Jose Barnett MD LAB - BLOOD ORDERABLES F inal Result Performing Organization Address City/[facility]/ZIP Co de Phone Number [facility] Lab [address] Lab (1st floor, no room number) [place] [address], [facility] [phone] * INR (05/14/2022 4:38 PM CDT) INR 0.98 0.85 - 1.15 05/14/2022 4:58 PM CDT LABORATORY Blood STRUCTURE OF LEFT UPPER LIMB / Unknown Venipuncture / Unknown 05/14/2022 4:38 PM CDT 05/14/2022 4:43 PM CDT Jose Barnett MD LAB - BLOOD ORDERABLES F inal Result [facility] Lab [address] Lab (1st floor, no room number) [place] [address], [facility] [phone] documented in this encounter Visit Diagnoses Diagnosis Abdominal pain, epigastric Diarrhea of presumed infectious origin Hematochezia Blood in stool documented in this encounter Administered Medications Inactive Administered Medications - up to 3 most recent administrations Medication Order MAR Action Action Date Dose Rate Site acetaminophen (TYLENOL) tablet 500 mg 500 mg, Oral, EVERY 4 HOURS PRN, fever, Starting on 05/14/22 at 1557, Maximum acetaminophen dose from all sources = 75 mg/kg/day not to exceed 4 gram $Given 05/14/2022 4:12 PM CDT 500 mg documented in this encounter Active and Recently Administered Medications Times are shown in CDT. Scheduled Medication Order 05/12/2022 05/13/2022 05/14/2022 0.9% sodium chloride BOLUS Intravenous, 1,000 mL, ONCE, at 1,000 mL/hr, Administer over 1 Hours, On 05/14/22 at 1600, For 1 dose 1600 (Canceled Entry - Provider: Orders Generic Provider - Comment: Automatically canceled at discontinue of medication order) PRN Medication Order 05/12/2022 05/13/2022 05/14/2022 acetaminophen (TYLENOL) tablet 500 mg 500 mg, Oral, EVERY 4 HOURS PRN, fever, Starting on 05/14/22 at 1557, Maximum acetaminophen dose from all sources = 75 mg/kg/day not to exceed 4 gram 1612 ($Given - Provi nicolas: Joslyn Galindo RN - Comment: given for pain per MD) documented in this encounter Care Teams Statistical Clerk Relationship Specialty Start Date End Date Ness Conroy MD PCP - General Pediatrics 05/26/17 10/25/22 documented as of this encounter
--- OUTSIDE RECORDS SUMMARY | 2024-09-18 10:45 | XMS_ITS | Encounter Summary ---
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 Emergency Dept [address] [place] [id number] Bre Negron MD [facility] [address] [place], [place] [id number] Ovarian cyst, right Discharge Disposition: Home or Self Care Social History Tobacco Use Types Packs/Day Years Used Date Smoking Tobacco: Never Alcohol Use Standard Drinks/Week Comments No 0 (1 standard drink = 0.6 oz pur e alcohol) Comments Unknown Sex and Gender Information Value Date Recorded Sex Assigned at Not on file Legal Sex Female 11:33 PM CDT Gender Identity Not on file Sexual Orientation Not on file documented as of this encounter Last Filed Vital Signs Vital Sign Reading Time Taken Comments Blood Pressure 122/75 05/27/2017 3:55 AM CDT Pulse 68 05/27/2017 3:55 AM CDT Temperature 37.3 C (99.1 F) 05/26/2017 11:39 PM CDT Respiratory Rate 16 05/27/2017 3:55 AM CDT Oxygen Saturation 98% 05/27/2017 3:55 AM CDT Inhaled Oxygen Concentration - - Weight 69.2 kg (152 lb 8.9 oz) 05/26/2017 11:39 PM CDT Height - - Body Mass Index - - documented in this encounter Discharge Instructions * Discharge Instructions* Bre Negron MD - 05/27/2017 3:46 AM CDT Discharge Instructions Ovarian Cyst Abdominal (belly) pain can be caused by many things. Your provider today has found that you have a cyst on the ovary. Women in their reproductive years form cysts every month, but only cause pain if they are very large, or if they rupture and release blood or fluid. Fortunately, they rarely requiresurgery or hospitalization. The pain from a ruptured cyst usually gets gradually better, and shouldbe much better within a few days. If there is a large cyst, it will usually go away within 1-2 months, but needs to be watched to be sure it does go away, since sometimes a large cyst can become a cancer. There can be complications of a cyst, or other problems that cannot be found right away, so itis very important that you follow up as directed. Generally, every Emergency Department visit should have a follow-up clinic visit with either a primary or a specialty clinic/provider. Please follow-up as instructed by your emergency provider today. Return to the Emergency Department right away if: ??? Your pain becomes much worse or constant ??? You get an oral temperature above 100.4??F or as directed by your provider. ??? You have frequent vomiting ??? You faint, or feel very weak. ??? You have new symptoms or anything that worries you. What can I do to help myself? Take any medication prescribed by your provider. ??? You may use Tylenol?? (acetaminophen) or Advil??, Motrin?? (ibuprofen) for pain. Be sure to read and follow the package directions, and ask your provider if you have questions. ??? Avoid sex for several days, because it will probably be painful. If you were given a prescription for [...] that worries you. documented in this encounter ED Notes * Lisa Bee RN - 05/27/2017 1:04 AM CDT Pelvic exam done tolerated well * Charles Mcleod RN - 05/26/2017 11:38 PM CDT loow abd pain and right flank pain since [address] [facility] Pt A&O x 3, CMS x 3, ABCD's adequate in triage * Bre Negron MD - 05/26/2017 11:33 PM CDT History Chief Complaint: Abdominal Pain HPI Lisa Willis is a 16 year old female who presents with abdominal pain and right flank pain beginning yesterday and worsening around 7 pm tonight. [facility] where they ran a CBC and urinalysis. The patient states that she was told to present to the emergency department for further evaluation. She rates her current pain at 8/10 and states that it has gotten worse since leaving the [facility]. The patient states that she has not had intercourse and there is no chance of . She denies smoking cigarettes or using alcohol. She also denies any issues with family or friends. She denies any current urgency to urinate, burning sensation during urination, dark urine, problems passing stool, abnormal vaginal discharge, fever or cough. [facility] Labs Urinalysis: Normal CBC: WBC 14.8, RDW-SD 46.1, NED# 9.3, MPV 8.5, otherwise WNL Allergies: NKDA Medications: The patient is currently on no regular medications. Past Medical History: The patient denies any significant past medical history. Past Surgical History: The patient does not have any pertinent past surgical history. Family History: No past pertinent family history. Social History: Never Smoker Alcohol Use Negative Review of Systems Constitutional: Negative for fever. Respiratory: Negative for cough. Gastrointestinal: Positive for abdominal pain. Negative for blood in stool, constipation and diarrhea. Genitourinary: Positive for flank pain. Negative for dysuria, frequency, hematuria and vaginal discharge. All other systems reviewed and are negative. Physical Exam Patient Vitals for the past 24 hrs: BP Temp Temp src Pulse Heart Rate Resp SpO2 Weight 05/27/17 0355 122/75 - - 68 68 16 98 % - 05/27/17 0115 - - - - - - 100 % - 05/27/17 0055 - - - - - - 100 % - 05/27/17 0054 127/69 - - - - - - - 05/26/17 2339 - 99.1 ??F (37.3 ??C) Temporal 79 - 16 100 % 69.2 kg (152 lb 8.9 oz) Physical Exam Constitutional: Well developed, Well nourished, completely comfortable appearing HENT: Bilateral external ears normal, Mucous membranes moist, Nose normal. Neck- Normal range of motion, Supple Respiratory: Normal breath sounds, No respiratory distress, No wheezing, Cardiovascular: Normal heart rate, Normal rhythm, No murmurs, GI: Bowel sounds normal, Soft, Nondistended, No CV tenderness, Mild right lower quadrant tenderness, referred right lower quadrante pain with palpation of left lower quadrant, no rebound or guarding. : RN present for entire exam. External exam: no lesions, no erythema/cellulitis, otherwise unremarkable external genitalia Internal exam: Normal introitus. Scant white vaginal discharge noted. No blood noted. Bimanual exam: No Cervical motion tenderness or adnexal masses Musculoskeletal: Intact distal pulses, No edema, grossly unremarkable range of motion Integument: Warm, Dry Neurologic: Alert, attentive and appropriately oriented Psychiatric: Mildly anxious. Emergency Department Course Imaging: CT Abdomen Pelvis w/ Contrast 1. Both ovaries are prominent in size, the right ovary larger than the left. A 3 cm collapsing cystis present in the right ovary, most likely a functional cyst. 2. A small amount of free fluid is present in the pelvis and in bilateral paracolic gutters. This is nonspecific, but could relate to a ruptured right ovarian cyst. 3. No other cause of acute pain identified in the abdomen or pelvis. The appendix is unremarkable. As per radiology. US Pelvis Complete without Transvaginal 1. 3 cm mildly complex right ovarian cyst. This is nonspecific, but most likely a hemorrhagic cyst. 2. Otherwise unremarkable appearance of the uterus and ovaries. Blood flow is visualized in both ovaries. 3. A small amount of nonspecific free fluid in the pelvis. As per radiology. US Abdomen Limited 1. The appendix is not able to be visualized and therefore cannot evaluate for appendicitis. 2. A trace amount of nonspecific free fluid in the right lower Quadrant. As per radiology. Laboratory: Wet Prep: Few WBC's seen Neisseria Gonorrhoeae: In process Chlamydia Trachomatis: In process CBC: WBC: 14.7 (H), HGB: 12.6, PLT: 374 BMP: Glucose 102 (H), Calcium 8.8 hours (L), o/w WNL (Creatinine: 0.69) HCG Qualitative: Negative Interventions: 00:15 Toradol 30 mg IV 00:16 0.9% Sodium Chloride 692 mL IV 02:50 0.9% Sodium Chloride 59 mL IV 02:50 Iopamidol 500 mL IV Emergency Department Course: Nursing notes and vitals reviewed. I performed an exam of the patient as documented above. The patient was sent for a Abdomen Pelvic CT, Pelvis US and Abdomen US while in the emergency department, findings above. Blood drawn. This was sent to the lab for further testing, results above. Wet prep taken. This was sent to lab, results documented above. IV inserted. Medicine administered as documented above. 00:40 I updated the patient and her mother on the ED course and plan. 00:54 I performed a pelvic exam of the patient. 02:29 I reevaluated the patient and provided an update in regards to her ED course. The patient andmother were informed of lab findings. 03:47 I informed the patient of diagnosis and discussed plan going forward. I personally reviewed the laboratory results with the Patient and answered all related questions prior to discharge. Findings and plan explained to the Patient. Patient discharged home with instructions regarding supportive care, medications, and reasons to return. The importance of close follow-up was reviewed. Impression & Plan Medical Decision Making: Lisa Willis is a 16 year old female who presents with pelvic pain. They look overall well. A broad differential diagnosis was considered including colitis, appendicitis, intestinal cramping, pyelonephritis, UTI, kidney stone, constipation, diverticulitis, volvulus, ileus, obstruction, (ectopic or intrauterine), ovarian cyst (enlarged or ruptured), ovarian torsion, PID, etc as possibilities. Because of the nature of her symptoms, with significant right lower quadrant pain, leukocytosis, low-grade temperature, no urinary symptoms, workup included first ultrasound imaging, then one this showed only an unruptured cyst, did proceed to CT scan to evaluate for appendicitis. Ultimately, the workup in the ED shows ovarian cyst. She understands this may or not be the source of pain. Cultures were sent. Wet prep shows no specific findings. Doubt PID or TOA given clear findings of cyst without signs of abscess. No other etiology for the patients pain is found at this pointand my suspicion of an intraabdominal catastrophe or other worrisome etiology is very low. I will not therefore admit for serial exams and further workup. Patient is hemodynamically stable in ED. Plan is home with primary follow-up this week. Return for fevers greater than 102, increasing pain, other new symptoms develop. Abdominal pain handout given. Questions were answered. She and her family are comfortable with the plan. Diagnosis: ICD-10-CM 1. Ovarian cyst, right N83.201 Disposition: discharged to home Discharge Medications: There are no discharge medications for this patient. Bassem Heredia, am serving as a scribe on 05/26/2017 at 11:42 PM to personally document services performed by Bre Negron MD based on my observations and the provider's statements to me. 05/26/2017 [facility] EMERGENCY DEPARTMENT Bre Negron MD 05/27/17 0510 documented in this encounter Plan of Treatment Not on file documented as of this encounter Procedures Procedure Name Priority Date/Time Associated Diagnosis Comments CT ABDOMEN PELVIS W CONTRAST STAT 05/27/2017 2:55 AM CDT US PELVIC TRANSABDOMINAL STAT 05/27/2017 1:45 AM CDT US ABDOMEN LIMITED STAT 05/27/2017 1: 44 AM CDT WET PREPARATION STAT 05/27/2017 12:50 AM CDT NEISSERIA GONORRHOEAE PCR STAT 05/27/2017 12:50 AM CDT Ovarian cyst, right CHLAMYDIA TRACHOMATIS PCR STAT 05/27/2017 12:50 AM CDT Ovarian cyst, right CBC WITH PLATELETS & DIFFERENTIAL STAT 05/27/2017 12:05 AM CDT HCG QUALITATIVE STAT 05/27/2017 12:05 AM CDT BASIC METABOLIC PANEL STAT 05/27/2017 12:05 AM CDT documented in this encounter Results * CT Abdomen Pelvis w Contrast (05/27/2017 2:55 AM CDT) Anatomical Region Laterality Modality Abdomen/Pelvis, SUBRAD CT BODY, UMP CT ABDOMEN P MATI Computed Tomography Impressions 05/27/2017 3:29 AM CDT IMPRESSION: 1. Both ovaries are prominent in size, the right ovary larger than the left. A 3 cm collapsing cyst is present in the right ovary, most likely a functional cyst. 2. A small amount of free fluid is present in the pelvis and in bilateral paracolic gutters. This is nonspecific, but could relate to a ruptured right ovarian cyst. 3. No other cause of acute pain identified in the abdomen or pelvis. The appendix is unremarkable. SILVIO HUFF MD Narrative 05/27/2017 3:[address] ABDOMEN AND PELVIS WITH CONTRAST 05/27/2017 2:55 AM HISTORY: Right lower quadrant pain. COMPARISON: None. TECHNIQUE: Following the uneventful administration of 76 mL Isovue-370 intravenous contrast, helical sections were acquired from the top of the diaphragm through the pubic symphysis. Coronal reconstructions were generated. Radiation dose for this scan was reduced using automated exposure control, adjustment of the mA and/or kV according to the patient's size, or iterative reconstruction technique. FINDINGS: Abdomen: The liver, spleen, pancreas, adrenal glands and kidneys are unremarkable. The gallbladder is present. No enlarged lymph nodes in the upper abdomen. A small amount of free fluid is present in the bilateral paracolic gutters. Scan through the lower chest is unremarkable. Pelvis: The small and large bowel are normal in caliber. The appendix is unremarkable. No bowel wall thickening, pneumatosis or free intraperitoneal gas. The uterus is present. Both ovaries are mildly prominent in size. The right ovary is the largest, measuring 5.6 x 5.5 x 3.1 cm. A 3.1 x 2.8 x 2.0 cm collapsing cyst is present in the right ovary. No enlarged lymph nodes in the pelvis. A small amount of free fluid is present in the pelvis. Procedure Note Silvio Huff MD - 05/27/2017 CT ABDOMEN AND PELVIS WITH CONTRAST 05/27/2017 2:55 AM HISTORY: Right lower quadrant pain. COMPARISON: None. TECHNIQUE: Following the uneventful administration of 76 mL Isovue-370 intravenous contrast, helical sections were acquired from the top of the diaphragm through the pubic symphysis. Coronal reconstructions were generated. Radiation dose for this scan was reduced using automated exposure control, adjustment of the mA and/or kV according to the patient's size, or iterative reconstruction technique. FINDINGS: Abdomen: The liver, spleen, pancreas, adrenal glands and kidneys are unremarkable. The gallbladder is present. No enlarged lymph nodes in the upper abdomen. A small amount of free fluid is present in the bilateral paracolic gutters. Scan through the lower chest is unremarkable. Pelvis: The small and large bowel are normal in caliber. The appendix is unremarkable. No bowel wall thickening, pneumatosis or free intraperitoneal gas. The uterus is present. Both ovaries are mildly prominent in size. The right ovary is the largest, measuring 5.6 x 5.5 x 3.1 cm. A 3.1 x 2.8 x 2.0 cm collapsing cyst is present in the right ovary. No enlarged lymph nodes in the pelvis. A small amount of free fluid is present in the pelvis. IMPRESSION: 1. Both ovaries are prominent in size, the right ovary larger than the left. A 3 cm collapsing cyst is present in the right ovary, most likely a functional cyst. 2. A small amount of free fluid is present in the pelvis and in bilateral paracolic gutters. This is nonspecific, but could relate to a ruptured right ovarian cyst. 3. No other cause of acute pain identified in the abdomen or pelvis. The appendix is unremarkable. SILVIO HUFF MD us Bre Negron MD IMG CT ORDERABLES Final Result * US Pelvis Complete without Transvaginal (05/27/2017 1:45 AM CDT) Anatomical Region Laterality Modality Abdomen/Pelvis Ultrasound Impressions 05/27/2017 2:02 AM CDT IMPRESSION: 1. 3 cm mildly complex right ovarian cyst. This is nonspecific, but most likely a hemorrhagic cyst. 2. Otherwise unremarkable appearance of the uterus and ovaries. Blood flow is visualized in both ovaries. 3. A small amount of nonspecific free fluid in the pelvis. SILVIO HUFF MD Narrative 05/27/2017 2:02 AM CDT ULTRASOUND PELVIS WITH DOPPLER 05/27/2017 1:45 AM HISTORY: Pelvic pain. COMPARISON: None. TECHNIQUE: Spectral waveform and color Doppler evaluation were performed of the ovaries. FINDINGS: The uterus is anteflexed measuring 6.3 x 4.0 x 6.0 cm in long axis, short axis, and transverse dimensions respectively. No myometrial masses. The endometrial stripe measures 1.2 cm in thickness. The right and left ovaries measure 6.5 x 4.6 x 3.8 cm and 5.3 x 4.9 x 2.4 cm respectively. A 3.5 x 2.3 x 2.2 cm hypoechoic cyst is present in the right ovary. The left ovary is unremarkable. Blood flow is visualized in both ovaries. No adnexal masses. A small amount of simple-appearing free fluid in the pelvis. Procedure Note Silvio Huff MD - 05/27/2017 ULTRASOUND PELVIS WITH DOPPLER 05/27/2017 1:45 AM HISTORY: Pelvic pain. COMPARISON: None. TECHNIQUE: Spectral waveform and color Doppler evaluation were performed of the ovaries. FINDINGS: The uterus is anteflexed measuring 6.3 x 4.0 x 6.0 cm in long axis, short axis, and transverse dimensions respectively. No myometrial masses. The endometrial stripe measures 1.2 cm in thickness. The right and left ovaries measure 6.5 x 4.6 x 3.8 cm and 5.3 x 4.9 x 2.4 cm respectively. A 3.5 x 2.3 x 2.2 cm hypoechoic cyst is present in the right ovary. The left ovary is unremarkable. Blood flow is visualized in both ovaries. No adnexal masses. A small amount of simple-appearing free fluid in the pelvis. IMPRESSION: 1. 3 cm mildly complex right ovarian cyst. This is nonspecific, but most likely a hemorrhagic cyst. 2. Otherwise unremarkable appearance of the uterus and ovaries. Blood flow is visualized in both ovaries. 3. A small amount of nonspecific free fluid in the pelvis. SILVIO HUFF MD Bre Negron MD [facility] US ORDERABLES Final Result * US Abdomen Limited (05/27/2017 1:44 AM CDT) Anatomical Region Laterality Modality Abdomen/Pelvis Ultrasound Impressions 05/27/2017 2:02 AM CDT IMPRESSION: 1. The appendix is not able to be visualized and therefore cannot evaluate for appendicitis. 2. A trace amount of nonspecific free fluid in the right lower quadrant. SILVIO HUFF MD Narrative 05/27/2017 2:02 AM CDT ULTRASOUND ABDOMEN LIMITED 05/27/2017 1:44 AM HISTORY: Right lower quadrant pain. Evaluate for appendicitis. COMPARISON: None. TECHNIQUE: Focused ultrasound scanning was performed by the polysomnographic technologist of the right lower quadrant in order to evaluate the appendix. FINDINGS: The appendix is not visualized. A trace amount of free fluid in the right lower quadrant. Procedure Note Silvio Huff MD - 05/27/2017 ULTRASOUND ABDOMEN LIMITED 05/27/2017 1:44 AM HISTORY: Right lower quadrant pain. Evaluate for appendicitis. COMPARISON: None. TECHNIQUE: Focused ultrasound scanning was performed by the polysomnographic technologist of the right lower quadrant in order to evaluate the appendix. FINDINGS: The appendix is not visualized. A trace amount of free fluid in the right lower quadrant. IMPRESSION: 1. The appendix is not able to be visualized and therefore cannot evaluate for appendicitis. 2. A trace amount of nonspecific free fluid in the right lower quadrant. SILVIO HUFF MD Bre Negron MD [facility] US ORDERABLES Final Result * Chlamydia trachomatis PCR (05/27/2017 12:50 AM CDT) Specimen Description Cervix 05/27/2017 1:03 AM CDT [facility] Chlamydia Trachomatis PCR Negative NEG^Negat clara 05/28/2017 1:38 PM CDT [facility] Comment: Negative for C. trachomatis rRNA by water filterer helper mediated amplification. A negative result by water filterer helper mediated amplification does not preclude the presence of C. trachomatis infection because results are dependent on proper and adequate collection, absence of inhibitors, and sufficient rRNA to be detected. Cervical swab (specimen) 05/27/2017 12:50 AM CDT 05/27/2017 1:03 AM CDT us Bre Negron MD LAB - MICRO GENERAL ORDERABLES Final Result Performing Organization Address [facility] Co de Phone Number [facility] [address] [phone] * Neisseria gonorrhoeae PCR (05/27/2017 12:50 AM CDT) Specimen Descrip Cervix 05/27/20 17 1:03 AM CDT [facility] N Gonorrhea PCR Negative NEG^Negat clara 05/28/2017 1:38 PM CDT [facility] Comment: Negative for N. gonorrhoeae rRNA by water filterer helper mediated amplification. A negative result by water filterer helper mediated amplification does not preclude the presence of N. gonorrhoeae infection because results are dependent on proper and adequate collection, absence of inhibitors, and sufficient rRNA to be detected. Cervical swab (specimen) 05/27/2017 12:50 AM CDT 05/27/2017 1:03 AM CDT us Bre Negron MD LAB - MICRO GENERAL ORDERABLES Final Result Performing Organization Address [facility] Co de Phone Number [facility] [address] [phone] * Wet prep (05/27/2017 12:50 AM CDT) Specimen Description Vagina [facility] Wet Prep Few WBC'S seen 05/27/2017 1:24 AM CDT [facility] Wet Prep No Trichomonas seen 05/27/2017 1:24 AM CDT [facility] Wet Prep No clue cells seen 05/27/2017 1:24 AM CDT [facility] Wet Prep No yeast seen 05/27/2017 1:24 AM CDT [facility] Specimen from vagina (specimen) 05/27/2017 12:50 AM CDT 05/27/2017 1:02 AM CDT us Bre Negron MD LAB - MICRO GENERAL ORDERABLES Final Result Performing Organization Address [facility] de Phone Number [facility] [address] [phone] * HCG qualitative (05/27/2017 12:05 AM CDT) HCG Qualitative Serum Negative NEG^Negat clara 05/27/2017 12:39 AM CDT [facility] Comment: This test is for screening purposes. Results should be interpreted along with the clinical picture. Confirmation testing is available if warranted by ordering [id number], HCG Quantitative . Blood specimen (specimen) 05/27/2017 12:05 AM CDT 05/27/2017 12:11 AM CDT us Bre Negron MD LAB - BLOOD ORDERABLES Final R esult Performing Organization Address [facility] Co de Phone Number [facility] [address] [phone] * (ABNORMAL) Basic metabolic panel (05/27/2017 12:05 AM CDT) Sodium 140 133 - 143 mmol/L 05/27/2017 12:31 AM CDT [facility] Potassium 3.8 3.4 - 5.3 mmol/L 05/27/2017 12:31 AM [facility] Chloride 109 96 - 110 mmol/L 05/27/2017 12:31 AM [facility] Carbon Dioxide 25 20 - 32 mmol/L 05/27/2017 12:31 AM [facility] Anion Gap 6 3 - 14 mmol/L 05/27/2017 12:31 AM [facility] Glucose 102(H) 70 - 99 mg/dL 05/27/2017 12:31 AM [facility] Urea Nitrogen 15 7 - 19 mg/dL 05/27/2017 12:31 AM [facility] Creatinine 0.69 0.50 - 1.00 mg/dL 05/27/2017 12:31 AM [facility] GFR Estimate GFR not calculated, patient <16 years old. mL/min/1. 7m2 05/27/2017 12:31 AM [facility] Comment:Non GFR Calc GFR Estimate If Black GFR not calculated, patient <16 years old. mL/min/1. 7m2 05/27/2017 12:31 AM [facility] Comment: GFR Calc Calcium 8.8(L) 9.1 - 10.3 mg/dL 05/27/2017 12:31 AM [facility] Blood specimen (specimen) 05/27/2017 12:05 AM CDT 05/27/2017 12:11 AM CDT us Bre Negron MD LAB - BLOOD ORDERABLES Final R esult [facility] Silvia Rowan libby [place] [id number] [phone] * (ABNORMAL) CBC with platelets differential (05/27/2017 12:05 AM CDT) WBC 14.7(H) 4.0 - 11.0 10e9/L 05/27/2017 12:16 AM [facility] RBC Count 4.40 3.7 - 5.3 10e12/L 05/27/2017 12:16 AM [facility] Hemoglobin 12.6 11.7 - 15.7 g/dL 05/27/2017 12:16 AM [facility] Hematocrit 37.7 35.0 - 47.0 % 05/27/2017 12:16 AM [facility] MCV 86 77 - 100 fl 05/27/2017 12:16 AM [facility] MCH 28.6 26.5 - 33.0 pg 05/27/2017 12:16 AM [facility] MCHC 33.4 31.5 - 36.5 g/dL 05/27/2017 12:16 AM [facility] RDW 14.7 10.0 - 15.0 % 05/27/2017 12:16 AM [facility] Platelet Count 374 150 - 450 10e9/L 05/27/2017 12:16 AM [facility] Diff Method Automated Method 05/27/2017 12:16 AM [facility] % Neutrophils 66.1 % 05/27/2017 12:16 AM [facility] % Lymphocytes 25.9 % 05/27/2017 12:16 AM [facility] % Monocytes 6.4 % 05/27/2017 12:16 AM [facility] % Eosinophils 0.8 % 05/27/2017 12:16 AM [facility] % Basophils 0.6 % 05/27/2017 12:16 AM [facility] % Immature Granulocytes 0.2 % 05/27/2017 12:16 AM [facility] Nucleated RBCs 0 0 /100 05/27/2017 12:16 AM [facility] Absolute Neutrophil 9.7(H) 1.3 - 7.0 10e9/L 05/27/2017 12:16 AM [facility] Absolute Lymphocytes 3.8 1.0 - 5.8 10e9/L 05/27/2017 12:16 AM [facility] Absolute Monocytes 0.9 0.0 - 1.3 10e9/L 05/27/2017 12:16 AM [facility] Absolute Eosinophils 0.1 0.0 - 0.7 10e9/L 05/27/2017 12:16 AM CDT [facility] Absolute Basophils 0.1 0.0 - 0.2 10e9/L 05/27/2017 12:16 AM CDT [facility] Abs Immature Granulocytes 0.0 0 - 0.4 10e9/L 05/27/2017 12:16 AM CDT [facility] Absolute Nucleated RBC 0.0 05/27/2017 12:16 AM CDT [facility] Blood specimen (specimen) 05/27/2017 12:05 AM CDT 05/27/2017 12:11 AM CDT us Bre Negron MD LAB - BLOOD ORDERABLES Final R esult [facility] [address] [place] [address], [facility] [phone] documented in this encounter Visit Diagnoses Diagnosis Ovarian cyst, right Other and unspecified ovarian cyst documented in this encounter Administered Medications Inactive Administered Medications - up to 3 most recent administrations Medication Order MAR Action Action Date Dose Rate Site 0.9% sodium chloride BOLUS Intravenous, 692 mL (10 mL/kg 69.2 kg), ONCE, On Mon05/26/17 at 2356, For 1 dose $New Bag 05/27/2017 12:16 AM CDT 692 mLs 0.9% sodium chloride BOLUS Intravenous, 1,000 mL, ONCE, On 05/27/17 at 0247, For 1 dose $New Bag 05/27/2017 2:50 AM CDT 59 mLs iopamidol (ISOVUE-370) solution 500 mL 500 mL, Intravenous, ONCE, On 05/27/17 at 0247, For 1 dose $Given 05/27/2017 2:50 AM CDT 76 mLs ketorolac (TORADOL) injection 30 mg 30 mg (rounded from 34.6 mg = 0.5 mg/kg 69.2 kg), Intravenous, Administer over 5 Minutes, ONCE, On Mon05/26/17 at 2356, For 1 dose, For moderate pain. Do not give within 6 hours of Ibuprofen $Given 05/27/2017 12:15 AM CDT 30 mg documented in this encounter Active and Recently Administered Medications Times are shown in CDT. Scheduled Medication Order 05/25/2017 05/26/2017 05/27/2017 0.9% sodium chloride BOLUS (COMPLETED) Intravenous, 692 mL (10 mL/kg 69.2 kg), ONCE, On Mon05/26/17 at 2356, For 1 dose 0016 ($New Bag - Pro vider: Lisa Bee RN)0109 (Stopped - Provider: Lisa Bee RN) 0.9% sodium chloride BOLUS (COMPLETED) Intravenous, 1,000 mL, ONCE, On 05/27/17 at 0247, For 1 dose 0250 ($New Bag - Pro vider: Mohammad Valenzuela - Comment: Bulk)0252 (Stopped - Provider: Pepe Valenzuela) iopamidol (ISOVUE-370) solution 500 mL (COMPLETED) 500 mL, Intravenous, ONCE, On 05/27/17 at 0247, For 1 dose 0250 ($Given - Provi nicolas: Mohammad Valenzuela - Comment: Bulk) ketorolac (TORADOL) injection 30 mg (COMPLETED) 30 mg (rounded from 34.6 mg = 0.5 mg/kg 69.2 kg), Intravenous, Administer over 5 Minutes, ONCE, On Mon05/26/17 at 2356, For 1 dose, For moderate pain. Do not give within 6 hours of Ibuprofen 0015 ($Given - Provi nicolas: Lisa Bee RN) documented in this encounter Care Teams Grinding Machine Operator Portable Relationship Specialty Start Date End Date Ness Conroy MD PCP - General Pediatrics 05/26/17 10/25/22 documented as of this encounter
--- OUTSIDE RECORDS SUMMARY | 2024-09-18 10:45 | XMS_ITS | Encounter Summary ---
Author Organization [place] Address [address] [place] [address] Care Team Providers Care Foreman/Project Manager Name Role Phone Ness Conroy MD Primary Care Provider [phone] Encounter Details Date Type Department Care Team (Latest Contact Info) Description 03/02/2022 Travel Social History Tobacco Use Types Packs/Day [...] suspected to have Coronavirus/COVID-19? No / Unsure 03/02/2022 10:15 PM CDT documented as of this encounter Plan of Treatment Not on file documented as of this encounter Visit Diagnoses Not on filedocumented in this encounter Care Teams Foreman/Project Manager Relationship Specialty Start Date End Date Ness Conroy MD PCP - General Pediatrics 05/26/17 10/25/22 documented as of this encounter
--- OUTSIDE RECORDS SUMMARY | 2024-09-18 10:45 | XMS_ITS | Encounter Summary ---
Author Organization [place] Address [address] [place] [address] Care Team Providers Care Algebra Tutor Name Role Phone Ness Conroy MD Primary Care Provider [phone] Channing Brush MD Primary Care Provider [phone] Encounter Details Date Type Department Care Team [...] on filedocumented in this encounter Care Teams Algebra Tutor Relationship Specialty Start Date End Date Ness Conroy MD PCP - General Pediatrics 05/26/17 10/25/22 [place] [address] [place] [address] PCP - General 10/26/22 documented as of this encounter
--- OUTSIDE RECORDS SUMMARY | 2024-09-18 10:45 | XMS_ITS | Encounter Summary ---
Author Organization [facility] Address [address] [place] [address] Care Team Providers Care Ruffling Hemmer Automatic Name Role Phone Channing Brush MD Primary Care Provider [phone] Encounter Details Date Type Department Care Team (Latest Contact Info) Description 09/29/2023 Travel Social History Tobacco Use Types Packs/Day [...] on file documented as of this encounter Plan of Treatment Not on file documented as of this encounter Visit Diagnoses Not on filedocumented in this encounter Care Teams Ruffling Hemmer Automatic Relationship Specialty [place] [address] [place] [address] PCP - General 10/26/22 documented as of this encounter
--- OUTSIDE RECORDS SUMMARY | 2024-09-18 10:45 | XMS_ITS | Encounter Summary ---
Author Organization [place] Address [address] [place] [address] Care Team Providers Care Reception Name Role Phone Ness Conroy MD Primary Care Provider [phone] Encounter Details Date Type Department Care Team (Latest Contact Info) Description 07/04/2021 Travel Social History Tobacco Use Types Packs/Day [...] on filedocumented in this encounter Care Teams Reception Relationship Specialty Start Date End Date Ness Conroy MD PCP - General Pediatrics 05/26/17 10/25/22 documented as of this encounter
--- OUTSIDE RECORDS SUMMARY | 2024-09-18 10:45 | XMS_ITS | Encounter Summary ---
Author Organization [place] Address [address] [place] [address] Care Team Providers Care Screen Making Supervisor Name Role Phone Ness Conroy MD Primary Care Provider [phone] Reason for Visit * Reason Comments Finger Encounter Details Date Type Department Care Team (Late st Contact Info) Description 03/03/2022 12:08 AM CDT - 03/03/2022 1:19 AM CDT Emergency [facility] Emergency Dept [address] [place] [address] Bhavesh Samaniego MD [facility] [address] [place], [place] [id number] Sprain of interphalangeal joint of left little finger, initial encounter Discharge Disposition: Home or Self Care Social [...] Sign Reading Time Taken Comments Blood Pressure 142/114 03/02/2022 10:15 PM CDT Pulse 79 03/02/2022 10:15 PM CDT Temperature 36.8 C (98.3 F) 03/02/2022 10:15 PM CDT Respiratory Rate 16 03/02/2022 10:15 PM CDT Oxygen Saturation 100% 03/02/2022 10:15 PM CDT Inhaled Oxygen Concentration - - Weight - - Height - - Body Mass Index - - documented in this encounter Discharge Instructions * Attachments The following attachments cannot be sent through Care Everywhere. * Finger Sprain ([place]) documented in this encounter Medications at Time of Discharge dexamethasone (DECADRON) 4 MG tablet Take 2 tablets (8 mg) by mouth once for 1 dose 2 tablet 03/30/2021 09/29/2023 LANsoprazole (PREVACID) 30 MG CR capsule Take 30 mg by mouth daily 09/29/2023 documented as of this encounter ED Notes * Jie Arriola RN - 03/02/2022 10:16 PM CDT 3 days ago pt playing football when ball hit L jayie finger bending it toward palm. Pt unable to bend finger, edema, and extreme pain shooting down arm. ABC in tact. A/OX4. CMS in tact. * Bhavesh Samaniego MD - 03/02/2022 9:45 PM CDT History Chief Complaint: Finger The history is provided by the patient. Lisa Willis is a 21 year old female who presents with left little finger pain. She reports thatshe was playing football three days ago when the finger bent inwards towards the palm. The patient reports pain shooting down the arm and is unable to bend the finger. She also reports swelling. Review of Systems Musculoskeletal: Positive for arthralgias and joint swelling. (+) left fifth finger pain All other systems reviewed and are negative. Allergies: The patient has no known allergies. 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 Arrived to the ED by private vehicle. Physical Exam Patient Vitals for the past 24 hrs: BP Temp Temp src Pulse Resp SpO2 03/02/22 2215 (!) 142/114 98.3 ??F (36.8 ??C) Temporal 79 16 100 % Physical Exam Constitutional: Alert, attentive, GCS 15 Cardiovascular: 2+ radial and ulnar pulses to the bilateral upper extremities Neurological: 5/5 strength to the radian, ulnar and median motor distributions; sensation intact to light touch to the radian, ulnar and median distributions MSK: Normal inspection of the left fifth finger except for mild swelling to the proximal phalanx tender to the PIP joints;, where there is limited range of motion due to pain. No erythema, warmth, orpain out of proportion to exam. No tenderness to the flexor tendon. Extension and flexion are present at the MCP, PIP, and DIP Skin: Skin is warm and dry. Emergency Department Course Imaging: Fingers XR, 2-3 views, left Final Result IMPRESSION: Anatomic alignment of the bones and joints of the left fifth digit. No fracture or dislocation. Slight soft tissue swelling, more apparent proximally. If clinical symptoms persist or worsen, consider short interval follow-up in 7-10 days. Report per radiology Emergency Department Course: Reviewed: I reviewed nursing notes, vitals and Care Everywhere Assessments: 0035 I obtained history and examined the patient as noted above. 0106 At this point I feel that the patient is safe for discharge, and the patient agrees. Finger was murphy taped by RN. Disposition: The patient was discharged to home. Impression & Plan Medical Decision Making: This is a 21-year-old female presents for evaluation of little finger pain after playing football. There is no evidence of fracture on x-ray. Flexion extension function are intact. Work-up is consistent with sprain. Plan Murphy tape, orthopedic follow-up as needed, and return precautions for worse pain, swelling, or any other concerns. Diagnosis: ICD-10-CM 1. Sprain of interphalangeal joint of left little finger, initial encounter S63.637A Discharge Medications: New Prescriptions No medications on file Scribe Disclosure: Yan, Anny Deckerk, am serving as a scribe at 12:45 AM on 03/03/2022 to document services personally performed by Bhavesh Samaniego MD based on my observations and the provider's statements to me. Bhavesh Samaniego MD 03/03/22 0137 documented in this encounter Plan of Treatment Not on file documented as of this encounter Procedures Procedure Name Priority Date/Time Associated Diagnosis Comments XR FINGER LEFT G/E 2 VIEWS STAT 03/02/2022 10:33 PM CDT documented in this encounter Results * Fingers XR, 2-3 views, left (03/02/2022 10:33 PM CDT) Anatomical Region Laterality Modality Hand, Left Hand Left Computed Radiogr aphy 03/02/2022 10:2 9 PM CDT Impressions 03/02/2022 11:01 PM CDT IMPRESSION: Anatomic alignment of the bones and joints of the left fifth digit. No fracture or dislocation. Slight soft tissue swelling, more apparent proximally. If clinical symptoms persist or worsen, consider short interval follow-up in 7-10 days. Narrative 03/02/2022 11:01 PM CDT EXAM: XR FINGER LEFT G/E 2 VIEWS LOCATION: [facility] DATE/TIME: 03/02/2022 10:29 PM INDICATION: Football injury. Pain. COMPARISON: None. Procedure Note Paul Cortés MD - 03/02/2022 EXAM: XR FINGER LEFT G/E 2 VIEWS LOCATION: [facility] DATE/TIME: 03/02/2022 10:29 PM INDICATION: Football injury. Pain. COMPARISON: None. IMPRESSION: Anatomic alignment of the bones and joints of the left fifthdigit. No fracture or dislocation. Slight soft tissue swelling, moreapparent proximally. If clinical symptoms persist or worsen, considershort interval follow-up in 7-10 days. Bhavesh Samaniego MD IMG DIAGNOSTIC IMAGING OR DERABLES Final Result documented in this encounter Visit Diagnoses Diagnosis Sprain of interphalangeal joint of left little finger, initial encounter documented in this encounter Care Teams Screen Making Supervisor Relationship Specialty Start Date End Date Ness Conroy MD PCP - General Pediatrics 05/26/17 10/25/22 documented as of this encounter
--- OUTSIDE RECORDS SUMMARY | 2024-09-18 10:45 | XMS_ITS | Encounter Summary ---
Author Organization [facility] Address [address] [place] [id number] Care Team Providers Care Test Desk Trouble Locator Name Role Phone Ness Conroy MD Primary Care Provider [phone] Reason for Visit * Reason Comments Suicidal * Auth/Cert Specialty Diagnoses / Procedures Referred By Contac t Referred To Contact Behavioral Health Diagnoses Depression, unspecified depression type Suicidal ideation [facility] Unit [address] [place] [id number] Phone: tel: fax: Referral ID Status Reason Start Date Expiration Date Visits Re quested Visits Authorized [id number] 1 1 Encounter Details Date Type Department Care Team (Late st Contact Info) Description 02/15/2018 2:33 PM CDT - 02/16/2018 2:04 PM CDT Hospital Encounter [facility] Unit [address] [place] [phone] Tony Edgar MD [address] [place] [id number] Myra Cevallos MD Depression, unspecified depression type Discharge Disposition: Home or Self Care Social [...] Sign Reading Time Taken Comments Blood Pressure 120/78 02/16/2018 8:52 AM CDT Pulse 68 02/16/2018 8:52 AM CDT Temperature 36.5 C (97.7 F) 02/16/2018 8:52 AM CDT Respiratory Rate 16 02/15/2018 7:53 PM CDT Oxygen Saturation 99% 02/15/2018 7:53 PM CDT Inhaled Oxygen Concentration - - Weight 67.1 kg (147 lb 14.9 oz) 02/15/2018 8:21 PM CDT Height 162.6 cm (5' 4) 02/15/2018 8:21 PM CDT Body Mass Index 25.39 02/15/2018 8:21 PM CDT Body Mass Index Percentile 86.61% 02/15/2018 8:2 1 PM CDT Growth Chart: [facility] (Girls, 2- 20 Years) documented in this encounter Discharge Summaries * Myra Cevallos MD - 02/16/2018 12:00 PM CDT Psychiatric Discharge Summary Lisa Willis Age: [age] year old Date of : 2000 Date of Admission: 02/15/2018 Date of Discharge: 02/16/2018 2:04 PM Admitting Physician: Myra Cevallos MD Discharge Physician: Myra Cevallos MD Event Leading to Hospitalization: Patient was admitted from ER for SI. Symptoms have been present for 10 years. , ?? Depression started when pt was 7 yo . She cannot identify significant trigger. She has rarely had SI on and off. Yesterday, for no clear reason, ( per pt) depressed mood and SI got worse and she had SI with a plan to jump off the window of 3rd story at school, or jump in front of a car. She went to talk to a school counselor and told about this, then she was brought to ER by ambulance. ?? In ER, she was afraid that mom and step-dad would get made at me, so she refused to see them when they came to ER. For unclear reasons, Mom did not have any contact with ER staff then patient was placed on 72 hour hold, brought to the unit. She states that her appetite and sleep has been ok. She has no history of SA. She denies sense of hopelessness. She denies psychotic symptoms. She denied SI on my examination on the morning of 02/16 and said she just wants to go home. ?? She denies history of abuse. She denies significant problems with mother or step-father. Her mother used to drink a lot of alcohol, but does not drink as much. See Admission note for additional details. Diagnoses/Labs/Consults/Hospital Course: Principal Diagnosis: MDD, recurrent, moderate, Unit: 7AE Attending: Mart Medications: risks/benefits was not discussed with her mother Of note, in ER, patient was placed on 72 hour hold. It was reported that they could not reach her mother, but her mother actually stayed in ER for 2 hours, per mom, but was not allowed to see the patient, as pt refused to see her mother and step-father. Soon after my examination in the morning of 02/16, her mother wanted the patient to be discharged. No medication was prescribed in this hospitalization. ? Laboratory/Imaging: - COMP, CBC, TSH, lipids WNL, Upreg neg, UDS neg and Vit D 14 Consults: - none ?? Secondary psychiatric diagnoses of concern this admission: None ?? Medical diagnoses to be addressed this admission: None ?? Relevant psychosocial stressors: family dynamics ?? Legal Status: 72-h Hold signed on 02/15/2018 ?? Safety Assessment: Checks: Status 15 Precautions: Suicide Pt has not required locked seclusion or restraints in the past 24 hours to maintain safety, please refer to executive account manager for further details. Lisa Willis did not participate in groups and was not visible in the milieu. The patient's symptoms of SI and depressed improved. Lisa Willis was released to home. We would have needed more time to accurately assess and treather condition, but as her guardian requested that pt be discharged immediately, and patient was nota danger to herself and other people, she was discharged AMA. Discussed plan with mother on day of discharge. Discharge Medications: Discharge Medication List as of 02/16/2018 1:31 PM CONTINUE these medications which have NOT CHANGED Details LANsoprazole (PREVACID) 30 MG CR capsule Take 30 mg by mouth daily, Historical Psychiatric Examination: Appearance: awake, alert Attitude: somewhat cooperative Eye Contact: fair Mood: depressed Affect: mood congruent Speech: clear, coherent Psychomotor Behavior: no evidence of tardive dyskinesia, dystonia, or tics and intact station, gaitand muscle tone Thought Process: goal oriented Associations: no loose associations Thought Content: no evidence of psychotic thought, passive suicidal ideation present, no auditory hallucinations present and no visual hallucinations present Insight: fair Judgment: limited Oriented to: time, person, and place Attention Span and Concentration: fair Recent and Remote Memory: fair Language: Able to name objects Fund of Knowledge: appropriate Muscle Strength and Tone: normal Gait and Station: Normal Discharge Plan: Health Care Follow-up Appointments: Patient's mom indicated she is working on scheduling follow up appointments with psychologist patient has seen at [facility]. Treatment team recommends weekly therapy. At this time patient stated she doesn't wish to take any medications for mental health. Please noteyou can talk to your primary care doctor at any time regarding such. Attestation: The patient has been seen and evaluated by Myra jorgensen MD Time: < 30 minutes documented in this encounter Discharge Instructions * Discharge Instructions* Shaylee Long, [facility] - 02/16/2018 1:22 PM CDT Behavioral Discharge Planning and Instructions Summary: You were admitted on 02/15/2018 due to Suicidal Ideations. You were treated by Dr. Myra Cevallos MD and discharged AMA on 02/16/2018 from Station 7A to Home Principal Diagnosis: Major Depressive Disorder, Moderate Health Care Follow-up Appointments: Patient's mom indicated she is working on scheduling follow up appointments with psychologist patient has seen at [facility]. Treatment team recommends weekly therapy. At this time patient stated she doesn't wish to take any medications for mental health. Please noteyou can talk to your primary care doctor at any time regarding such. Attend all scheduled appointments with your outpatient providers. Call at least 24 hours in advanceif you need to reschedule an appointment to ensure continued access to your outpatient providers. Major Treatments, Procedures and Findings: You were provided with: a psychiatric assessment, assessed for medical stability, medication evaluation and/or management, group therapy and milieu management Symptoms to Report: feeling more aggressive, increased confusion, losing more sleep, mood getting worse or thoughts of suicide Early warning signs can include: increased depression or anxiety sleep disturbances increased thoughts or behaviors of suicide or self-harm increased unusual thinking, such as paranoia or hearing voices Safety and Wellness: The patient should take medications as prescribed. Patient's caregivers are highly encouraged to supervise administering of medications and follow treatment recommendations. Patient's caregivers should ensure patient does not have access to: Firearms Medicines (both prescribed and [id number]) Knives and other sharp objects Ropes and like materials Alcohol Car keys If there is a concern for safety, call 911. Resources: Crisis Intervention: 467.396.6697 or 005-009-6752 (TTY: 477.516.8229). Call anytime for help. [facility] Crisis Response [phone] Crisis text line: Text [place] to 594299. Free, confidential, 01/05. The treatment team has appreciated the opportunity to work with you and thank you for choosing the [facility]. If you have any questions or concerns our unit number is [phone] If needed, our patient relations phone number is [phone] documented in this encounter Medications at Time of Discharge LANsoprazole (PREVACID) 30 MG CR capsule Take 30 mg by mouth daily 09/29/2023 documented as of this encounter Progress Notes * Fernanda Terrell RN - 02/16/2018 1:41 PM CDT Pt was discharged into the care of Mom. Discharge teaching, including f/u care and medication teaching, complete. Pt completed Coping Plan and denies SI/SIB/HI. I encouraged pt's guardian to considerlocking all prescription and OTC meds in a safe/lockbox. Mom was informed that pt is discharging AMA. * Artie Grey OT - 02/16/2018 1:10 PM CDT Pt did not attend scheduled occupational therapy group session this morning. Plan to invite again in the future. * Shaylee Long, [employer] - 02/16/2018 11:52 AM CDT Architectural Designer called pt school sharing only pt name in an effort to find mom phone # as per ED notes no working # for mom was available, the # in chart was not active and messages left at another # were notreturned. School called sba underwriter back and indicated that they couldn't give out mom # but would call her and pass along sba underwriter contact information. Pt mom called from #[phone] (unclear if this was as a result of school contact or not). Was very tearful and stated she did not know what happened with her daughter. [facility] called the ambulance to have pt taken to hospital. Mom didn't know why,and then per mom, she went to ED and was not allowed to speak with her daughter. Mom stated she spoke with Dr. Edgar (identified his name in phone call specifically) and talked to nurse (older male with ponytail), that her and her were in ED for two hours. Mom stated to sba underwriter she wanted to know what happened with her daughter. Would like to pull daughter from hospital. Architectural Designer indicated pt was admitted after assessment in ED for suicidal ideation. Architectural Designer spoke to physician, who indicated she can discharge pt per mom request. Architectural Designer spoke to pt who indicated that she told school she was feeling suicidal, school counselor called someone else to assess her (Kendra) who then called ambulance. Pt reported she had said at that time she wasn't going act. Pt stated suicidal ideation gets intense at times but that she'd neverdo it, has plans for next year. Architectural Designer asked her re: plans--pt indicated she is excited to be 19, have more freedom, has a boyfriend she is in love with etc. Does state school is a stressor but she can cope using music, taking a break. Pt indicated having met with a therapist at [facility] before but not for a month or so, that she hasn't established with a therapist at any time--started with a few but they or her or mom don't follow up. Pt stated she got to ED and didn't want to talk to mom, she felt very overwhelmed with being at ED and wanted to be left alone. Expressed wanting to go home. Noted she can keep herself safe. Open to referrals to therapy and to sba underwriter speaking with school to advocate for school. Architectural Designer spoke to pt mom, confirmed pt can d/c. Will be AMA. Mom stated that she had talked to schooland mom works overnights, is hard to reach in morning, school didn't contact mom's partner or grandma for pt and so school called emergency services and things escalated from there per mom. Mom stated she is relieved to know where her daughter is and will be coming to pick her up TAB. Mom gave permission for sba underwriter to talk to school to coordinate, and was receptive to sba underwriter's emphasis that patient or mom or school ideally will be willing to still seek out supports (such as a crisis line) and that it may not mean immediate hospitalization, despite how pt and mom experienced this admission. Noted it is important to be cautious and take suicidal statement seriously also. Mom plans to contact [facility] to get therapy appointments ongoing for pt. Architectural Designer indicated to mom that she can call sba underwriter if she has additional questions after she processes the events of the last day or so. Also provided patient relations # per mom's request. * Shaylee Long LICSW - 02/16/2018 11:23 AM CDT Architectural Designer called CPS--reported made last evening was not assigned ([phone]) * Shaneka Vidal - 02/15/2018 8:32 PM CDT Images from the original note were not included. 02/15/182026 Patient Belongings Did you bring any home meds/supplements to the hospital? No Patient Belongings clothing;shoes Disposition of Belongings Sent to security per site process;Kept with patient Second Staff AYAN With pt: black/camo sweatshirt, black leggings, 2 pairs of socks, blue bra In pt locker: string from sweatshirt, brown shoes. Sent to security: Samsung phone and gold colored bracelet. A Admission: I am responsible for any personal items that are not sent to the safe or pharmacy. [facility] is not responsible for loss, theft or damage of any property in my possession. Signature: Date: Time: Staff Signature: Date: Time: 2nd Staff person, if patient is unable/unwilling to sign: Signature: Date: Time: Discharge: [facility] has returned all of my personal belongings: Signature: Date: Time: Staff Signature: Date: Time: documented in this encounter H&P Notes * Myra Cevallos MD - 02/16/2018 1:59 PM CDT History and Physical Lisa Willis Age: [age] year old Date of : 2000 Date of Admission: 02/15/2018 Contacts: patient and electronic chart Assessment: This patient is a 17 year old female without a past psychiatric history who presents withSI. Significant symptoms include SI. There is genetic loading for mood and CD. Medical history does not appear to be significant . Substance use does not appear to be playing a contributing role in the patient's presentation. Patient appears to cope with stress/frustration/emotion by withdrawing and acting out to self. Stressors include chronic mental health issues and family dynamics. Patient's support system includes family and outpatient team. Risk for harm is moderate. Risk factors: SI, family history and family dynamics Protective factors: family Hospitalization needed for safety and stabilization. Diagnoses and Plan: Principal Diagnosis: MDD, recurrent, moderate, Unit: 7AE Attending: Mart Medications: risks/benefits was not discussed with her mother Of note, in ER, patient was placed on 72 hour hold. It was reported that they could not reach her mother, but her mother actually stayed in ER for 2 hours, per mom, but was not allowed to see the patient, as pt refused to see her mother and step-father. Soon after my examination in the morning of 02/16, her mother wanted the patient to be discharged. Laboratory/Imaging: - COMP, CBC, TSH, lipids WNL, Upreg neg, UDS neg and Vit D 14 Consults: - none Patient will be treated in therapeutic milieu with appropriate individual and group therapies as described. Family Assessment pending Secondary psychiatric diagnoses of concern this admission: None Medical diagnoses to be addressed this admission: None Relevant psychosocial stressors: family dynamics Legal Status: 72-h Hold signed on 02/15/2018 Safety Assessment: Checks: Status 15 Precautions: Suicide Pt has not required locked seclusion or restraints in the past 24 hours to maintain safety, please refer to executive account manager for further details. The risks, benefits, alternatives and side effects have been discussed and are understood by the patient and other caregivers. Anticipated Disposition/Discharge Date: in 5-7 days from admit Target symptoms to stabilize: SI and depressed Target disposition: home Attestation: Patient has been seen and evaluated by me, Myra Cevallos MD Chief Complaint: History is obtained from the patient History of Present Illness: Patient was admitted from ER for SI. Symptoms have been present for 10 years. , Depression started when pt was 7 yo . She cannot identify significant trigger. She has rarely had SI on and off. Yesterday, for no clear reason, ( per pt) depressed mood and SI got worse and she had SI with a plan to jump off the window of 3rd story at school, or jump in front of a car. She went to talk to a school counselor and told about this, then she was brought to ER by ambulance. In ER, she was afraid that mom and step-dad would get made at me, so she refused to see them when they came to ER. For unclear reasons, Mom did not have any contact with ER staff then patient was placed on 72 hour hold, brought to the unit. She states that her appetite and sleep has been ok. She has no history of SA. She denies sense of hopelessness. She denies psychotic symptoms. She denied SI on my examination on the morning of 02/16 and said she just wants to go home. She denies history of abuse. She denies significant problems with mother or step-father. Her mother used to drink a lot of alcohol, but does not drink as much. Psychiatric Review of Systems: Depressive Sx: Low mood and SI DMDD: None Manic Sx: none Anxiety Sx: worries PTSD: none Psychosis: none ADHD: none ODD/Conduct: none ASD: none ED: none RAD:none Cluster B: poor coping Medical Review of Systems: The 10 point Review of Systems is negative other than noted in the HPI Psychiatric History: No history of psychiatric illness Substance Use History: No h/o substance use/abuse Past Medical/Surgical History: This patient has no significant past medical history This patient has no significant past surgical history No History of: head trauma with or without loss of consciousness and seizures Primary Care Physician: Ness Conroy No Known Allergies Medications: Prescriptions Prior to Admission Medication Sig Dispense Refill Last Dose ??? LANsoprazole (PREVACID) 30 MG CR capsule Take 30 mg by mouth daily 4 days ago Social History: Early history: Parents when pt was 2 yo. Pt has never known her biological father. No contact with him. Educational history: 10 th grade does not have an IEP Abuse history: denies Guns: no Current living situation: Lives with mother and step-father Family History: Depression: maternal grandmother Chemical dependency: mother Labs: Recent Results (from the past 24 hour(s)) Drug abuse screen 6 urine (chem dep) ([employer]) Collection Time: 02/15/18 2:43 PM Result Value Ref Range Amphetamine Qual Urine Negative NEG^Negative Barbiturates Qual Urine Negative NEG^Negative Benzodiazepine Qual Urine Negative NEG^Negative Cannabinoids Qual Urine Negative NEG^Negative Cocaine Qual Urine Negative NEG^Negative Ethanol Qual Urine Negative NEG^Negative Opiates Qualitative Urine Negative NEG^Negative HCG qualitative urine Collection Time: 02/15/18 2:43 PM Result Value Ref Range HCG Qual Urine Negative NEG^Negative TSH with free T4 reflex Collection Time: 02/16/18 8:23 AM Result Value Ref Range TSH 1.75 0.40 - 4.00 mU/L CBC with platelets differential Collection Time: 02/16/18 8:23 AM Result Value Ref Range WBC 9.1 4.0 - 11.0 10e9/L RBC Count 4.44 3.7 - 5.3 10e12/L Hemoglobin 13.0 11.7 - 15.7 g/dL Hematocrit 38.4 35.0 - 47.0 % MCV 87 77 - 100 fl MCH 29.3 26.5 - 33.0 pg MCHC 33.9 31.5 - 36.5 g/dL RDW 13.4 10.0 - 15.0 % Platelet Count 464 (H) 150 - 450 10e9/L Diff Method Automated Method % Neutrophils 64.1 % % Lymphocytes 27.2 % % Monocytes 6.5 % % Eosinophils 1.8 % % Basophils 0.2 % % Immature Granulocytes 0.2 % Nucleated RBCs 0 0 /100 Absolute Neutrophil 5.8 1.3 - 7.0 10e9/L Absolute Lymphocytes 2.5 1.0 - 5.8 10e9/L Absolute Monocytes 0.6 0.0 - 1.3 10e9/L Absolute Eosinophils 0.2 0.0 - 0.7 10e9/L Absolute Basophils 0.0 0.0 - 0.2 10e9/L Abs Immature Granulocytes 0.0 0 - 0.4 10e9/L Absolute Nucleated RBC 0.0 Lipid panel reflex to direct LDL Collection Time: 02/16/18 8:23 AM Result Value Ref Range Cholesterol 143 <170 mg/dL Triglycerides 66 <90 mg/dL HDL Cholesterol 51 >45 mg/dL LDL Cholesterol Calculated 79 <110 mg/dL Non HDL Cholesterol 92 <120 mg/dL Comprehensive metabolic panel Collection Time: 02/16/18 8:23 AM Result Value Ref Range Sodium 141 133 - 144 mmol/L Potassium 3.8 3.4 - 5.3 mmol/L Chloride 108 96 - 110 mmol/L Carbon Dioxide 25 20 - 32 mmol/L Anion Gap 8 3 - 14 mmol/L Glucose 79 70 - 99 mg/dL Urea Nitrogen 9 7 - 19 mg/dL Creatinine 0.69 0.50 - 1.00 mg/dL GFR Estimate >90 >60 mL/min/1.7m2 GFR Estimate If Black >90 >60 mL/min/1.7m2 Calcium 9.2 9.1 - 10.3 mg/dL Bilirubin Total 0.5 0.2 - 1.3 mg/dL Albumin 3.7 3.4 - 5.0 g/dL Protein Total 7.9 6.8 - 8.8 g/dL Alkaline Phosphatase 87 40 - 150 U/L ALT 8 0 - 50 U/L AST 13 0 - 35 U/L BP 120/78 (BP Location: Left arm) Pulse 68 Temp 97.7 ??F (36.5 ??C) (Oral) Resp 16 Ht 1.626m (5' 4) Wt 67.1 kg (147 lb 14.9 oz) SpO2 99% BMI 25.39 kg/m2 Weight is 147 lbs 14.86 oz Body mass index is 25.39 kg/(m^2). Psychiatric Examination: Appearance: awake, alert Attitude: somewhat cooperative Eye Contact: fair Mood: depressed Affect: mood congruent Speech: clear, coherent Psychomotor Behavior: no evidence of tardive dyskinesia, dystonia, or tics and intact station, gaitand muscle tone Thought Process: goal oriented Associations: no loose associations Thought Content: no evidence of psychotic thought, passive suicidal ideation present, no auditory hallucinations present and no visual hallucinations present Insight: fair Judgment: limited Oriented to: time, person, and place Attention Span and Concentration: fair Recent and Remote Memory: fair Language: Able to name objects Fund of Knowledge: appropriate Muscle Strength and Tone: normal Gait and Station: Normal Physical Exam: I have reviewed the physical done by ER physician Tony Edgar MD on 02/15/2018, there are no medication or medical status changes, and I agree with their original findings documented in this encounter ED Notes * Bhavesh Sewell RN - 02/15/2018 7:45 PM CDT ED to Behavioral Floor Handoff SITUATION Lisa Willis is a 17 year old female who speaks [place]ar[place] and lives in a home with family members The patient arrived in the ED by ambulance from school with a complaint of Suicidal .The patient's current symptoms started/worsened 1 day(s) ago and during this time the symptoms have increased. In the ED, pt was diagnosed with Final diagnoses: Depression, unspecified depression type Initial vitals were: BP: 113/67 Pulse: 77 Temp: 99.7 ??F (37.6 ??C) Resp: 16 SpO2: 96 % -------- Is the patient diabetic? No If yes, last blood glucose? -- If yes, was this treated in the ED? -- -------- Is the patient inebriated (ETOH) No or Impaired on other substances? No MSSA done? N/A Last MSSA score: -- Were withdrawal symptoms treated? N/A Does the patient have a seizure history? No. If yes, date of most recent seizure-- -------- Is the patient patient experiencing suicidal ideation? reports suicidal ideation with out intentionor a suicidal plan Homicidal ideation? denies current or recent homicidal ideation or behaviors. Self-injurious behavior/urges? reports current or recent self injurious behavior or ideation including jumping of 3rd floor building. ------ Was pt aggressive in the ED No Was a code called No Is the pt now cooperative? Yes ------- Meds given in ED: Medications - No data to display Family present during ED course? No Family currently present? No BACKGROUND Does the patient have a cognitive impairment or developmental disability? No Allergies: No Known Allergies. Social demographics are Social History Social History ??? Marital status: Single Spouse name: N/A ??? Number of children: N/A ??? Years of education: N/A Social History Main Topics ??? Smoking status: Never Smoker ??? Smokeless tobacco: Never Used ??? Alcohol use No ??? Drug use: No ??? Sexual activity: Not Asked Other Topics Concern ??? None Social History Narrative ASSESSMENT Labs results Labs Ordered and Resulted from Time of ED Arrival Up to the Time of Departure from the ED DRUG ABUSE SCREEN 6 CHEM DEP URINE ([facility]) HCG QUALITATIVE URINE Imaging Studies: No results found for this or any previous visit (from the past 24 hour(s)). Most recent vital signs BP 113/67 (BP Location: Left arm) Pulse 77 Temp 99.7 ??F (37.6 ??C) (Oral) Resp 16 SpO2 96% Abnormal labs/tests/findings requiring intervention:--- Pain control: good Nausea control: pt had none RECOMMENDATION Are any infection precautions needed (MRSA, VRE, etc.)? No If yes, what infection? -- --- Does the patient have mobility issues? independently. If yes, what device does the pt use? --- --- Is patient on 72 hour hold or commitment? Yes If on 72 hour hold, have hold and rights been given to patient? Yes Are admitting orders written if after 10 p.m. ?N/A Tasks needing to be completed:--- Bhavesh Sewell [phone] [facility] [phone] [facility] ED * Tony Edgar MD - 02/15/2018 3:03 PM CDT This patient was identified by our triage system as having a potential for self- harm. I have performed a brief in-person assessment of the patient???s needs for their safety while in our Emergency Department. Based on my preliminarily assessment, I have no reason to believe the patient is in imminent danger of self-harm while undergoing their evaluation. I believe the patient will be safe during their evaluation in the Emergency Department under our established protocols without 1:1 supervisionat this time. MD Herve Gómez Ford Christian, MD 02/15/18 1503 * Arlin Brennan - 02/15/2018 2:53 PM CDT Safety search completed by staff. Compliant with search. Belongings placed in storage. UA was collected and sent to lab. * Codey Gunderson RN - 02/15/2018 2:33 PM CDT Bed: ED10 Expected date: 02/15/18 Expected time: 2:30 PM Means of arrival: Comments: [id number] 17yo F si * Tony Edgar MD - 02/15/2018 2:33 PM CDT History Chief Complaint Patient presents with ??? Suicidal HPI Lisa Willis is a 17 year old female who presents from her school after a behavioral evaluation found the patient be with suicidal ideation and an active plan of either jumping out of a third story window or jumping in front of a bus in order to end her life. Please see the behavioral assessmentfor more details. Part of the assessment also identified the patient's mother has potentially verbally abusive, threatening and that the patient is frightened of her mother. Here the patient states that all this is in the past. She states she is not frightened of her mother currently and states also that she does not want to see her mother. Patient denies any medical problems at this time and denies any fevers coughing vomiting diarrhea UTI symptoms or possibility of I have reviewed the Medications, Allergies, Past Medical and Surgical History, and Social History in the [facility] system. History reviewed. No pertinent past medical history. No current facility-administered medications on file prior to encounter. No current outpatient prescriptions on file prior to encounter. No Known Allergies Social History Social History ??? Marital status: Single Spouse name: N/A ??? Number of children: N/A ??? Years of education: N/A Occupational History ??? Not on file. Social History Main Topics ??? Smoking status: Never Smoker ??? Smokeless tobacco: Never Used ??? Alcohol use No ??? Drug use: No ??? Sexual activity: Not on file Other Topics Concern ??? Not on file Social History Narrative History reviewed. No pertinent surgical history. No family history on file. Review of Systems All other systems reviewed and are negative. Physical Exam BP: 113/67 Pulse: 77 Temp: 99.7 ??F (37.6 ??C) Resp: 16 SpO2: 96 % Physical Exam Constitutional: She is oriented to person, place, and time. Good eye contact, alert and conversant HENT: Head: Atraumatic. Eyes: EOM are normal. Pupils are equal, round, and reactive to light. Neck: Neck supple. Cardiovascular: Normal heart sounds. Pulmonary/Chest: Breath sounds normal. Abdominal: Soft. There is no tenderness. Musculoskeletal: She exhibits no edema, tenderness or deformity. Neurological: She is alert and oriented to person, place, and time. No cranial nerve deficit. Grossly intact and symmetric Skin: Skin is warm. Psychiatric: Anxious depressed but with good eye contact ED Course ED Course Procedures Results for orders placed or performed during the hospital encounter of 02/15/18 Drug abuse screen 6 urine (chem dep) ([facility]) Result Value Ref Range Amphetamine Qual Urine Negative NEG^Negative Barbiturates Qual Urine Negative NEG^Negative Benzodiazepine Qual Urine Negative NEG^Negative Cannabinoids Qual Urine Negative NEG^Negative Cocaine Qual Urine Negative NEG^Negative Ethanol Qual Urine Negative NEG^Negative Opiates Qualitative Urine Negative NEG^Negative HCG qualitative urine Result Value Ref Range HCG Qual Urine Negative NEG^Negative Labs Ordered and Resulted from Time of ED Arrival Up to the Time of Departure from the ED DRUG ABUSE SCREEN 6 CHEM DEP URINE ([facility]) HCG QUALITATIVE URINE Assessments & Plan (with Medical Decision Making) I have reviewed the nursing notes. It was explained to the patient that she will be placed on a medical hold and admitted to psychiatry because of her behavioral assessment was done at school. In a separate room this was also explained to the parents. At this time the patient was placed on a 72 hour hold and a bed was arranged upstairs on psychiatry. I have reviewed the findings, diagnosis, and plan with the patient. Final diagnoses: Depression, unspecified depression type Tony Edgar MD 02/15/2018 [facility], [facility] EMERGENCY DEPARTMENT Tony Edgar MD 02/15/18 1706 documented in this encounter Miscellaneous Notes * Pharmacy-Admission Medication History - Funmi Acosta [facility] - 02/15/2018 5:10 PM CDT Admission medication history interview status for the 02/15/2018 admission is complete. See [facility] admission navigator for allergy information, pharmacy and prior to admission medications. Medication history interview sources: Patient, [facility] Pharmacy ([place]; [phone]) Changes made to EQUIPMENT INSTALLER medication list (reason) Added: lansoprazole (per [facility]) Deleted: omeprazole Changed: none Additional medication history information (including reliability of information, actions taken by pharmacist): The patient was a moderately reliable historian. This sba underwriter spoke with the outpatient [facility] pharmacist regarding her prescription filling history. Prior to Admission medications Medication Sig Last Dose Taking? Auth Provider LANsoprazole (PREVACID) 30 MG CR capsule Take 30 mg by mouth daily 4 days ago Yes Unknown, Entered By History Medication history completed by: [facility] [phone] * Plan of Care - Shital De La Cruz RN - 02/15/2018 4:55 PM CDT Pt admitted SI, plan t jump off 3rd story building at school or get into a car accident. No mental health meds, no MH inpt history. Pt is cooperative with search process, no contraband found on pt. Pt is admitted on 72 hour hold. This RN attempted to call mom using phone number listed on face sheet, but number has been disconnected. Pt unsure what mom's phone number is. Pt denies allergies aside from pollen (seasonal). Pt states she does not take scheduled medications. Pt states the academics of school are stressful. Pt also stated, I would never do it (complete suicide) because I want to goto [employer] No intake assessment scheduled due to not being able to get a hold of mom. Communication record not complete due to not being able to reach mom. Utox and HCG negative. Pt has history of family therapy. Pt has no history of suicide attempts. Pt stated that her mom stabbed herself in the thigh 3-4 years ago. Pt stated pt saw bloody clothing in bathroom, asked mom, and mom broke down and told me. Pt has chronic abdominal pain per documentation. When pt was askedabout this, she refers to it as heartburn. documented in this encounter Plan of Treatment Not on file documented as of this encounter Procedures Procedure Name Priority Date/Time Associated Diagnosis Comments CBC WITH PLATELETS & DIFFERENTIAL Routine 02/16/2018 8:23 AM CDT Depression, unspecified depression type VITAMIN D DEFICIENCY SCREENING Routine 02/16/2018 8:23 AM CDT Depression, unspecified depression type TSH WITH FREE T4 REFLEX Routine 02/16/2018 8:23 AM CDT Depression, unspecified depression type LIPID REFLEX TO DIRECT LDL PANEL Routine 02/16/2018 8:23 AM CDT Depression, unspecified depression type COMPREHENSIVE METABOLIC PANEL Routine 02/16/2018 8:23 AM CDT Depression, unspecified depression type HCG QUALITATIVE URINE Routine 02/15/2018 2:43 PM CDT Depression, unspecified depression type DRUG ABUSE SCREEN 6 CHEM DEP URINE ([facility]) STAT 02/15/2018 2:43 PM CDT documented in this encounter Results * Comprehensive metabolic panel (02/16/2018 8:23 AM CDT) Sodium 141 133 - 144 mmol/L 02/16/2018 9:46 AM CDT [facility] Potassium 3.8 3.4 - 5.3 mmol/L 02/16/2018 9:46 AM CDT [facility] Chloride 108 96 - 110 mmol/L 02/16/2018 9:46 AM CDT [facility] Carbon Dioxide 25 20 - 32 mmol/L 02/16/2018 9:46 AM CDT [facility] Anion Gap 8 3 - 14 mmol/L 02/16/2018 9:46 AM CDT [facility] Glucose 79 70 - 99 mg/dL 02/16/2018 9:46 AM CDT [facility] Urea Nitrogen 9 7 - 19 mg/dL 02/16/2018 9:46 AM CDT [facility] Creatinine 0.69 0.50 - 1.00 mg/dL 02/16/2018 9:46 AM CDT [facility] GFR Estimate >90 >60 mL/min/1.7 m2 02/16/2018 9:46 AM T [facility] Comment:Non GFR Calc GFR Estimate If Black >90 >60 mL/min/1.7 m2 02/16/2018 9:46 AM CDT [facility] Comment: GFR Calc Calcium 9.2 9.1 - 10.3 mg/dL 02/16/2018 9:46 AM CDT [facility] Bilirubin Total 0.5 0.2 - 1.3 mg/dL 02/16/2018 9:46 AM T [facility] Albumin 3.7 3.4 - 5.0 g/dL 02/16/2018 9:46 AM T [facility] Protein Total 7.9 6.8 - 8.8 g/dL 02/16/2018 9:46 AM T [facility] Alkaline Phosphatase 87 40 - 150 U/L 02/16/2018 9:46 AM T [facility] ALT 8 0 - 50 U/L 02/16/2018 9:46 AM T [facility] AST 13 0 - 35 U/L 02/16/2018 9:46 AM T [facility] Blood specimen (specimen) 02/16/2018 8:23 AM CDT 02/16/2018 8:25 AM CDT us Myra Cevallos MD LAB - BLOOD ORDERABLES Final Result [facility] [address] [place] [address] * Lipid panel reflex to direct LDL (02/16/2018 8:23 AM CDT) Cholesterol 143 <170 mg/dL 02/16/2018 9:46 AM CDT [facility] Triglycerides 66 <90 mg/dL 02/16/2018 9:46 AM CDT [facility] HDL Cholesterol 51 >45 mg/dL 8 9:46 AM CDT [facility] LDL Cholesterol Calculated 79 <110 mg/dL 02/16/2018 9:46 AM CDT [facility] Non HDL Cholesterol 92 <120 mg/dL 02/16/2018 9:46 AM CDT [facility] Blood specimen (specimen) 02/16/2018 8:23 AM CDT 02/16/2018 8:25 AM CDT us Myra Cevallos MD LAB - BLOOD ORDERABLES Final Result Performing Organization Address City/State/[facility] Co de Phone Number [facility] [address] [place] [address] * (ABNORMAL) CBC with platelets differential (02/16/2018 8:23 AM CDT) WBC 9.1 4.0 - 11.0 10e9/L 02/16/2018 9:47 AM CDT [facility] RBC Count 4.44 3.7 - 5.3 10e12/L 02/16/2018 9:47 AM CDT [facility] Hemoglobin 13.0 11.7 - 15.7 g/dL 02/16/2018 9:47 AM CDT [facility] Hematocrit 38.4 35.0 - 47.0 % 02/16/2018 9:47 AM CDT [facility] MCV 87 77 - 100 fl 02/16/2018 9:47 AM CDT [facility] MCH 29.3 26.5 - 33.0 pg 02/16/2018 9:47 AM CDT [facility] MCHC 33.9 31.5 - 36.5 g/dL 02/16/2018 9:47 AM CDT [facility] RDW 13.4 10.0 - 15.0 % 02/16/2018 9:47 AM CDT [facility] Platelet Count 464(H) 150 - 450 10e9/L 02/16/2018 9:47 AM CDT [facility] Diff Method Automated Method 02/16/2018 9:47 AM CDT [facility] % Neutrophils 64.1 % 02/16/2018 9:47 AM CDT [facility] % Lymphocytes 27.2 % 02/16/2018 9:47 AM CDT [facility] % Monocytes 6.5 % 02/16/2018 9:47 AM CDT [facility] % Eosinophils 1.8 % 02/16/2018 9:47 AM CDT [facility] % Basophils 0.2 % 02/16/2018 9:47 AM CDT [facility] % Immature Granulocytes 0.2 % 02/16/2018 9:47 AM CDT [facility] Nucleated RBCs 0 0 /100 02/16/2018 9:47 AM CDT [facility] Absolute Neutrophil 5.8 1.3 - 7.0 10e9/L 02/16/2018 9:47 AM CDT [facility] Absolute Lymphocytes 2.5 1.0 - 5.8 10e9/L 02/16/2018 9:47 AM CDT [facility] Absolute Monocytes 0.6 0.0 - 1.3 10e9/L 02/16/2018 9:47 AM CDT [facility] Absolute Eosinophils 0.2 0.0 - 0.7 10e9/L 02/16/2018 9:47 AM CDT [facility] Absolute Basophils 0.0 0.0 - 0.2 10e9/L 02/16/2018 9:47 AM CDT [facility] Abs Immature Granulocytes 0.0 0 - 0.4 10e9/L 02/16/2018 9:47 AM CDT [facility] Absolute Nucleated RBC 0.0 02/16/2018 9:47 AM T [facility] Blood specimen (specimen) 02/16/2018 8:23 AM CDT 02/16/2018 8:25 AM CDT us Myra Cevallos MD LAB - BLOOD ORDERABLES Final Result [address] [address] * TSH with free T4 reflex (02/16/2018 8:23 AM CDT) TSH 1.75 0.40 - 4.00 mU/L 02/16/2018 9:46 AM CDT [facility] Blood specimen (specimen) 02/16/2018 8:23 AM CDT 02/16/2018 8:25 AM CDT us Myra Cevallos MD LAB - BLOOD ORDERABLES Final Result Performing Organization Address [facility] Co de Phone Number [address] [address] * (ABNORMAL) Vitamin D (02/16/2018 8:23 AM CDT) Vitamin D Deficiency screening 14(L) 20 - 75 ug/L 02/16/2018 2:51 PM CDT [facility] Comment: Season, race, dietary intake, and treatment affect the concentration of [id number] D. Values may decrease during winter months and increase during summer months. Values 20-29 ug/L may indicate Vitamin D insufficiency and values <20 ug/L may indicate Vitamin D deficiency. Vitamin D determination is routinely performed by an immunoassay specific for 25 hydroxyvitamin D3. If an individual is on vitamin D2 (ergocalciferol) supplementation, please specify 25 OH vitamin D2 and D3 level determination by LCMSMS test [id number]. Blood specimen (specimen) 02/16/2018 8:23 AM CDT 02/16/2018 8:25 AM CDT us Myra Cevallos MD LAB - BLOOD ORDERABLES Final Result Performing Organization Address City/[facility]/ZIP Co de Phone Number [facility] [address] [place] [address] * HCG qualitative urine (02/15/2018 2:43 PM CDT) HCG Qual Urine Negative NEG^Negat clara 02/15/2018 4:52 PM CDT [facility] Comment: This test is for screening purposes. Results should be interpreted along with the clinical picture. Confirmation testing is available if warranted by ordering [id number], HCG Quantitative . 02/15/2018 2:43 PM CDT 02/15/2018 3:17 PM CDT us Domingo Monroy MD LAB - URINE ORDERABLES Final Result [facility] [address] [place] [address] * Drug abuse screen 6 urine (chem dep) ([facility]) (02/15/2018 2:43 PM CDT) Amphetamine Qual Urine Negative NEG^Negat clara 02/15/2018 3:49 PM CDT [facility] Comment:Cutoff for a negativ e amphetamine is 500 ng/mL or less. Barbiturates Qual Urine Negative NEG^Negat clara 02/15/2018 3:49 PM CDT [facility] Comment:Cutoff for a negativ e barbiturate is 200 ng/mL or less. Benzodiazepine Qual Urine Negative NEG^Negat clara 02/15/2018 3:49 PM CDT [facility] Comment:Cutoff for a negativ e benzodiazepine is 200 ng/mL or less. Cannabinoids Qual Urine Negative NEG^Negat clara 02/15/2018 3:49 PM CDT [facility] Comment:Cutoff for a negativ e cannabinoid is 50 ng/mL or less. Cocaine Qual Urine Negative NEG^Negat clara 02/15/2018 3:49 PM CDT [facility] Comment:Cutoff for a negativ e cocaine is 300 ng/mL or less. Ethanol Qual Urine Negative NEG^Negat clara 02/15/2018 3:49 PM CDT [facility] Comment:Cutoff for a negativ e urine ethanol is 0.05 g/dL or less Opiates Qualitative Urine Negative NEG^Negat clara 02/15/2018 3:49 PM CDT [facility] Comment:Cutoff for a negativ e opiate is 300 ng/mL or less. Urine specimen (specimen) URINE SPECIMEN / Unknown 02/15/2018 2:43 PM CDT 02/15/2018 3:17 PM CDT us Domingo Monroy MD LAB - URINE ORDERABLES Final Result [facility] [address] [place] [address] documented in this encounter Visit Diagnoses Diagnosis Depression, unspecified depression type Suicidal ideation documented in this encounter Administered Medications Inactive Administered Medications - up to 3 most recent administrations Medication Order MAR Action Action Date Dose Rate Site diphenhydrAMINE (BENADRYL) capsule 25 mg 25 mg, Oral, EVERY 6 HOURS PRN, other, Extrapyramidal Side Effects, Starting on Mon02/15/18 at 2110 diphenhydrAMINE (BENADRYL) injection 25 mg 25 mg, Intramuscular, EVERY 6 HOURS PRN, other, Extrapyramidal Side Effects, Administer over 1-2 Minutes, Starting on Mon02/15/18 at 2110, For ordered doses up to 50 mg, give IV Push undiluted. Give each 25mg over a minimum of 1 minute. Extend in non-emergency hydrOXYzine (ATARAX) tablet 10 mg 10 mg, Oral, EVERY 8 HOURS PRN, anxiety, Starting on Mon02/15/18 at 2110 LANsoprazole (PREVACID) CR capsule 30 mg 30 mg, Oral, DAILY PRN, heart burn, Starting on Mon02/15/18 at 2133 lidocaine (LMX4) kit Topical, ONCE PRN, other, mild pain; for blood draw anticipated pain., Starting on Mon02/15/18 at 2110, For 1 dose, Apply to affected area for pain control 30 minutes before blood collection Max: 2.5 gm (1/2 of a 5 gm tube) melatonin tablet 3 mg 3 mg, Oral, AT BEDTIME PRN, insomnia, Starting on Mon02/15/18 at 2126 OLANZapine (zyPREXA) injection 5 mg 5 mg, Intramuscular, EVERY 6 HOURS PRN, agitation, severe. Not to exceed 20 mg in 24 hours., Starting on Mon02/15/18 at 2110, Dissolve the contents of the 10 mg vial using 2.1 mL of Sterile Water for Injection to provide a solution containing 5 mg/mL of olanzapine. Withdraw the ordered dose from vial. Use immediately (within 1 hour) after reconstitution. Discard any unused portion. OLANZapine zydis (zyPREXA) ODT tab 5 mg 5 mg, Oral, EVERY 6 HOURS PRN, agitation, severe. Not to exceed 20 mg in 24 hours., Starting on Mon02/15/18 at 2110, Combined IM and PO doses may significantly increase the risk of orthostatic hypotension at 30 mg per day or higher. With dry hands, peel back foil backing and gently remove tablet; do not push oral disintegrating tablet through foil backing; administer immediately on tongue and oral disintegrating tablet dissolves in seconds; then swallow with saliva; liquid not required. documented in this encounter Active and Recently Administered Medications Times are shown in CDT. PRN Medication Order 02/14/2018 02/15/2018 02/16/2018 diphenhydrAMINE (BENADRYL) capsule 25 mg(Linked Group 1) 25 mg, Oral, EVERY 6 HOURS PRN, other, Extrapyramidal Side Effects, Starting on Mon02/15/18 at 2110 diphenhydrAMINE (BENADRYL) injection 25 mg(Linked Group 1) 25 mg, Intramuscular, EVERY 6 HOURS PRN, other, Extrapyramidal Side Effects, Administer over 1-2 Minutes, Starting on Mon02/15/18 at 2110, For ordered doses up to 50 mg, give IV Push undiluted. Give each 25mg over a minimum of 1 minute. Extend in non-emergency hydrOXYzine (ATARAX) tablet 10 mg 10 mg, Oral, EVERY 8 HOURS PRN, anxiety, Starting on Mon02/15/18 at 2110 LANsoprazole (PREVACID) CR capsule 30 mg 30 mg, Oral, DAILY PRN, heart burn, Starting on Mon02/15/18 at 2133 lidocaine (LMX4) kit Topical, ONCE PRN, other, mild pain; for blood draw anticipated pain., Starting on Mon02/15/18 at 2110, For 1 dose, Apply to affected area for pain control 30 minutes before blood collection Max: 2.5 gm (1/2 of a 5 gm tube) melatonin tablet 3 mg 3 mg, Oral, AT BEDTIME PRN, insomnia, Starting on Ginny 02/15/18 at 2126 OLANZapine (zyPREXA) injection 5 mg(Linked Group 2) 5 mg, Intramuscular, EVERY 6 HOURS PRN, agitation, severe. Not to exceed 20 mg in 24 hours., Starting on Ginny 02/15/18 at 2110, Dissolve the contents of the 10 mg vial using 2.1 mL of Sterile Water for Injection to provide a solution containing 5 mg/mL of olanzapine. Withdraw the ordered dose from vial. Use immediately (within 1 hour) after reconstitution. Discard any unused portion. OLANZapine zydis (zyPREXA) ODT tab 5 mg(Linked Group 2) 5 mg, Oral, EVERY 6 HOURS PRN, agitation, severe. Not to exceed 20 mg in 24 hours., Starting on Ginny 02/15/18 at 2110, Combined IM and PO doses may significantly increase the risk of orthostatic hypotension at 30 mg per day or higher. With dry hands, peel back foil backing and gently remove tablet; do not push oral disintegrating tablet through foil backing; administer immediately on tongue and oral disintegrating tablet dissolves in seconds; then swallow with saliva; liquid not required. Linked Groups Order Group 1: diphenhydrAMINE (BENADRYL) capsule 25 mgJump to med 25 mg, Oral, EVERY 6 HOURS PRN, other, Extrapyramidal Side Effects, Starting on Ginny 02/15/18 at 2110 Or diphenhydrAMINE (BENADRYL) injection 25 mgJump to med 25 mg, Intramuscular, EVERY 6 HOURS PRN, other, Extrapyramidal Side Effects, Administer over 1-2 Minutes, Starting on Ginny 02/15/18 at 2110, For ordered doses up to 50 mg, give IV Push undiluted. Give each 25mg over a minimum of 1 minute. Extend in non-emergency Group 2: OLANZapine zydis (zyPREXA) ODT tab 5 mgJump to med 5 mg, Oral, EVERY 6 HOURS PRN, agitation, severe. Not to exceed 20 mg in 24 hours., Starting on Ginny 02/15/18 at 2110, Combined IM and PO doses may significantly increase the risk of orthostatic hypotension at 30 mg per day or higher. With dry hands, peel back foil backing and gently remove tablet; do not push oral disintegrating tablet through foil backing; administer immediately on tongue and oral disintegrating tablet dissolves in seconds; then swallow with saliva; liquid not required. Or OLANZapine (zyPREXA) injection 5 mgJump to med 5 mg, Intramuscular, EVERY 6 HOURS PRN, agitation, severe. Not to exceed 20 mg in 24 hours., Starting on Ginny 02/15/18 at 2111, Dissolve the contents of the 10 mg vial using 2.1 mL of Sterile Water for Injection to provide a solution containing 5 mg/mL of olanzapine. Withdraw the ordered dose from vial. Use immediately (within 1 hour) after reconstitution. Discard any unused portion. documented in this encounter Care Teams Test Desk Trouble Locator Relationship Specialty Start Date End Date Ness Conroy MD PCP - General Pediatrics 05/26/17 10/25/22 documented as of this encounter
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
--- OUTSIDE RECORDS SUMMARY | 2024-09-18 10:45 | XMS_ITS | Encounter Summary ---
Author Organization [facility] Address [address] [place] [address] Care Team Providers Care Conveyor Loader Name Role Phone Channing Brush MD Primary Care Provider [phone] Reason for Visit * Reason Comments Pharyngitis Encounter Details Date Type Department Care Team ([facility] st Contact Info) Description 10/26/2022 7:31 AM REWINDER OPERATOR HELPER - 10/26/2022 8:49 AM REWINDER OPERATOR HELPER Emergency [facility] Emergency Dept [address] [place] [phone] Bhavesh Samaniego MD [facility] [address] [place], [place] [id number] Acute recurrent streptococcal tonsillitis Discharge Disposition: Home or Self Care Social [...] Coronavirus/COVID-19? No / Unsure 10/26/2022 7:27 AM REWINDER OPERATOR HELPER documented as of this encounter Last Filed Vital Signs Vital Sign Reading Time Taken Comments Blood Pressure 127/80 10/26/2022 8:48 AM REWINDER OPERATOR HELPER Pulse 99 10/26/2022 8:48 AM REWINDER OPERATOR HELPER Temperature 36.9 C (98.4 F) 10/26/2022 7:29 AM REWINDER OPERATOR HELPER Respiratory Rate 18 10/26/2022 8:48 AM REWINDER OPERATOR HELPER Oxygen Saturation 98% 10/26/2022 8:48 AM REWINDER OPERATOR HELPER Inhaled Oxygen Concentration - - Weight - - Height - - Body Mass Index - - documented in this encounter Discharge Instructions * Attachments The following attachments cannot be sent through Care Everywhere. * Pharyngitis, Strep (Confirmed) (Burundian) documented in this encounter Medications at Time of Discharge penicillin V (VEETID) 500 MG tablet Take 1 tablet (500 mg) by mouth 4 times daily for 7 days 28 tablet 10/26/2022 11/02/2022 dexamethasone (DECADRON) 4 MG tablet Take 2 [...] as of this encounter ED Notes * Cindy Siddiqi RN - 10/26/2022 7:44 AM CST Home thermometer given to patient. NDER OPERATOR HELPER * Yaneli Aleman RN - 10/26/2022 7:29 AM CST A&O x4. ABC's intact. Pt arrives with c/o throat pain for almost a week. Has not measured temp d/t no thermometer. NDER OPERATOR HELPER * Bhavesh Samaniego MD - 10/26/2022 7:26 AM CST History Chief Complaint: Pharyngitis The history is provided by the patient. Lisa Willis is a 22 year old female with history of recurrent strep tonsillitis who presents sore throat for 5 days. She notes that she has had sore throat, runny nose, chills, difficulty swallowing for 5 days. The symptoms feel similar to previous episodes of tonsillitis. She denies difficultybreathing, chest pain, shortness of breath, vomiting, ear pain, or any other concerns. Of note, sheis seen her PCP before and is discussed but not pursued tonsillectomy in the past. ROS: Review of Systems 10 point screen positive as per above, otherwise negative Allergies: The patient has no known allergies. Medications: Decadron Levsin Prevacid Lexapro Metformin Past Medical History: Anxiety Depression ADD Suicidal intent PCOS Social History: The patient presents to the ED alone. The patient arrived to the ED in a private vehicle. PCP: Ness Conroy Physical Exam Patient Vitals for the past 24 hrs: BP Temp Temp src Pulse Resp SpO2 10/26/22 0848 127/80 -- -- 99 18 98 % 10/26/22 0729 132/83 98.4 ??F (36.9 ??C) Oral 74 20 98 % Physical Exam Constitutional: Alert, attentive HENT: Nose: Nose normal. Mouth/Throat: Oropharynx is clear, mucous membranes are moist; 2+ tonsils erythema and exudates Normal midline uvula No peritonsillar erythema or swelling No sublingual induration, swelling or tenderness No trismus Normal dentition without gingival swelling or caries Able to extend neck without discomfort Tolerating secretions and able to breathe supine with ease Ears: Normal external ears. TMs clear bilaterally, normal external canals bilaterally. Eyes: EOM are normal. CV: Regular rate and rhythm, no murmurs, rubs or gallups. Chest: Effort normal and breath sounds normal. GI: No distension. There is no tenderness. MSK: Normal range of motion. Neurological: Alert, attentive Skin: Skin is warm and dry. Emergency Department Course Laboratory: Labs Ordered and Resulted from Time of ED Arrival to Time of ED Departure STREPTOCOCCUS A RAPID SCREEN W REFELX TO PCR - Abnormal Result Value Group A Strep antigen Positive (*) Emergency Department Course & Assessments: Interventions: Medications ibuprofen (ADVIL/MOTRIN) tablet 600 mg (600 mg Oral Given 10/26/22 0736) dexamethasone (DECADRON) tablet 8 mg (8 mg Oral Given 10/26/22 0822) Consultations/Discussion of Management or Tests: 0740: I obtained history and examined the patient as noted above. 0840: I rechecked the patient and explained findings. I believe that they are safe for discharge atthis time. Social Determinants of Health affecting care: N/A Disposition: The patient was discharged to home. Impression & Plan Medical Decision Making: This is a very pleasant 22 year old patient with history of recurrent strep tonsillitis who presented with sore throat and clinical evidence of pharyngitis. The rapid strep test is positive. There isno clinical evidence of peritonsillar abscess, retropharyngeal abscess, Lemierre's Syndrome, epiglottis, or Petar's angina. The patient's symptoms are consistent with streptococcal pharyngitis. I have recommended treatment with PCN VK. Return if increasing pain, change in voice, neck pain, vomiting, fever, or shortness of breath. Follow-up with primary physician if not improving in 3-5 days. ENTreferral made given recurrent nature. Diagnosis: ICD-10-CM 1. Acute recurrent streptococcal tonsillitis J03.01 Discharge Medications: Discharge Medication List as of 10/26/2022 8:40 AM START taking these medications Details penicillin V (VEETID) 500 MG tablet Take 1 tablet (500 mg) by mouth 4 times daily for 7 days, Disp-28 tablet, R-0, E-Prescribe Scribe Disclosure: Tyra Heredia, am serving as a scribe at 7:32 AM on 10/26/2022 to document services personally performed by Bhavesh Samaniego MD based on my observations and the provider's statements to me. 10/26/2022 Bhavesh Samaniego MD [place], John Eric, MD 10/26/22 1641 NDER OPERATOR HELPER documented in this encounter Plan of Treatment Not on file documented as of this encounter Procedures Procedure Name Priority Date/Time Associated Diagnosis Comments STREPTOCOCCUS A RAPID SCREEN W REFELX TO PCR STAT 10/26/2022 7:34 AM REWINDER OPERATOR HELPER documented in this encounter Results * (ABNORMAL) Streptococcus A Rapid Screen w/Reflex to PCR (10/26/2022 7:34 AM REWINDER OPERATOR HELPER) Group A Strep antigen Positive(A ) Negative 10/26/2022 8:31 AM REWINDER OPERATOR HELPER LABORATORY Swab STRUCTURE OF ANTERIOR PORTION OF NECK / Unknown Non-blood Collection / Unknown 10/26/2022 7:34 AM REWINDER OPERATOR HELPER 10/26/2022 7:39 AM REWINDER OPERATOR HELPER us Bhavesh Samaniego MD LAB - MICRO GENERAL ORDER JAYCE Final Result LABORATORY [facility] [address] [facility] (1st floor, no room number) [place] [address], [facility] [phone] documented in this encounter Visit Diagnoses Diagnosis Acute recurrent streptococcal tonsillitis Streptococcal sore throat documented in this encounter Administered Medications Inactive Administered Medications - up to 3 most recent administrations Medication Order MAR Action Action Date Dose Rate Site dexamethasone (DECADRON) tablet 8 mg 8 mg, Oral, ONCE, On Mon10/26/22 at 0820, For 1 dose $Given 10/26/2022 8:22 AM REWINDER OPERATOR HELPER 8 mg ibuprofen (ADVIL/MOTRIN) tablet 600 mg 600 mg, Oral, ONCE, On Mon10/26/22 at 0735, For 1 dose, Give with food. $Given 10/26/2022 7:36 AM REWINDER OPERATOR HELPER 600 mg documented in this encounter Active and Recently Administered Medications Times are shown in REWINDER OPERATOR HELPER. Scheduled Medication Order 10/24/2022 10/25/2022 10/26/2022 dexamethasone (DECADRON) tablet 8 mg (COMPLETED) 8 mg, Oral, ONCE, On Mon10/26/22 at 0820, For 1 dose 0822 ($Given - Provi nicolas: Cindy Siddiqi RN) ibuprofen (ADVIL/MOTRIN) tablet 600 mg (COMPLETED) 600 mg, Oral, ONCE, On Mon10/26/22 at 0735, For 1 dose, Give with food. 0736 ($Given - Provi nicolas: Cindy Siddiqi RN) documented in this encounter Care Teams Conveyor Loader Relationship Specialty [place] [address] [place] [address] PCP - General 10/26/22 documented as of this encounter
== END 2024-09-13 15:40 | disposition left against medical advice (07) ==
LOC: ED 15:32
PROVIDERS: PCP Family Medicine
DX: Z53.21 Procedure and treatment not carried out due to patient leaving prior to being seen by health care provider (principal)

== ENCOUNTER 2025-02-08 17:33 | Outpatient (CLI) | payer MEDICAID, SELFPAY ==
--- OUTSIDE RECORDS SUMMARY | 2025-02-08 17:36 | XMS_ITS | Clinical Summary ---
Author Organization [employer] [facility] Address [address] [place] [id number] Care Team Providers Care Hose Mender Name Role Phone Channing Brush MD Primary Care Provider [phone] Allergies No known active allergies Medications albuterol HFA (PRO-AIR; VENTOLIN; PROVENTIL) 90 mcg/actuation inhalerIndicatio ns:Bronchitis Inhale 1-2 Puffs by mouth every 4 hours if needed for Shortness Of Breath or Wheezing. 18 g 11 4 Active escitalopram oxalate (LEXAPRO) 20 mg tabletIndication s:Anxiety,Major depressive disorder, recurrent, moderate (HC) Take 1 Tablet (20 mg) by mouth once daily in the morning. 90 Tablet 3 4 Active vit 28/iron fum/folic (multivitamin folic acid 1 mg)Indications:P ositive test (HC) Take 1 Tablet by mouth once daily. 90 Tablet 3 4 Active aspirin (ECOTRIN) 81 mg enteric coated tabletIndication s:Encounter for supervision of normal first in second trimester (HC) Take 1 Tablet (81 mg) by mouth once daily with a meal. 90 Tablet 3 5 Active benzocaine-menth oL-zinc chlor (Orajel 3X Toothache-Gum) 20-0.26-0.15 % gelIndications:P ain in a tooth or teeth Apply to the lining of the mouth every 6 hours if needed (tooth pain). 11.9 g 3 5 Active Active Problems Problem Noted Date Diagnosed Date Obesity affecting in third trimester 0 12/26/2024 [facility] Supervision of high-risk 5 Overview (12/24/2024): Lisa Willis : 2000 REFERRING PROVIDER/CLINIC LOCATION/FAX #: Annelise Negrete, DO Luc[facility]emaker Ailey Primary MD approves scheduling of recommended ultrasounds/testing: Yes [facility] ULTRASOUND/TESTING PATIENT Support person name: ULTRASOUND TYPE: 12/26/24 L2 NEXT VISIT ALERTS: Final MERCEDES by LMP LMP Date: Patient's last menstrual period was 05/15/2024 (exact date). MERCEDES: 02/19/25 Early US: Date: 07/11/24 GA: 7w3d MERCEDES: 02/24/25 PrePregnancy Weight: 188 Height: 5'4.7 BMI: 31.5 PLANS & FUTURE APPOINTMENTS: ULTRASOUND/GROWTH PLAN: - Through: - Growth: Next TESTING PLAN: - Testing: Through DELIVERY PLAN: - Scheduled delivery: - Preferred delivery location: PRIMARY DIAGNOSIS: 24 y.o. Estimated Date of Delivery: 02/19/25 : HC 5% MATERNAL: BMI 37 PCOS Anxiety/depression PREVIOUS ULTRASOUNDS: 12/26/24 32w1d 12/24/24 31w5d EFW 1936 grams, percentile: 57 (PCP) ECHO: SPECIALISTS/CONSULTS: Include: Specialty MD Clinic Name Phone# [place] and ADDED TO PATIENT CARE TEAM Yes GENETICS: Declines/Not Done CARE COORDINATION: PERTINENT LABS: Labs reviewed? Yes Normal? Yes Blood type: O Rh Positive Antibody screen: Negative Preeclampsia: 12/06/24 WNL PERTINENT MEDS: Lexapro bASA PROCEDURES: IF FGR <10% or EFW <2000 grams: Add FGRPCOM PLAN OF CARE: 08/07/2024 Overview (11/14/2024): Primary OB patient of Dr. Burks Preferred name: Lisa Language/cultural preferences: Haitian OB HISTORY / PERTINENT MEDICAL HISTORY: Estimated [...] Current Prior hx 1st Issues this : Placenta previa - 1.4cm Social History : FOB/Spouse: Bin Children: None Work/school: None Substance use: marijuana and tobacco use- quit 07/02/24 COURSE: NIPT:Not done Anatomy US at 19w6d GA: Placenta Normal, posterior, Previa 1.4cm from os Sex [place] Last estimated weight: 27th percentile Additional Ultrasounds: 32w f/u for marginal previa Vaccination: Flu 2022 Tdap (27-36w) 03/25/24 BMI: Body mass index is 31.74 kg/m . Pre-eclampsia risk on aspirin? YES LABS: GBS: {gbs:[id number]} 28wk labs: GLUCOSE, GESTATIONAL SCREEN (50G)-140 CUTOFF Date Value Ref Range Status 11/11/2024 110 <140 mg/dL Final HEMOGLOBIN Date Value Ref Range Status 11/11/2024 11.3 (L) 11.7 - 15.5 g/dL Final TREPONEMA PALLIDUM Date Value Ref Range Status 11/11/2024 Non-Reactive Non-Reactive Final OB labs: Needs GC/Chlam ABORH Date Value [...] Problem Noted Date Diagnosed Date Resolved Date Placenta previa in second trimester 10/04/2024 11/21/2024 Overview (10/04/2024): Noted on ultrasound at 19w6d - Placenta previa with placental edge 1.4 cm from the internal os. Recommend repeat US at 32 weeks Attention deficit disorder w ithout mention of hyperactivity 08/15/2011 01/19/2022 Overview (01/24/2014): Concerta 36mg, 11/2011. Pediatric Controlled Substance Agreement signed 09/19/11 Mom prefers to call for refills. Moved & started new school, [employer] . Doing very well. 12/31/12 Changed to [...] still struggling, will restart medications. CHECK, ROUTINE, /CHILD 06/18/2002 09/20/2011 Encounters Date Type Department Care Team Description 02/04/2025 9:00 AM CDT [facility] [address] [place] [address] Michell Burks MD Care (37weeks 6days //back pain ) 02/03/2025 Travel 01/27/2025 10:50 AM CDT [facility] [address] [place] [address] Annelise Negrete, DO Care (36 weeks 5 days) 01/27/2025 Travel 01/23/2025 Travel 01/20/2025 8:45 AM CDT [facility] [address] [place] [address] Annelise Negrete, DO Care (35 weeks 5 days, due for GBS) 01/19/2025 Travel 01/06/2025 8:20 AM CDT [facility] [address] [place] [address] Annelise Negrete, DO Care (33 weeks 5 days) 01/06/2025 Travel 01/02/2025 Travel 12/26/2024 1:42 PM CDT - 12/26/2024 11:59 PM CDT Hospital Encounter [facility] [address] [facility] [address] [place] [address] Annelise Negrete, DO Other obesity due to excess calories affecting in third trimester (HC) (Primary Dx); Abnormal obstetric ultrasound scan; High-risk in third trimester (HC) 12/26/2024 Travel 12/24/2024 Transcribe Orders [facility] [address] [place] [address] Annelise Negrete DO 12/23/2024 9:00 AM CDT Ancillary Procedure [facility] [address] [place] [address] 12/23/2024 8:20 AM CDT OB [facility] [address] [place] [address] Annelise Negrete DO Care (31 weeks 5 days) 12/23/2024 Travel 12/18/[address] [facility] [address] [address] [place] [address] Channing Brush MD Refill Request (Escitalopram Oxalate) 12/18/2024 Travel 12/09/2024 8:20 AM ORIENTOR [facility] [address] [place] [address] Annelise Negrete DO Care (29 weeks 5 days, due for TDAP. Still has URI sx) 12/09/2024 Travel 12/06/2024 10:00 AM ORIENTOR Office Visit [facility] [address] [place] [address] Annelise Negrete DO URI (cough, sore throat, weakness, more headaches, has been around people with RSV. Ongoing for 3-4 days. ) 12/06/2024 Travel 12/04/2024 Travel 11/22/2024 E-Consult [facility] [address] [facility] [address] [place] [address] Maeve Chu MD 11/21/2024 Telephone [facility] [address] [place] [address] Annelise Negrete DO Results 11/20/2024 3:15 PM ORIENTOR Ancillary Procedure [facility] [address] [place] [address] 11/19/2024 Travel 11/18/2024 Telephone [facility] [address] [place] [address] Annelise Negrete, 11/15/2024 8:43 AM ORIENTOR - 11/15/2024 11:59 PM ORIENTOR Hospital Encounter [facility] [address] [facility] [place] [place] [address] Annelise Negrete, Fundal height high for dates (HC) 11/15/2024 Travel 11/11/2024 8:45 AM ORIENTOR OB [facility] [address] [place] [address] [address] Annelise Negrete, Care (25 weeks 5 days, having mild back pain that is alleviated with belly band. ) 11/11/2024 Travel from Last 3 Months Immunizations Immunization Administration Dates Next Due COVID-19 vaccine (Johnny-J&J) PF, MDV 1 DTaP 01/31/2006, 4,01/25/2002,11/12,2001 HIB-HepB (Comvax) 06/18/2002,2001,09/07/20 01 Hepatitis A (Peds) 04/28/2014,08/01/2011 Human Papilloma Virus Vaccine 09/01/2014, 014,01/24/2014 Inactivated Polio Vaccine 01/31/2006,07/2002,2001,09/07 Influenza, IIV4 09/30/2023,06/05/2019,12/22/2015 MENINGOCOCCAL VACCINE 2 VIAL 2MO-55YO (MENVEO) 06/05/2019,01/24/2014 MMR 01/31/2006,02/10/2004 Pneumococcal conj 7-Valent (Prevnar 7) 2,2001,2001 Tdap 12/09/2024,03/25/2024,01/24/2014 Varicella Vaccine 08/01/2011,02/10/2004 Family History Medical History [...] or isolated from those around you? 0 12/06/2024 Financial Resource Strain Answer Date R ecorded Difficulty of Paying Living Expenses 3 12/05/2023 Difficulty of Paying Living Expenses Not on file 12/05/2023 Food Insecurity Answer Date Recorded Do you worry your food will run out before you are able to buy more? 1 12/06/2024 Transportation Needs Answer Date Record ed Does lack of transportation keep you from medica l appointments? 1 12/06/2024 Does lack of transportation keep you from work, meetings or getting things that you need? 1 12/06/2024 Housing Stability Answer Date Recorded What is your housing situation today? 1 12/06/2024 Utilities Answer Date Recorded Do you have trouble paying f or utilities (for example, heat, electricity, water, phone)? 1 12/06/2024 Estimated Date of Delivery Comme nts Yes 02/19/2025 Based on last me nstrual period of 05/15/2024 (Exact Date) Sex and Gender Information Value Date Recorded Sex Assigned at Female 10/15/2024 5:46 PM ORIENTOR Legal Sex Female 5:44 AM ORIENTOR Gender Identity Female 10/15/2024 5:46 PM ORIENTOR Sexual Orientation Straight 10/15/2024 5: 46 PM ORIENTOR Obstetrics History Para Term AB IAB SAB Ectopic Multiple Livin g Live Births 1 0 0 0 0 0 0 0 0 0 0 Date Outcome GA Total Labor Labor/2nd/3rd Weight Sex Type Anes PTL Gabriella A1 A5 Name Clin Current Summary Episode Dates Number of Fetuses Estimated Date of Delivery 07/10/2024 - Present (02/08/2025) 02/19/2025 (set by Gabriela Souza RN on 07/10/2024 based on Last Menstrual Period on 05/15/2024 (Exact Date)) Dating Summary Based On MERCEDES GA Diff Last Menstrual Period on 05/15/2024 (Exact Date) 02/19/2025 Working Vitals Pregravid Weight Height TWG (As of 02/08/2025) Pregrav id BMI 85.3 kg (188 lb) 1.644 m (5' 4.72) 21.3 kg (47 lb) 31 .55 Date GA Fund Present FHR Mvmt BP Weight Edema Alb Glu Ket Dil/ Eff/Sta 5 26w2d Inpatient data not displayed here. See encounter summary. 5 32w1d Inpatient data not displayed here. See encounter summary. Notes Progress Notes - OB Encounte r - 02/04/2025 - GA:37w6d 02/04/2025 - 37w6d - Michell Burks MD S: Patient here today for routine visit. Doing well, no concerns, taking PNV's. -specific issues: obesity and nulliparity --> ASA 81 mg daily Cervical funneling - [facility] reviewed, no changes in plan Fundal height > dates - level II US at [facility] on 12/26 with growth 41st percentile Depression & anxiety - on escitalopram Positive GBS --> rec intrapartum antibiotics. Back pain. Maternity belt does not help. Tylenol 1000mg every 6 hours. Occasional painful contractions about 1 hour apart. Good movement. No vaginal bleeding/discharge, loss of fluid, dysuria or other urinary symptoms. No headache, vision changes, RUQ or epigastric pain, facial or extremity edema. O: See flowsheet. A/P: 24 y.o. at 37w6d, doing well. 1. Supervision of high risk in third trimester (HC) (Primary) - Patient describes back pain as severe, though managed with Tylenol. Discussed if pain is unmanageable could consider 39 week elective IOL next week. Patient declines at this time, will discuss with Dr Negrete if desires. - Reviewed labor and preeclampsia precautions. - Return in 1wks for OB FU. Michell Burks MD .................... 02/04/2025 9:06 AM Progress Notes - OB Encounte r - 01/27/2025 - GA:36w5d 01/27/2025 - w - Annelise Negrete DO Patient is here for routine care at 36w5d -specific issues: obesity and nulliparity --> ASA 81 mg daily Cervical funneling - MPP reviewed, no changes in plan Fundal height > dates - level II US at [facility] on 12/26 with growth 41st percentile Depression & anxiety - on escitalopram Concerns today: none. Baby is feeling a bit lower. Having some pelvic pressure. Has had a few contractions at home that are hours apart. Nothing particularly consistent. No bleeding or loss of fluid. No Headache, vision changes, edema, right upper quadrant pain. Patient is interested in cervical check today. Baby is moving well. TDaP: 12/09/24 Discussed signs/symptoms of labor and when to call Reviewed preeclampsia symptoms Reviewed positive GBS test, recommendation for antibiotics intrapartum. RTC in 1 week or sooner if needed. Annelise Negrete DO .................... 01/27/2025 10:59 AM Progress Notes - OB Encounte r - 01/20/2025 - GA:35w5d 01/20/2025 - wd - Annelise Negrete DO Patient is here for routine care at 35w5d -specific issues: obesity and nulliparity --> ASA 81 mg daily Cervical funneling - MPP reviewed, no changes in plan Fundal height > dates - level II US at [facility] on 12/26 with growth 41st percentile Concerns today: Sometimes when moving from sitting to standing, gets dizzy and has spots in her vision. Spots in vision don't last for more than a few seconds. No headaches. No RUQ pain or changes in edema. Noticing some perineal discomfort, sometimes has bleeding from skin in that area. Few contractions occasionally. No vaginal bleeding or LOF. Baby is moving well Labs today: GBS swab TDaP: 12/09/24 Discussed signs/symptoms of labor and when to call Reviewed preeclampsia symptoms. Patients symptoms seem c/w orthostatic hypotension (dizziness, spots in vision upon standing that resolve within seconds). Reviewed measures to help this including increasing hydration and wearing compression socks. Discussed that if spots in vision occur outside of this or become persistent, would recommend eval at Center. For perineal discomfort, suggested topical Vaseline or Aquaphor as the skin in this area appears irritated (mildly erythematous). Mild tachycardia today. Suspect due to dehydration. Also, her partner was smoking in the car on the way over and she smells strongly of tobacco, so possibly related to secondhand smoke exposure. RTC in 1 week, sooner if concerns. Annelise Negrete DO .................... 01/20/2025 8:55 AM Progress Notes - OB Encounte r - 01/06/2025 - GA:33w5d 01/06/2025 - 33w5d - Annelise Negrete DO Patient is here for routine care at 33w5d -specific issues: obesity and nulliparity --> ASA 81 mg daily Cervical funneling - [facility] reviewed, no changes in plan Fundal height > dates - level II US at [facility] on 12/26 with growth 41st percentile Concerns today: Feeling fatigued and noticing nipple sensitivity. Has started noticing colostrum production as well over the past several weeks. Sometimes gets lightheaded and has black spots in vision, particularly when moving from sitting to standing or when standing in the shower. Symptoms seen c/w orthostatic hypotension. Discussed strategies to mitigate today as well as importance of hydration. No Contractions, bleeding, loss of fluid No Headache, edema, right upper quadrant pain. Baby is moving well TDaP: 12/09/24 Discussed signs/symptoms of labor and when to call Reviewed preeclampsia symptoms RTC in 2 weeks or sooner if concerns. Annelise Negrete DO .................... 01/06/2025 8:37 AM Progress Notes - OB Encounte r - 12/23/2024 - GA:31w5d 12/23/2024 - wd - Annelise Negrete DO Patient is here for routine care at 31w5d -specific issues: ASA for preeclampsia risk: obesity and nulliparity. Cervical funneling - MPP reviewed, no changes in plan Fundal height > dates - normal growth on late 2nd trimester US, 3rd trimester growth on 12/23 Concerns today: none. URI symptoms improving. Has occasional headaches that she feels may be due to a bad tooth. Headaches resolve with rest, usually last a few hours. Has upcoming dental appointment at the end of January. No Contractions, bleeding, loss of fluid. No vision changes, edema, right upper quadrant pain. Baby is moving well TDaP: 12/09/24 Discussed signs/symptoms of labor and when to call Reviewed preeclampsia symptoms Has completed hospital registration forms. Has breast pump at home. Discussed meds for baby today - mom seems supportive of all meds, dad has mixed feelings about hepatitis B vaccine. RTC in 2 weeks, sooner if needed. 3rd trimester growth US today. Annelise Negrete DO .................... 12/23/2024 8:55 AM Called patient to discuss results of growth US today showing head circumference at 5th percentile, down from 35th on prior growth US. Discussed possible causes, including visualization. Recommended level II US with MPP to assess further. Patient expressed agreement and understanding. Annelise Negrete DO .................... 12/23/2024 3:34 PM Progress Notes - OB Encounte r - 12/09/2024 - GA:29w5d 12/09/2024 - - Annelise Negrete DO Patient is here for routine care at 29w5d -specific issues: ASA for preeclampsia risk: obesity and nulliparity. Cervical funneling - MPP reviewed, no changes in plan Fundal height > dates - normal growth on late 2nd trimester US, 3rd trimester growth on 12/23 Concerns today: still dealing with URI symptoms. No Contractions, bleeding, loss of fluid. Baby is moving well TDaP: 12/09/24 Discussed signs/symptoms of labor and when to call Reviewed preeclampsia symptoms Annelise Negrete DO .................... 12/09/2024 8:31 AM NTOR Progress Notes - OB Encounte r - 11/11/2024 - GA:25w5d 11/11/2024 - - Annelise Negrete DO Patient is here for routine care at 25w5d -specific issues: Marginal previa with plan for repeat US at 32 weeks ASA for preeclampsia risk: obesity and nulliparity. Concerns today: noticing sometimes that baby feels less active than others. Has been active today. Starting to have some low back pain which is improved with use of belly band. Managing constipation with increased fiber intake. No Contractions, vaginal bleeding, loss of fluid. No Headache, vision changes, edema, right upper quadrant pain. Labs today: GTT, Hgb, syphilis 1. Encounter for supervision of normal first in second trimester (Primary) - GLUCOSE TOLERANCE, GESTATIONAL SCREEN 1H; Future - HEMOGLOBIN; Future - TREPONEMA PALLIDUM; Future 2. Placenta previa in second trimester Marginal previa noted on 20 w scan - plan for follow up at 32w (unless found to be resolved on growth US, see below) - US OB FOLLOW UP ANY TRI SINGLE TA; Future 3. Fundal height high for dates FH 30 cm today - growth US ordered to further evaluate. - US OB FOLLOW UP ANY TRI SINGLE TA; Future Discussed signs/symptoms of labor and when to call Reviewed preeclampsia symptoms Patient has breast pump, plans to try breast feeding. Annelise Negrete DO .................... 11/11/2024 8:55 AM NTOR Progress Notes - OB Encounte r - 10/15/2024 - GA:21w6d 10/15/2024 - wd - Michell Burks MD S: Patient here today for routine visit. Doing well, no concerns, taking PNVs. Tooth pain from a loose crown. She has been unable to find dental care. She has been taking 1500mg tylenol every 4 hours. No nausea. Occasional movement. No vaginal bleeding/discharge, loss of fluid, contractions, dysuria or other urinary symptoms. No headache, vision changes, RUQ or epigastric pain, facial or extremity edema. History Placenta previa, repeat US at 32 weeks, discussed avoidance of intercourse, strenuous exercise or prolonged standing. ASA for preeclampsia risk: obesity and nulliparity. O: See flowsheet. HEENT: pain overlying 1st/2nd premolar on upper left, no gum swelling or erythema. A/P: 24 y.o. at 21w6d, doing well. 1. Encounter for supervision of normal first in second trimester (Primary) 2. Placenta previa in second trimester 3. Pain in a tooth or teeth - GCT, hemoglobin and treponema at next visit - Tooth pain, provided dental resources. Reviewed safe dosing of tylenol and prescribed Orajel. - Placenta previa, repeat US at 32 weeks, discussed avoidance of intercourse, strenuous exercise or prolonged standing. - ASA for preeclampsia risk: obesity and nulliparity. . - Reviewed labor precautions. - Return in 4wks for OB FU. She will schedule with Dr Negrete. Michell Burks MD .................... 10/15/2024 9:56 AM NTOR Progress Notes - OB Encounte r - [...] Michell Burks MD .................... 09/17/2024 9:37 AM NTOR Progress Notes - OB Encounte r - [...] Michell Burks MD .................... 08/20/2024 10:38 AM NTOR Progress Notes - OB Encounte r - 07/23/2024 - GA:9w6d 07/23/2024 - wd - Michell Burks MD Clinic Note: First OB Visit 07/23/2024 Lisa Hollie Willis is a 24 y.o. with Estimated [...] 2019 chlamydia Suicidal intent 02/15/2018 Admitted for [facility]; overnight only, then d/c'd AMA, per parent (mom) wishes Past Surgical History: . Laterality Date VA TONSILLECTOMY & ADENOIDECTOMY AGE 13/> Bilateral 01/18/2024 [...] 2019 chlamydia Suicidal intent 02/15/2018 Admitted for [facility]; overnight only, then d/c'd AMA, per [...] of estimated date of delivery: No Thalassemia (Equatorial Guinean, Syriac, Mediterranean, or background): MCV less than 80: No Neural tube defect (Meningomyelocele, Spina bifida, or Anencephaly): No Congenital heart defect: No Down syndrome: No Aries-Sachs (Ashkenazi Restorationism, Cajun, Lebanese Papua [place]inean): No Nicole disease (Ashkenazi Restorationism): No Familial dysautonomia (Ashkenazi Restorationism): No Sickle cell disease or trait (): No Hemophilia or other blood disorders: No Muscular dystrophy: No Cystic fibrosis: No Nathanael's chorea: No Intellectual disability and/or autism: No [...] of Beginnings book and book inserts, discussed [id number] medications, and follow up. - Encouraged patient to call clinic at [phone] with any vaginal bleeding, fluid leaking from [...] Center 07/23/2024 10:15 AM Michell Burks MD NFLDFP NFLD Gabriela Souza RN .................... 07/10/2024 11:14 AM Last Filed Vital Signs Vital Sign Reading Time Taken Comments Blood Pressure 108/72 02/04/2025 8:59 AM CDT Pulse 96 02/04/2025 8:59 AM CDT Temperature 36.9 C (98.4 F) 12/06/2024 9:52 AM ORIENTOR Respiratory Rate 14 02/07/2024 12:44 PM CDT Oxygen Saturation 99% 02/04/2025 8:59 AM CDT Inhaled Oxygen Concentration - - Weight 106.6 kg (235 lb) 02/04/2025 8:59 AM CDT Height 164.4 cm (5' 4.72) 07/10/2024 10:46 AM C DT Body Mass Index 39.44 07/10/2024 10:46 AM CDT Plan of Treatment Upcoming Encounters Date Type Department Care Team (Late st Contact Info) Description 02/10/2025 8:45 AM CDT [facility] [address] [place] [address] Annelise Negrete, [address] [place] [address] 02/17/2025 8:35 AM CDT [facility] [address] [place] [address] Michell Burks MD [address] [place] [address] 02/21/2025 9:35 AM CDT [facility] [address] [place] [address] Annelise Negrete DO [address] [place] [address] Health Maintenance Due Date Last Done Comments COVID-19 vaccine series ( season) 2024 08/28/2021, 03/17/2021 Depression screening for age 12+ 03/27/2025 03/27/2024, 03/25/2024, 02/21/2024, Additional history exists Influenza Vaccine (Season Ended) 2025 09/30/2023, 06/05/2019, 12/22/2015 BMI (ht and wt on same day) for age 18+ 07/10/2025 07/10/2024, 02/07/2024, 01/08/2024, Additional history exists Chlamydia for age 16-24 12/09/2025 12/09/2024, 06/05 Pap test for age 21-65 09/12/2026 09/12/2023 Tetanus booster 12/09/2034 12/09/2024, 03/09, 01/24/2014 Pneumococcal series for age 6-49 Aged Out 01/25/2002, 2001, 2001 No longer eligible based on patient's age to complete this topic HPV series for age 9-26 Completed 09/01/20, 04/28/2014, 01/24/2014 HIV for age 15-65 Completed 07/10/2024 Hepatitis C screening for age 18-79 Completed 07/10/2024, 04/07/2022 Tdap Completed 12/09/2024, 03/09, 01/24/2014 RSV vaccine for adults or (No Doses Required) Completed Procedures Procedure Name Priority Date/Time Associated Diagnosis Comments VAGINAL/RECTAL OB STREP PCR Routine 01/20/2025 9:36 AM CDT care, first in third trimester (HC) US OB DETAIL ANATOMY SINGLE Routine 12/26/2024 2:19 PM CDT High-risk in third trimester (HC) US OB FOLLOW UP ANY TRI SINGLE TA Routine 12/23/2024 9:20 AM CDT Fundal height high for dates (HC) GC CHLAMYDIA TRACH PROBE Routine 12/09/2024 9:52 AM ORIENTOR Screening for chlamydial disease COVID/FLU/RSV PANEL Routine 12/06/2024 1 0:23 AM ORIENTOR Upper respiratory tract infection, unspecified type CBC W PLT NO DIFF Routine 12/06/2024 10: 22 AM ORIENTOR headache in third trimester (HC) AST (SGOT) Routine 12/06/2024 10:22 AM ORIENTOR headache in third trimester (HC) ALT (SGPT) Routine 12/06/2024 10:22 AM ORIENTOR headache in third trimester (HC) CREATININE Routine 12/06/2024 10:22 AM ORIENTOR headache in third trimester (HC) PROTEIN/CREAT RATIO,URINE Routine 12/06/2024 10:20 AM ORIENTOR headache in third trimester (HC) US OB CERVICAL LENGTH TV TAB 11/20/2024 3:37 PM ORIENTOR Cervical funneling US OB FOLLOW UP ANY TRI SINGLE TA Routine 11/15/2024 10:00 AM ORIENTOR Fundal height high for dates (HC) TREPONEMA PALLIDUM Routine 11/11/2024 9: 35 AM ORIENTOR Encounter for supervision of normal first in second trimester (HC) GLUCOSE TOLERANCE, GESTATIONAL SCREEN 1H Routine 11/11/2024 9:33 AM ORIENTOR Encounter for supervision of normal first in second trimester (HC) HEMOGLOBIN Routine 11/11/2024 9:33 AM ORIENTOR Encounter for supervision of normal first in second trimester (HC) HIV 1/2 ANTIGEN/ANTIBODY FOURTH GENERATION W/RFL ([facility]) Routine 07/10/2024 12:10 PM CDT Encounter for supervision of normal first in first trimester (HC) ANTI HCV Routine 07/10/2024 12:10 PM CDT Encounter for supervision of normal first in first trimester (HC) PALEOLOGY PROFESSOR THIN PREP PAP SCREEN IMAGED Routine 09/12/2023 10:51 AM ORIENTOR Pap smear for cervical cancer screening from Last 3 Months or Most Recently Relevant to Health Maintenance Results * (ABNORMAL) VAGINAL/RECTAL OB STREP PCR (01/20/2025 9:36 AM CDT) Vaginal/Rectal OB Strep B PCR Positive( A) 01/22/2025 8:21 AM CDT [facility] Comment:If susceptibility is needed due to penicillin allergy, contact lab. Other (Vaginal/Rectal) Non-Blood / Unknown 01/20/2025 9:36 AM CDT 01/20/2025 9:36 AM CDT us Annelise Negrete DO MICROBIOLOGY Final Resu lt [facility] [address] [place] [address], * US OB DETAIL ANATOMY SINGLE (12/26/2024 2:19 PM CDT) Anatomical Region Laterality Modality , 2or 3 TRIMESTER Ultrasound 12/26/2024 1:46 PM CDT Narrative 12/26/2024 4:10 PM CDT Referred By: ANNELISE NEGRETE Indications Code 32 weeks gestation of Z3A.32 HC 5% Maternal Obesity - BMI >30 PCOS Anxiety/deperession IMPRESSION: Intrauterine at 32w 1d. presentation is Cephalic. EFW 1909 grams, percentile: 41. Head circumference is in the 38th percentile. Growth parameters and estimated weight are appropriate for gestational age. No major structural anomalies identified. Limited abdominal cord insertion due to advanced gestational age but appears grossly normal. No markers for aneuploidy identified. Normal Deepest Vertical Pocket of amniotic fluid: 4.74 cm. Placental location: Posterior. The transabdominal cervical length is not seen due to advanced gestational age. RECOMMENDATIONS: -Return to primary provider for continued care. -No alterations in the delivery plan are necessary. -No medication changes are indicated. -No surveillance suggested. -No indication for aneuploidy screening or invasive testing -No further ultrasounds are necessary for the present indication. COMMENT: Present findings are reassuring. The patient was seen by the Perinatologist today. The previous ultrasound and the records were reviewed. The results of today's ultrasound were communicated to the patient. Alternatives available for detecting anomalies, aneuploidy and predicting developmental outcome for this were thoroughly discussed. The risks, benefits and limitations of maternal serum screening, ultrasound, and genetic amniocentesis were thoroughly reviewed with the patient. At the conclusion of our consultation the patient declined any further testing. We reviewed the indication for referral with HC <10th percentile on outside ultrasound. Head biometry is normal today and intracranial structures appear normal. Suspect this was an ascertainment error on prior ultrasound given our findings today. Reassurance provided. No further ultrasounds are indicated. Government regulations related to the Cures act require that this note be released to the patient immediately, sometimes before the referring provider has been contacted. A portion of the information was presented verbally to the patient. The remainder is submitted as background for the referring provider, to be discussed as needed. Medical Decision Making: Low Level 14982 Limited Diagnoses including two or more self-limited problems, and small HC on outside ultrasound, class I obesity Limited Data including review of prior ultrasound and review of prior external notes Minimal risk of mortality to the fetus from routine care Services Provided: Procedures Code DETAIL ANATOMY 90566.0 Procedure Note Lazara Reyez MD - 12/26/2024 Referred By: ANNELISE NEGRETE IndicationsCode 32 weeks gestation of [id number] HC 5% Maternal Obesity - BMI >30 PCOS Anxiety/deperession IMPRESSION: Intrauterine at 32w 1d. presentation is Cephalic. EFW 1909 grams, percentile: 41. Head circumference is in the 38th percentile. Growth parameters and estimated weight are appropriate forgestational age. No major structural anomalies identified. Limited abdominal cord insertiondue to advanced gestational age but appears grossly normal. No markers for aneuploidy identified. Normal Deepest Vertical Pocket of amniotic fluid: 4.74 cm. Placental location: Posterior. The transabdominal cervical length is not seen due to advanced gestationalage. RECOMMENDATIONS: -Return to primary provider for continued care. -No alterations in the delivery plan are necessary. -No medication changes are indicated. -No surveillance suggested. -No indication for aneuploidy screening or invasive testing -No further ultrasounds are necessary for the present indication. COMMENT: Present findings are reassuring. The patient was seen by thePerinatologist today. The previous ultrasound and the records were reviewed. The resultsof today's ultrasound were communicated to the patient. Alternatives available for detectingfetal anomalies, aneuploidy and predicting developmental outcome for this werethoroughly discussed. The risks, benefits and limitations of maternal serum screening,ultrasound, and genetic amniocentesis were thoroughly reviewed with the patient. At theconclusion of our consultation the patient declined any further testing. We reviewed the indication for referral with HC <10th percentile onoutside ultrasound. Head biometry is normal today and intracranial structures appear normal.Suspect this was an ascertainment error on prior ultrasound given our findings today.Reassurance provided. No further ultrasounds are indicated. Government regulations related to the Cures act require thatthis note be released to the patient immediately, sometimes before the referring provider hasbeen contacted. A portion of the information was presented verbally to the patient. Theremainder is submitted as background for the referring provider, to be discussed as needed. Medical Decision Making: Low Level 77138 Limited Diagnoses including two or more self-limited problems, and small HC on outside ultrasound, class I obesity Limited Data including review of prior ultrasound and review of priorexternal notes Minimal risk of mortality to the fetus from routine care Services Provided: ProceduresCode DETAIL [id number] us Annelise Negrete DO US Edited Res ult - Final * US OB FOLLOW UP ANY TRI SINGLE TA (12/23/2024 9:20 AM CDT) Only the most recent of2 resultswithin the time period is included. Anatomical Region Laterality Modality , 2or 3 TRIMESTER Ultrasound 12/23/2024 11:2 0 AM CDT Narrative 12/23/2024 11:20 AM CDT For Patients: As a result of the Cures Act, medical imaging exams and procedure reports are released immediately into your electronic medical record. You may view this report before your referring provider. If you have questions, please contact your health care provider. INDICATION: Fundal height high for dates TECHNIQUE: Ultrasound OB pelvis transabdominal. Real-time persaud-scale imaging of the fetus was performed as well as color Doppler and spectral Doppler analysis of the umbilical artery. COMPARISON: Ob ultrasound 11/15/2024 FINDINGS: Church intrauterine . heart rate: 146 beats per minute. Presentation: Cephalic. Placenta: Posterior. Amniotic fluid deepest pocket: 5.9 cm. The following biometric measurements were obtained: Biparietal diameter: 22nd percentile. Head circumference: 5th percentile, previously 35th. Abdominal circumference: 82nd percentile. Femur length: 42nd percentile. Ultrasound age: 31 weeks, 6 days. LMP age: 31 weeks, 5 days. MERCEDES by LMP: 02/19/2025. EFW: 1936 Grams, 57 %. IMPRESSION.: Church intrauterine with cardiac activity. Fetus is in cephalic presentation. Estimated gestational age 31 weeks, 5 days by LMP is concordant with biometry. Estimated weight 1936 grams is 57th percentile. There has been interval growth compared to prior. Head circumference is at 5th percentile, previously 35th percentile and is small for gestational age. Remainder of biometry measurements are within normal limits. Posterior placenta. Normal amniotic fluid. Dictated by Elvie Johnson MD @ 12/23/2024 11:20:22 AM (Electronically Signed) Procedure Note Elvie Johsnon MD - 12/23/2024 For Patients: As a result of the Cures Act, medical imagingexams and procedure reports are released immediately into your electronicmedical record. You may view this report before your referring provider.If you have questions, please contact your health care provider. INDICATION: Fundal height high for dates TECHNIQUE: Ultrasound OB pelvis transabdominal. Real-time persaud-scale imaging of thefetus was performed as well as color Doppler and spectral Doppler analysisof the umbilical artery. COMPARISON: Ob ultrasound 11/15/2024 FINDINGS: Church intrauterine . heart rate: 146 beats per minute. Presentation: Cephalic. Placenta: Posterior. Amniotic fluid deepest pocket: 5.9 cm. The following biometric measurements were obtained: Biparietal diameter: 22nd percentile. Head circumference: 5th percentile, previously 35th. Abdominal circumference: 82nd percentile. Femur length: 42nd percentile. Ultrasound age: 31 weeks, 6 days. LMP age: 31 weeks, 5 days. MERCEDES by LMP: 02/19/2025. EFW: 1936 Grams, 57 %. IMPRESSION.: Church intrauterine with cardiac activity. Fetus is incephalic presentation. Estimated gestational age 31 weeks, 5 days by LMP is concordant withbiometry. Estimated weight 1936 grams is 57th percentile. There hasbeen interval growth compared to prior. Head circumference is at 5th percentile, previously 35th percentile and issmall for gestational age. Remainder of biometry measurements are withinnormal limits. Posterior placenta. Normal amniotic fluid. Dictated by Elvie Johnson MD @ 12/23/2024 11:20:22 AM (Electronically Signed) Annelise Negrete DO Final Resu lt * GC CHLAMYDIA TRACH PROBE [[id number]] (12/09/2024 9:52 AM ORIENTOR) Pathologist [facility] CHLAMYDIA PROBE Negative 8:07 PM ORIENTOR [facility]AT[facility] N GONORRHOEAE PROBE Negative 12/09/2024 8:07 PM ORIENTOR [facility] Other URINE SPECIMEN / Unknown Non-Blood / Unknown 12/09/2024 9:52 AM ORIENTOR 12/09/2024 9:52 AM ORIENTOR Annelise Negrete DO MICROBIOLOGY Final Resu lt [facility] [address] [place] [address], [place] * COVID/FLU/RSV PANEL (12/06/2024 10:23 AM ORIENTOR) COVID 19 [facility]LECULAR Negative Negative 12/06/2024 4:22 PM ORIENTOR [facility] TR[facility] Comment:All PCR tests are perales bject to false negative result due to variability in viral load and collection technique. A negative result does not rule out a SARS-CoV-2 infection. Clinical correlation required. INFLUENZA A PCR Negative 4:[address] [facility] INFLUENZA B PCR Negative 5 4:22 PM ORIENTOR [facility] Respiratory Syncytial Virus Negative 12/06/2024 4:22 PM ORIENTOR [facility] Swab NASOPHARYNGEAL SWAB / Unknown Non-Blood / Unknown 12/06/2024 10:23 AM ORIENTOR 12/06/2024 10:23 AM ORIENTOR us Annelise Negrete DO MICROBIOLOGY Final Resu lt [facility] [address] [place] [address], * (ABNORMAL) CBC W PLT NO DIFF (12/06/2024 10:22 AM ORIENTOR) WHITE BLOOD CELL COUNT 13.3(H) 3.8 - 10.8 Thousand/u L [facility] RED BLOOD CELL COUNT 3.93 3.80 - 5.10 Million/uL [facility] HEMOGLOBIN 11.7 11.7 - 15.5 g/dL [facility] HEMATOCRIT 34.6(L) 35.0 - 45.0 % [facility] MCV 88.0 80.0 - 100.0 fL [facility] MCH 29.8 27.0 - 33.0 pg [facility] MCHC 33.8 32.0 - 36.0 g/dL [facility] Comment: For adults, a slight decrease in the calculated MCHC value (in the range of 30 to 32 g/dL) is most likely not clinically significant; however, it should be interpreted with caution in correlation with other red cell parameters and the patient's clinical condition. RDW 13.5 11.0 - 15.0 % [facility] PLATELET COUNT 349 140 - 400 Thousand/u L [facility] MPV 8.8 7.5 - 12.5 fL [facility] Blood BLOOD SPECIMEN / Unknown 12/06/2024 10:22 AM ORIENTOR 12/06/2024 10:23 AM ORIENTOR us Annelise Negrete DO HEMATOLOGY Final Resu lt Performing Organization Address [facility]/ZIP Co de Phone Number [facility] [address] [place] [place] [address], [place] [phone] [facility] [address] [facility] [place] [address] * (ABNORMAL) CREATININE (12/06/2024 10:22 AM ORIENTOR) CREATININE 0.49(L) 0.50 - 0.96 mg/dL [facility] EGFR 136 > OR = 60 mL/min/1.73 m2 [facility] Blood BLOOD SPECIMEN / Unknown 12/06/2024 10:22 AM ORIENTOR 12/06/2024 10:23 AM ORIENTOR us Annelise Negrete DO CHEMISTRY Final Resu lt Performing Organization Address [facility]/ZIP Co de Phone Number [facility] [address] [facility] [place] [address], [place] [phone] [facility] [address] [place] [address] * ALT (SGPT) (12/06/2024 10:22 AM ORIENTOR) ALT 16 6 - 29 U/L [facility] Blood BLOOD SPECIMEN / Unknown 12/06/2024 10:22 AM ORIENTOR 12/06/2024 10:23 AM ORIENTOR us Annelise Negrete DO CHEMISTRY Final Resu lt Performing Organization Address [facility]/ZIP Co de Phone Number [facility] [address] [facility] [place] [address], [place] [phone] [facility] [address] [place] [address] * AST (SGOT) (12/06/2024 10:22 AM ORIENTOR) Pathologist [facility] AST 20 10 - 30 U/L [facility] Blood BLOOD SPECIMEN / Unknown 12/06/2024 10:22 AM ORIENTOR 12/06/2024 10:23 AM ORIENTOR us Annelise Negrete DO CHEMISTRY Final Resu lt [facility] [address] [place] [address], [place] [phone] [facility] [address] [place] [address] * PROTEIN/CREAT RATIO,URINE (12/06/2024 10:20 AM ORIENTOR) Pathologist [facility] PROTEIN QUANT,RAND URINE <6 1 - 14 mg/dL 12/06/2024 6:[address] [facility] CREAT,RANDOM URINE 49.0 28.0 - 217.0 mg/dL 12/06/2024 6:04 PM ORIENTOR [facility] PROT/CREAT RATIO,UR 12/06/2024 6:04 PM ORIENTOR [facility] Comment:Urine Protein below measurement range, unable to calculate. Urine URINE SPECIMEN / Unknown Non-Blood / Unknown 12/06/2024 10:20 AM ORIENTOR 12/06/2024 10:20 AM ORIENTOR us Annelise Negrete DO URINE Final Resu lt [facility] [address] [place] [address], [place] * US OB CERVICAL LENGTH TV (11/20/2024 3:37 PM ORIENTOR) Anatomical Region Laterality Modality Ultrasound 11/21/2024 1:10 AM ORIENTOR Impressions 11/21/2024 1:10 AM ORIENTOR No significant change in slight funneling of the internal cervical os. Follow-up is recommended. Dictated by Clari Mendez MD @ 11/21/2024 1:10:48 AM (Electronically Signed) Narrative 11/21/2024 1:10 AM ORIENTOR For Patients: As a result of the Cures Act, medical imaging exams and procedure reports are released immediately into your electronic medical record. You may view this report before your referring provider. If you have questions, please contact your health care provider. INDICATION: Cervical funneling. COMPARISON: OB ultrasound 11/15/2024. TECHNIQUE: Ultrasound OB pelvis cervical length transvaginal with real time persaud scale imaging and color Doppler analysis. FINDINGS: Sonographic imaging demonstrates an intrauterine gestation with fetus in cephalic position. No heart rate measurements were obtained. There is slight funneling of the internal cervical os similar to prior exam. The funneled portion measures 1.8 cm in length and the closed portion measures 2.2 cm in length. Procedure Note Clari Mendez MD - 11/21/2024 For Patients: As a result of the Cures Act, medical imagingexams and procedure reports are released immediately into your electronicmedical record. You may view this report before your referring provider.If you have questions, please contact your health care provider. INDICATION: Cervical funneling. COMPARISON: OB ultrasound 11/15/2024. TECHNIQUE: Ultrasound OB pelvis cervical length transvaginal with real time grayscale imaging and color Doppler analysis. FINDINGS: Sonographic imaging demonstrates an intrauterine gestation with fetus incephalic position. No heart rate measurements were obtained. Thereis slight funneling of the internal cervical os similar to prior exam. Thefunneled portion measures 1.8 cm in length and the closed portion measures2.2 cm in length. IMPRESSION: No significant change in slight funneling of the internal cervical os.Follow-up is recommended. Dictated by Clari Mendez MD @ 11/21/2024 1:10:48 AM (Electronically Signed) us Annelise Negrete DO US Final Resu lt * TREPONEMA PALLIDUM (11/11/2024 9:35 AM ORIENTOR) TREPONEMA PALLIDUM Non-Reacti ve Non-Reacti ve 11/11/2024 4:[address] [facility] Blood BLOOD SPECIMEN / Unknown [facility] / Unknown 11/11/2024 9:35 AM ORIENTOR 11/11/2024 9:35 AM ORIENTOR Michell Burks MD SEND OUTS Fi nal Result [facility] [address] [place] [address], * (ABNORMAL) HEMOGLOBIN (11/11/2024 9:33 AM ORIENTOR) HEMOGLOBIN 11.3(L) 11.7 - 15.5 g/dL [facility] Blood BLOOD SPECIMEN / Unknown 11/11/2024 9:33 AM ORIENTOR 11/11/2024 9:33 AM ORIENTOR Annelise Negrete DO HEMATOLOGY Final Resu lt Performing Organization Address [facility]/ZIP Co de Phone Number [facility] [address] [place] [address], [place] [phone] [facility] [address] [place] [address] * GLUCOSE TOLERANCE, GESTATIONAL SCREEN 1H (11/11/2024 9:33 AM ORIENTOR) GLUCOSE, GESTATIONAL SCREEN (50G)-140 CUTOFF 110 <140 mg/dL [facility] Blood BLOOD SPECIMEN / Unknown 11/11/2024 9:33 AM ORIENTOR 11/11/2024 9:33 AM ORIENTOR Annelise Negrete DO CHEMISTRY Final Resu lt Performing Organization Address City/[facility]/ZIP Co de Phone Number [facility] [address] [place] [address], [place] [phone] [facility] [address] [place] [address] * HIV 1/2 ANTIGEN/ANTIBODY FOURTH GENERATION W/RFL ([facility]) (07/10/2024 12:10 PM CDT) HIV AG/AB, 4TH GEN NON-REACT LUPE NON-REACT LUPE [facility] Comment: HIV-1 antigen and HIV-1/HIV-2 antibodies were [...] purpose. For additional information please refer to http://education.OpenFeint/faq/ROG833 (This link is being provided for informational/ educational purposes only.) The performance of this assay has not been clinically validated in patients less than 2 years old. Blood BLOOD SPECIMEN / Unknown 07/10/2024 12:10 PM CDT 07/10/2024 12:11 PM CDT Michell Burks MD SEND OUTS Fi nal Result [facility] [address] [place] [address], [facility] [address] [place] [address] * ANTI HCV (07/10/2024 12:10 PM CDT) HEPATITIS C ANTIBODY NON-REACTI VE NON-REACT LUPE [facility] Comment: HCV antibody was non-reactive. There is no laboratory evidence of HCV infection. In most cases, no further action is required. However, if recent HCV exposure is suspected, a test for HCV RNA (test code 37037) is suggested. For additional information please refer to http://education.OpenFeint/faq/ZPK98n3 (This link is being provided for informational/ educational purposes only.) Blood BLOOD SPECIMEN / Unknown 07/10/2024 12:10 PM CDT 07/10/2024 12:11 PM CDT Michell Burks MD SEND OUTS Fi nal Result [facility] [address] [place] [address], [facility] [address] [place] [address] * PALEOLOGY PROFESSOR THIN PREP PAP SCREEN IMAGED (09/12/2023 10:51 AM ORIENTOR) Case Report Gynecologic Cytology Report Case: [id number] Authorizing Provider: Shaylee Cruz MD Collected: 09/12/2023 1051 Ordering Location: [facility] Received: 09/12/2023 1051 Clinic First Screen: Lazara Zimmer Specimen: PALEOLOGY PROFESSOR ThinPrep Vial Screening, Cervical 09/20/2023 11:09 AM ORIENTOR [facility] INTERPRETATION/ RESULT NEGATIVE FOR INTRAEPITHELIAL LESION OR MALIGNANCY (NIL) (none) 09/20/2023 11:09 AM ORIENTOR [facility] at 1109 ORIENTOR ORGANISM(S) Shift in sarkis suggestive of bacterial vaginosis 09/20/2023 11:09 AM ORIENTOR [facility] SPECIMEN ADEQUACY Satisfactory for evaluation No endocervical component seen 09/20/2023 11:09 AM ORIENTOR [employer] [facility]AL LAB[facility]AT[facility] Date of LMP 08/10/2023 09/20/2023 11:09 AM ORIENTOR [employer] [facility] Last Pap Date First pap 09/20/2023 11:09 AM ORIENTOR [employer] [facility] Last Pap Result First Pap/Unknown 11:09 AM ORIENTOR [facility] EN[facility]AL LAB[facility] Abnormal Pap or [place] Bx in last 5 years No 09/20/2023 11:09 AM ORIENTOR [facility] Menstrual Status Regular Periods 09/20/2023 11:09 AM ORIENTOR [facility] [place] Bx Done Today No 09/20/2023 11:09 AM ORIENTOR [facility] Additional Information None given 09/20/2023 11:09 AM ORIENTOR [facility] EN[facility]DE LAB[facility] Comment: Cytology is screened at [facility] - [address], [place] [address] and [facility] - [address], [place] [address] and [facility] - [address] [place] [address] Interpreted at [facility] - [address] [place] [address] Automated Review Successful 09/20/2023 11:09 AM ORIENTOR [facility] ENTRDE LAB[facility]AT[facility] Comment:Specimen processed s uccessfully by automated drapery counselor device, ThinPrep Imaging System, [employer] Note The pap test is a screening technique, not a diagnostic procedure. It is used primarily to screen for squamous cancers and precursor lesions. Published studies have shown that it is subject to both false negative and false positive results. The pap test should not be used as the sole means to diagnose or exclude pre-malignant and malignant lesions. 09/20/2023 11:09 AM ORIENTOR [facility] Other (Cervical) Non-Blood / Unknown 09/12/2023 10:51 AM ORIENTOR 09/12/2023 10:51 AM ORIENTOR us Shaylee Cruz MD PATHOLOGY/CYTOLOGY Irena disla Result [facility] [address] [place] [address], [place] from Last 3 Months or Most Recently Relevant to Health Maintenance Insurance [facility] Advance Directives * Full Code (Latest Code Status on File) Date Activated Date Inactivated Comments 01/18/2024 8:29 AM 01/18/2024 3:24 PM Question Answer Comments Code Status Discussion: Reviewed Preferences Care Teams Hose Mender Relationship Specialty [place] [address] [place] [address] PCP - General Family Practice 04/07/22
--- OUTSIDE RECORDS SUMMARY | 2025-02-08 17:36 | XMS_ITS | Encounter Summary ---
Author Organization [place] Address [address] [place] [address] Care Team Providers Care Sales And Management Trainee Name Role Phone Ness Conroy MD Primary Care Provider [phone] Channing Brush MD Primary Care Provider +- [phone] Reason for Visit * Reason Onset Date Comments MH/CD Inpatient 02/15/2018 Encounter Details Date Type Department Care Team ([facility] st Contact Info) Description 02/15/2018 Telephone [facility] Behavioral Health Intake [address] [place] [phone] Generic, Behavioral Intake, MD MH/CD Inpatient Social [...] Coronavirus/COVID-19? No / Unsure 10/26/2022 7:27 AM CABLE MAINTAINER documented as of this encounter Miscellaneous Notes * Telephone Encounter - Tiana Mcgee - 02/15/2018 4:32 PM CDT R: case passed at change of shift (see previous intake note from 02/15 for additional clinical information); pt was seen by DEC press bucker at school today, and referred to ED for medical clearance only Per Dr. Edgar, pt has been medically cleared for admission; per Herve, pt will be placed on an emergency hold for admission, as mother has not been able to be reached, and it is reportedly suspected that mother is unwilling to give consent for admission 7A/Matr (Dr. Cevallos accepts for self); unit notified of admission (Karen, DARRELL), disposition given to ED, page sent to ED relief charge nurse with admit info 4:46pm * Telephone Encounter - Tori Miller RN - 02/15/2018 1:57 PM CDT S: Caprice with MARCELINO ([phone]) who saw pt at [place] [facility] calling: B: Pt being sent via ambulance to [place] for further evaluation. Pt endorses SI with [...] had to be left. (Mom)Ruth Ann Pabon [phone] R: Pt to be assessed in ED for medical clearance only - no need to be assessed by DEC assessors, only needs medical clearance documented in this encounter Plan of Treatment Not on file documented as of this encounter Visit Diagnoses Not on filedocumented in this encounter Care Teams Sales And Management Trainee Relationship Specialty Start Date End Date Ness Conroy MD PCP - General Pediatrics 05/26/17 10/25/22 [place] [address] [place] [address] PCP - General 10/26/22 documented as of this encounter
--- OUTSIDE RECORDS SUMMARY | 2025-02-08 17:36 | XMS_ITS | Encounter Summary ---
Author Organization [place] Address [address] [place] [address] Care Team Providers Care Automobile Wrecker Name Role Phone Ness Conroy MD Primary Care Provider [phone] Channing Brush MD Primary Care Provider [phone] Encounter Details Date Type Department Care Team [...] Coronavirus/COVID-19? No / Unsure 10/26/2022 7:27 AM ORTHODONTIC BAND MAKER documented as of this encounter Plan of Treatment Not on file documented as of this encounter Visit Diagnoses Not on filedocumented in this encounter Care Teams Automobile Wrecker Relationship Specialty Start Date End Date Ness Conroy MD PCP - General Pediatrics 05/26/17 10/25/22 [place] [address] [place] [address] PCP - General 10/26/22 documented as of this encounter
--- OUTSIDE RECORDS SUMMARY | 2025-02-08 17:36 | XMS_ITS | Clinical Summary ---
Author Organization [facility] Address [address] [place] [address] Care Team Providers Care Muff Winder Name Role Phone Channing Brush MD Primary Care Provider [phone] Allergies No known active allergies Medications metFORMIN [...] OF HM ORDERS 2001 YEARLY PREVENTIVE VISIT 2004 HIV SCREENING 2016 MENINGITIS B IMMUNIZATION (1 of 2 - Standard) 2017 CHLAMYDIA SCREENING 06/05/2020 06/05/2019, 7 PAP 2022 COVID-19 Vaccine ( season) 2024 08/28/2021, 03/17/2021 PHQ-2 (once per calendar year) 2024 INFLUENZA VACCINE (Season Ended) 2025 09/30/2023, 06/05/2019, 12/22/2015 DTAP/TDAP/TD IMMUNIZATION (8 - Td or Tdap) 03/25/2034 03/25/2024, 01/24/2014, 01/31/2006, Additional history exists ZOSTER IMMUNIZATION (1 of 2) 2051 Pneumococcal Vaccine: Pediatrics (0 to 5 Years) and At-Risk Patients (6 to 49 Years) Aged Out 01/25/2002, 2001, 2001 No longer eligible based on patient's age to complete this topic HEPATITIS B IMMUNIZATION Completed 002, 2001, 2001 HPV IMMUNIZATION Completed 09/01/2014, , 01/24/2014 MENINGITIS IMMUNIZATION Completed 06/05/2019, 01/24 HEPATITIS C SCREENING Completed 04/07/2022 Procedures Procedure Name Priority Date/Time Associated Diagnosis Comments CHLAMYDIA TRACHOMATIS PCR STAT 05/27/2017 12:50 AM CDT Ovarian cyst, right from Last 3 Months or Most Recently Relevant to Health Maintenance Results * Chlamydia trachomatis PCR (05/27/2017 12:50 AM CDT) Specimen Description Cervix 05/27/2017 1:03 AM CDT [facility] Chlamydia Trachomatis PCR Negative NEG^Negat clara 05/28/2017 1:38 PM CDT [facility] Comment: Negative for C. trachomatis rRNA by xerox machine assembler mediated amplification. A negative result by xerox machine assembler mediated amplification does not preclude the presence of C. trachomatis infection because results are dependent on proper and adequate collection, absence of inhibitors, and sufficient rRNA to be detected. Cervical swab (specimen) 05/27/2017 12:50 AM CDT 05/27/2017 1:03 AM CDT us Bre Negron MD LAB - MICRO GENERAL ORDERABLES Final Result [facility] [address] [place] [address], [facility] [address] [place] [address], [facility] [phone] from Last 3 Months or Most Recently Relevant to Health Maintenance Insurance [facility] Advance Directives For more information, please contact: [phone] * Full Code (Latest Code Status on File) Date Activated Date Inactivated Comments 09/29/2023 4:31 PM 09/30/2023 4:43 PM All basic and advanced life-sustaining interventions are performed as appropriate Question Answer Comments Code status determined by: Discussion with patie nt/ legal decision maker * Full Code Date Activated Date Inactivated Comments 02/15/2018 9:28 PM 02/16/2018 4:09 PM Care Teams Muff Winder Relationship Specialty [place] [address] [place] [address] PCP - General 10/26/22
[2025-02-08 17:42] VITALS: BP 123/77; PULSE 108; RESP 18; TEMP 37.1; O2SAT 96; BMI 40.5
--- OUTSIDE RECORDS SUMMARY | 2025-02-08 17:59 | XMS_ITS | Clinical Summary ---
Author Organization [place] Address [address] [place] [address] Care Team Providers Care Architectural Draftsman Name Role Phone Channing Brush MD Primary Care Provider [phone] Allergies No known active allergies Medications metFORMIN [...] Specimen Description Cervix 05/27/2017 1:03 AM CDT [facility] Chlamydia Trachomatis PCR Negative NEG^Negat clara 05/28/2017 1:38 PM CDT [facility] Comment: Negative for C. trachomatis rRNA by corporate director of pharmacy mediated amplification. A negative result by corporate director of pharmacy mediated amplification does not preclude the presence of C. trachomatis infection because results are dependent on proper and adequate collection, absence of inhibitors, and sufficient rRNA to be detected. Cervical swab (specimen) 05/27/2017 12:50 AM CDT 05/27/2017 1:03 AM CDT us Bre Negron MD LAB - MICRO GENERAL ORDERABLES Final Result [facility] [address] [place] [address], [facility] [address] [place] [address], [facility] [phone] from Last 3 Months or Most Recently Relevant to Health Maintenance Insurance [facility] Advance Directives For more information, please contact: [phone] * Full Code (Latest Code Status on File) Date Activated Date Inactivated Comments 09/29/2023 4:31 PM 09/30/2023 4:43 PM All basic and advanced life-sustaining interventions are performed as appropriate Question Answer Comments Code status determined by: Discussion with patie nt/ legal decision maker * Full Code Date Activated Date Inactivated Comments 02/15/2018 9:28 PM 02/16/2018 4:09 PM Care Teams Architectural Draftsman Relationship Specialty [place] [address] [place] [address] PCP - General 10/26/22
--- OUTSIDE RECORDS SUMMARY | 2025-02-08 17:59 | XMS_ITS | Encounter Summary ---
Author Organization [place] Address [address] [place] [address] Care Team Providers Care Ballistics Tester Name Role Phone Ness Conroy MD Primary Care Provider [phone] Channing Brush MD Primary Care Provider [phone] Encounter Details Date Type Department Care Team [...] Coronavirus/COVID-19? 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
--- OUTSIDE RECORDS SUMMARY | 2025-02-08 17:59 | XMS_ITS | Encounter Summary ---
Author Organization [place] Address [address] [place] [address] Care Team Providers Care Light Armored Reconnaissance Officer Name Role Phone Ness Conroy MD Primary Care Provider [phone] Channing Brush MD Primary Care Provider +- [phone] Reason for Visit * Reason Onset Date Comments MH/CD Inpatient 02/15/2018 Encounter Details Date Type Department Care Team ([facility] st Contact Info) Description 02/15/2018 Telephone [facility] Behavioral Health Intake [address] [place] [phone] Generic, Behavioral Intake, MD MH/CD Inpatient Social [...] Coronavirus/COVID-19? No / Unsure 10/26/2022 7:27 AM GIZZARD PEELER documented as of this encounter Miscellaneous Notes * Telephone Encounter - Tiana Mcgee - 02/15/2018 4:32 PM CDT R: case passed at change of shift (see previous intake note from 02/15 for additional clinical information); pt was seen by DEC blank driller at school today, and referred to ED for medical clearance only Per Dr. Edgar, pt has been medically cleared for admission; per Herve, pt will be placed on an emergency hold for admission, as mother has not been able to be reached, and it is reportedly suspected that mother is unwilling to give consent for admission 7A/Mart (Dr. Cevalols accepts for self); unit notified of admission (Karen, DARRELL), disposition given to ED, page sent to ED discharge rn with admit info 4:46pm * Telephone Encounter - Tori Miller RN - 02/15/2018 1:57 PM CDT S: Caprice with MARCELINO ([phone]) who [facility] pt at [place] calling: B: Pt being sent via ambulance to [place] for further evaluation. Pt endorses SI with [...] had to be left. (Mom)Ruth Ann Pabon [phone] R: Pt to be assessed in ED for medical clearance only - no need to be assessed by DEC assessors, only needs medical clearance documented in this encounter Plan of Treatment Not on file documented as of this encounter Visit Diagnoses Not on filedocumented in this encounter Care Teams Light Armored Reconnaissance Officer Relationship Specialty Start Date End Date Ness Conroy MD PCP - General Pediatrics 05/26/17 10/25/22 [place] [address] [place] [address] PCP - General 10/26/22 documented as of this encounter
[2025-02-08 18:07] VITALS: BP 129/77; PULSE 92; PULSE 96; O2SAT 98
[2025-02-08 18:15] VITALS: RESP 16; TEMP 36.8
[2025-02-08] MEDS: ONDANSETRON ODT 4 MG TAB PO (18:51)
--- NOTE | 2025-02-08 19:15 | PC.OBNST ---
NST Note NST Note Start: 02/08/25 18:15 Freq: ONCE Status: Discharge Protocol: Document 02/08/25 18:56 CUDDYH (Rec: 02/08/25 19:03 CUTALONY [id number]) NST Note 1 Para (# of births) 0 EDC 02/19/25 Gestational Age In Weeks & Days 38 Weeks & 3 Days Patient Presented with Complaint(s) of Nausea and vomiting Reactive Yes Appropriate for Gestational Age Yes RN Bennett Oliveira RN Date 02/08/25 Reactive Yes Appropriate for Gestational Age Yes DARRELL Quinones RNC Date 02/08/25 OB NST charge Yes Complete NST Note via Write Note Yes The provider's electronic signature indicates the NST is reactive/appropriate for gestational age. *Note to provider: If an addendum is required, open the patient's chart and click on the note under the Nurse/Allied Health tab.
== END 2025-02-08 18:56 | disposition home or self-care (01) ==
LOC: ED 17:58 → OB OUT 17:59 → OB 18:00
PROVIDERS: Emergency Provider Emergency Medicine Emergency Medical Services; PCP Family Medicine; Visit Provider Family Medicine
DX: O21.9 Vomiting of pregnancy, unspecified (principal); Z3A.38 38 weeks gestation of pregnancy
CPT/HCPCS: 59025; G0463; A9270

== ENCOUNTER 2025-02-13 08:58 | Outpatient (CLI) | payer MEDICAID, SELFPAY ==
[2025-02-13 09:04] VITALS: RESP 16; TEMP 36.8
[2025-02-13 09:05] VITALS: PULSE 245; PULSE 90; O2SAT 82; O2SAT 97
[2025-02-13 09:07] VITALS: BP 117/58; PULSE 96
[2025-02-13 10:09] LABS: Appearance Urine Clear (Clear); Bilirubin Urine Negative (Negative); Blood Urine Negative (Negative); Color Urine Yellow (Yellow); Glucose Urine Negative (Negative); Ketones Urine Negative (Negative); Leukocyte Esterase Urine 1+ (Negative); Nitrite Urine Negative (Negative); Protein Urine Negative (Negative); Specific Gravity Urine 1.015 (1.000-1.030); Urobilinogen Urine 0.2 (0.2-1.0)
[2025-02-13 10:19] LABS: Amphetamine Screen Urine Negative (Negative); Barbiturate Screen Urine Negative (Negative); Benzodiazepines Screen Urine Negative (Negative); Cannabinoid Screen Urine Negative (Negative); Cocaine Screen Urine Negative (Negative); Methadone Screen Urine Negative (Negative); Methamphetamines Screen Urine Negative (Negative); Opiate Screen Urine Negative (Negative); Oxycodone Screen Urine Negative (Negative); Phencyclidine Screen Urine Negative (Negative); Tricyclic Antidepressant Urine Negative (Negative)
[2025-02-13 10:22] LABS: Amnisure Rom* Negative
--- NOTE | 2025-02-13 10:43 | CRLHL7_ITS ---
For Patients: As a result of the Century Cures Act, medical imaging exams and procedure reports are released immediately into your electronic medical record. You may view this report before your referring provider. If you have questions, please contact your health care provider. INDICATION: Flank pain. Thirty-nine weeks . TECHNIQUE: Ultrasound renal bilateral. Carter-scale and color Doppler sonographic images were acquired of the kidneys and urinary bladder. COMPARISON: None. FINDINGS: Right kidney measures 10.9 cm in pole to pole length. Left kidney measures 10.5 cm in pole to pole length. Ehmi-fj-epykyyfw bilateral hydroureteronephrosis, right greater than left. This slightly improves on the postvoid images. No solid mass lesion evident. No definite ultrasound evidence of urolithiasis. Bladder: Estimated prevoid bladder volume is 51 mL. Left ureteral jet was visualized. Nonvisualization of the right ureteral jet. Estimated postvoid bladder volume is 13 mL. Bladder as imaged otherwise unremarkable. No free fluid evident. IMPRESSION: Taut-ev-xqrnhlgn bilateral hydroureteronephrosis, right greater than left. Dictated by Piotr Chun MD @ 02/13/2025 12:52:34 PM Dictated by: Piotr Chun MD @ 02/13/2025 12:52:50 (Electronically Signed)
[2025-02-13 10:45] LABS: Bacteria Urine Many; RBC Urine 0-2 (0-2); Squamous Epithelial Cell Urine Moderate (None-Few)
[2025-02-13] MEDS: ACETAMINOPHEN 500 MG TABLET 1000 MG PO (10:48)
--- NOTE | 2025-02-13 13:08 | PM.OBLDTN ---
OB - Triage/Final Diagnosis Visit Information Time Seen by Provider: 13:08 Date Seen: 02/13/25 Date of evaluation: 02/13/25 Narrative: The patient is a 24 year old 1 para 0 at 39 weeks gestation, who presents with right flank pain x 3 days. PT reports pain started at rest on Monday. Constant since but waxes and wanes. Increases with activity. Decreases with rest. No dysuria or hematuria. Some increased urinary frequency. Noticed spotting with wiping few days ago, not since. Thought maybe leaking fluid--small amount off and on, not needing wear pad. No contractions but reports occ marbin Talbot. No fevers. +FM. pts S.O. reports she has been very sedentary this . has been complicated by obesity (gained 50+ pounds), marginal previa which resolved Pt was monitored in L&D. On exam, mild ttp along area just inferior to right CVA. FHM reactive. UA negative, no abnormal wbc or rbcs. Amniosure negative. Renal US per tech report mild hydronephrosis R>L, decreased after voiding. Suspect pain musculoskeletal with pain increased with movement and negative eval as above. Pain improved in triage with tylenol. Discussed tylenol dosing, take prn. Heating pad, biofreeze or similar, Gentle stretching. Reviewed warning and labor s/s and reasons to return. she has followup on Monday with Dr Negrete and will keep that apt. followup sooner if needed. All ?'s answered. Evaluation Laboratory results: Laboratory Tests 02/13/25 02/13/25 Range/Units Unknown 10:30 Urine Color Yellow (Yellow) Urine Appearance Clear (Clear) Urine pH 7.0 (5.0-8.5) Ur Specific [place] 1.015 (1.000-1.030) Urine Protein Negative (Negative) Urine Glucose (UA) Negative (Negative) Urine Ketones Negative (Negative) Urine Blood Negative (Negative) Urine Nitrite Negative (Negative) Urine Bilirubin Negative (Negative) Urine Urobilinogen 0.2 (0.2-1.0) Ur Leukocyte Esterase 1+ A (Negative) Urine RBC 0-2 (0-2) Urine WBC 2-5 (0-5) Ur Squamous Epith Cells Moderate A (None-Few) Urine Bacteria Many A (None) Membrane Rupture Negative Urine Opiates Screen Negative (Negative) Ur Oxycodone Screen Negative (Negative) Urine Methadone Screen Negative (Negative) Ur Barbiturates Screen Negative (Negative) U Tricyclic Antidepress Negative (Negative) Ur Phencyclidine Scrn Negative (Negative) Ur Amphetamines Screen Negative (Negative) U Methamphetamines Scrn Negative (Negative) U Benzodiazepines Scrn Negative (Negative) Urine Cocaine Screen Negative (Negative) U Marijuana (THC) Screen Negative (Negative) Ur Drug Screen Comment See Note Vital signs: Vital Signs - 24 hr 02/13/25 09:04 02/13/25 09:05 02/13/25 09:05 Temperature 98.2 F Pulse Rate Respiratory Rate 16 Blood Pressure Pulse Oximetry 82 L 97 02/13/25 09:07 Temperature Pulse Rate 96 Respiratory Rate Blood Pressure 117/58 L Pulse Oximetry Fetus (Single) Heart Rate Baseline: 120 An/Sqq 89(V)15 Sonar System Journeyman Variability: Moderate (6-25) Monitor Accelerations: Present Monitor Decelerations: None Total Time Spent Total Time Spent: 62minutes
--- NOTE | 2025-02-13 13:24 | PC.OBNST ---
NST Note NST Note Start: 02/13/25 09:00 Freq: ONCE Status: Active Protocol: Document 02/13/25 13:20 SAMUEL (Rec: 02/13/25 13:24 SAMUEL [id number]) NST Note 1 Para (# of births) 0 EDC 02/19/25 Gestational Age In Weeks & Days 39 Weeks & 1 Days Patient Presented with Complaint(s) of Pain Other Complaints Pt. presented with consistent Right flank pain since Monday . Dr. Worrell came to evaluate pt. at the bedside. Reactive Yes Appropriate for Gestational Age Yes DARRELL Garcia Date 02/13/25 Reactive Yes Appropriate for Gestational Age Yes DARRELL Whitley RN Date 02/13/25 OB NST charge Yes Complete NST Note via Write Note Yes The provider's electronic signature indicates the NST is reactive/appropriate for gestational age. *Note to provider: If an addendum is required, open the patient's chart and click on the note under the Nurse/Allied Health tab.
== END 2025-02-13 13:15 | disposition home or self-care (01) ==
LOC: OB CLI 08:58 → OB 08:59
PROVIDERS: PCP Family Medicine; Visit Provider Family Medicine
DX: O47.1 False labor at or after 37 completed weeks of gestation (principal); Z3A.39 39 weeks gestation of pregnancy
CPT/HCPCS: 59025; 76770; 80306; 81001; 81003; 84112; 87086; G0463; A9270

== ENCOUNTER 2025-02-19 17:05 | Inpatient (IN) | payer MEDICAID, SELFPAY ==
[2025-02-19 18:03] VITALS: BP 123/79; PULSE 86; TEMP 36.6
--- NOTE | 2025-02-19 18:03 | PM.OBHPLI ---
OB - H&P: HPI Labor/Induction History of Present Illness Date Seen: 02/19/25 Chief Complaint: The patient is a 24 year old 1 para 0 at 40.0 weeks gestation by LMP, who presents for elective IOL Chief complaint: Maternity : 1 Para: 0 Date of last menstrual period: 05/15/24 Estimated date of delivery: 02/19/25 Gestational age based on last menstrual period: 40 Narrative: Lisa Willis is a 24 year old at 40 weeks' gestation who presents today for elective IOL. 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 Has been evaluated in the center for this previously. No changes in discomfort. Has been feeling normal movement. No bleeding, leaking, or contractions. No headaches, dizziness, chest pain, shortness of breath. History of Present Dating criteria: based on LMP care: good care Labs Blood type: O (+) positive Rubella: immune RPR/VDLR: nonreactive GBS status: positive HBsAG: negative Meds Home Medications and Allergies Home Medications ?Medication ?Instructions ?Recorded ?Confirmed ?Type albuterol sulfate 90 mcg/actuation 1 - 2 puff inhalation Q4H PRN 05/20/24 02/13/25 History aerosol inhaler (Ventolin HFA) wheezing escitalopram oxalate 20 mg tablet 20 mg PO QAM 05/20/24 02/13/25 History ibuprofen 600 mg tablet 600 mg PO Q6H PRN #60 tabs 05/22/24 02/13/25 Rx ondansetron 4 mg disintegrating 4 mg PO Q8H PRN nausea and 05/22/24 02/13/25 Rx tablet vomiting #14 tabs bupropion HCl 150 mg 24 hr tablet, 150 mg PO QAM 08/04/24 02/13/25 History extended release clotrimazole 2 % vaginal cream 1 appful vaginal QHS 7 days #21 08/04/24 02/13/25 Rx grams hydroxyzine HCl 25 mg tablet 25 - 50 mg PO Q6H PRN anxiety 08/04/24 02/13/25 History vitamin with calcium 1 tab PO DAILY 08/04/24 02/13/25 History no.72-iron 27 mg-folic acid 1 mg tablet (M-Yan Plus) aspirin 81 mg tablet,delayed 81 mg PO DAILY 02/13/25 02/13/25 History release Allergies Allergy/AdvReac Type Severity Reaction Status Date / Time No Known Drug Allergies Allergy Verified 08/26/24 08:32 OB - H&P: Exam Physical Exam: Narrative: Gen: alert, pleasant Resp: CTA b/l, breathing comfortably on room air CV: RRR, no murmurs Abd: gravid, no RUQ pain SVE: 1.5/50%/-3, anterior MSK: L flank tenderness to palpation and with positional changes FHT: Baseline 130, moderate variability Accels +, Decels - [place]: uterine irritability OB - Problem Based A/P Additional Plan (1) Intrauterine : Status: Acute (2) Positive GBS test: Status: Acute Plan at 40w who presents for elective IOL. GBS positive. 1. IOL Cook catheter placed at 17:50 with 60 cc per balloon. Patient tolerated well. Plan to start Pitocin at 2100 at 1 mu/min, increasing by 1 mu every 30 minutes until alejandra regularly 2. GBS positive Plan to initiate ampicillin on 02/20 at 00:00. Anticipate at this time. Annelise Negrete DO
[2025-02-19] MEDS: CALCIUM CARBONATE 500 MG CHEW PO (18:40)
[2025-02-19 19:32] VITALS: BP 116/64; PULSE 84; TEMP 36.4; O2SAT 99
[2025-02-19] MEDS: MORPHINE 10 MG/ML inj IM (20:10)
[2025-02-19] MEDS: hydrOXYzine pamoate 25 MG CAPSULE 100 MG PO (20:11)
[2025-02-19] MEDS: LACTATED RINGERS 1000 ML 1,000 ML 125 ML IV (21:20)
[2025-02-19] MEDS: OXYTOCIN 30 unit/500 ML in NS 30 UNIT/500 ML BAG IVPB (21:21)
[2025-02-19 21:28] LABS: Basophils Percent Auto 0.2 % (0.0-3.0); Eosinophils Percent Auto 1.1 % (0.0-7.0); Hematocrit 34.4 % (33.0-51.0); Hemoglobin* 11.4 gm/dL (12.0-16.0); Immature Granulocytes Pct Auto 0.5 %; Lymphocytes Percent Auto 22.3 % (20-44); Mean Corpuscular HGB Conc 33 gm/dL (32-36); Mean Corpuscular Hemoglobin 30 pg (26-34); Mean Corpuscular Volume 90 fL (80-100); Monocytes Percent Auto 6.5 % (0.0-11.0); Neutrophils Percent Auto 69.4 % (42.0-72.0); Platelet Count* 310 K/uL (140-440); RDW Coefficient of Variation % 14.2 % (11.5-15.5); Red Blood Count 3.83 m/uL (4.00-5.20); White Blood Count* 15.74 K/uL (4.50-11.00)
[2025-02-19 21:30] VITALS: BP 109/60; PULSE 94; TEMP 36.6
[2025-02-19 21:49] LABS: Slide Review Reflex No
[2025-02-19 22:19] VITALS: BP 117/62; PULSE 92; TEMP 36.9
[2025-02-19 23:38] VITALS: BP 126/63; PULSE 83
[2025-02-20] VITALS (21 sets, daily range): BP systolic 100–144; BP diastolic 55–92; PULSE 82–102; RESP 16–18; TEMP 36.4–37; O2SAT 92–96; BMI 43.2
[2025-02-20] MEDS: AMPICILLIN 2 GM in 0.9 % SODIUM CHLORIDE Mini-bag 100 ML IVPB (02:32)
[2025-02-20] MEDS: LACTATED RINGERS 1000 ML 1,000 ML 525 ML IV (04:39)
[2025-02-20] MEDS: AMPICILLIN 1 GM in 0.9 % SODIUM CHLORIDE Mini-bag 100 ML IVPB ×3 (06:20→14:36)
--- NOTE | 2025-02-20 07:53 | PM.OBPNL ---
Subjective Time Seen by Provider: 07:53 Date Seen: 02/20/25 Narrative: 24yo G1 at 40 2/7wks admitted last night for elective induction. Cook placed last night. Had some vaginal bleeding around 0240 and nursing ?SROM so stopped pitocin and removed cook. Cervix 5cm at that time with bulging bag. Bleeding since much less per RN. Pitocin just restarted this morning. pt reports cramping, not tracking how often. Objective Vital Signs: Last Vital Signs Temp 98.2 F 02/20/25 07:21 Pulse 95 02/20/25 07:21 Resp 16 02/20/25 07:21 BP 100/58 L 02/20/25 07:21 Pulse Ox 96 02/20/25 05:55 Contractions Monitor mode: External Contraction Frequency: q4min Contraction pattern: Irregular Assessment Assessment: induction ongoing Heart Rate Baseline: 130 Senior Living Variability: Moderate (6-25) Monitor Accelerations: Present Monitor Decelerations: Variable Plan Plan: -Induction ongoing: Increase pitocin per protocol -GBS+, has received 2 doses already, continue -pt plans epidural at some point. Is comfortable now. -discussed inductions, variability in induction courses. All ?'s answered.
[2025-02-20] MEDS: LACTATED RINGERS 1000 ML 1,000 ML 125 ML IV (09:44)
--- NOTE | 2025-02-20 13:49 | PM.OBPNL ---
Subjective Time Seen by Provider: 13:40 Date Seen: 02/20/25 Narrative: pt reports ctxs are increasing. rates as 7/10. can talk through she says, not have to breath through. RN's report overall she has not wanted to be up and moving but did just get up to birthing ball. No further bleeding. Had one elevated bp at 144/59, recheck was 100/56 Objective Exam: Pt sitting on birthing ball. Speaks in full sentences through contractions Vital Signs: Last Vital Signs Temp 98.2 F 02/20/25 07:21 Pulse 83 02/20/25 13:43 Resp 16 02/20/25 07:21 BP 118/79 02/20/25 13:43 Pulse Ox 96 02/20/25 05:55 Pelvic Exam Dilation (cm): 5 Effacement (%): 80 Station: -2 Contractions Monitor mode: External Contraction Frequency: q2-3min Contraction pattern: Irregular Assessment Assessment: induction ongoing Heart Rate Baseline: 140 Senior Care Variability: Moderate (6-25) Monitor Accelerations: Present Monitor Decelerations: Variable Plan Plan: -continue increase pitocin per protocol -Head ballotable now but discussed possible AROM once head engaged -on abx for GB prophaxis -discussed plan with pt and S.O, all ?'s answered
[2025-02-20 16:32] LABS: Hematocrit 34.8 % (33.0-51.0); Hemoglobin* 11.6 gm/dL (12.0-16.0); Mean Corpuscular HGB Conc 33 gm/dL (32-36); Mean Corpuscular Hemoglobin 30 pg (26-34); Mean Corpuscular Volume 90 fL (80-100); Platelet Count* 323 K/uL (140-440); Red Blood Count 3.87 m/uL (4.00-5.20); White Blood Count* 18.39 K/uL (4.50-11.00)
[2025-02-20 16:34] LABS: Slide Review Reflex No
[2025-02-20 16:44] LABS: Alanine Aminotransferase* 18 U/L (4-35); Aspartate Amino Transferase* 27 U/L (12-35); Creatinine* 0.5 mg/dL (0.5-1.5); Est. Creatinine Clearance* 144.76; Estimated Glomerular Filt Rate 135 ml/min
--- NOTE | 2025-02-20 19:36 | P.OBPN_ITS ---
Subjective Time Seen by Provider: 19:00 Date Seen: 02/20/25 Narrative: Pitocin up to 21 and developed tachysystole. FHT remained reactive. Due to tachysystole pitocin cut in 10/10 and eventually discontinued. pt did have two elevated bp's during day 144/71 and 144/59, preeclamptic labs normal. The 144/69 I am told was when pt was rating contractions /10. Bp's since <120/80. Contractions now spacing and much more comfortable. Objective Vital Signs: Last Vital Signs Temp 97.9 F 02/20/25 14:48 Pulse 92 02/20/25 18:01 Resp 18 02/20/25 14:48 BP 111/63 02/20/25 18:01 Pulse Ox 96 02/20/25 05:55 Pelvic Exam Dilation (cm): 5 Effacement (%): 80 Station: -2 Contractions Monitor mode: External Contraction Frequency: q2-3 now with pitocin off Contraction pattern: Irregular Assessment Heart Rate Baseline: 140 Assisted Variability: Moderate (6-25) Monitor Accelerations: Present Monitor Decelerations: None Plan Plan: US done to confirm vertex and vertex position is confirmed. Discussed options with pt. At this point, head not engaged so cannot AROM. Pitocin stopped due to tachysytole. Could give pitocin break here for 4+ hours and restart pitocin OR pt could go home and return in morning for repeat induction. Discussed she did have the elevated BP's x 2, all remaining have been good and 2nd one was during most intense pain with induction. Follow up bp's look good. No headaches or vision changes. Labs normal. Reviewed could keep here and monitor and restart pitocin overnight or in morning OR she can choose to go home and sleep in her own bed and return for induction in morning. She would like to go home and return in morning. reasons to return overnight reviewed. Plan restart abx in morning. repeat labs in morning. restart pitocin induction. All ?'s answered
[2025-02-20] MEDS: MORPHINE 10 MG/ML inj IM (19:43)
[2025-02-20] MEDS: hydrOXYzine pamoate 25 MG CAPSULE 100 MG PO (19:43)
[2025-02-21 22:40] LABS: Rapid Plasma Reagin (RPR) Non Reactive (Non Reactive)
== END 2025-02-20 19:55 | disposition home or self-care (01) | DRG 833 ==
PROVIDERS: Family Medicine; Admitting Provider Family Medicine; PCP Family Medicine; Visit Provider Family Medicine
DX: O99.343 Other mental disorders complicating pregnancy, third trimester (principal); O99.820 Streptococcus B carrier state complicating pregnancy; F41.9 Anxiety disorder, unspecified; F32.A Depression, unspecified; R00.0 Tachycardia, unspecified; O99.891 Other specified diseases and conditions complicating pregnancy; Z3A.40 40 weeks gestation of pregnancy
CPT/HCPCS: 36415; 59200; 82565; 84450; 84460; 85025; 85027; 86592; 86850; 86900; 86901; A9270; C1726; J0290; J2270; J7120

== ENCOUNTER 2025-02-21 07:40 | Inpatient (IN) | payer MEDICAID, SELFPAY ==
[2025-02-21] VITALS (90 sets, daily range): BP systolic 89–136; BP diastolic 43–86; PULSE 71–150; RESP 16–18; TEMP 36.4–37.2; O2SAT 89–100; BMI 31.7
[2025-02-21 09:11] LABS: Basophils Percent Auto 0.2 % (0.0-3.0); Eosinophils Percent Auto 0.7 % (0.0-7.0); Hematocrit 33.9 % (33.0-51.0); Hemoglobin* 11.4 gm/dL (12.0-16.0); Immature Granulocytes Pct Auto 0.2 %; Lymphocytes Percent Auto 13.7 % (20-44); Mean Corpuscular HGB Conc 34 gm/dL (32-36); Mean Corpuscular Hemoglobin 30 pg (26-34); Mean Corpuscular Volume 89 fL (80-100); Monocytes Percent Auto 7.1 % (0.0-11.0); Neutrophils Percent Auto 78.1 % (42.0-72.0); Platelet Count* 319 K/uL (140-440); RDW Coefficient of Variation % 14.3 % (11.5-15.5); Red Blood Count 3.79 m/uL (4.00-5.20); White Blood Count* 16.44 K/uL (4.50-11.00)
[2025-02-21] MEDS: LACTATED RINGERS 1000 ML 1,000 ML 125 ML IV ×3 (09:20→16:14)
[2025-02-21 09:23] LABS: Blood Urea Nitrogen* 7 mg/dL (5-24); Creatinine* 0.5 mg/dL (0.5-1.5); Est. Creatinine Clearance* 151.11; Estimated Glomerular Filt Rate 135 ml/min
[2025-02-21 09:24] LABS: Alanine Aminotransferase* 20 U/L (4-35); Aspartate Amino Transferase* 26 U/L (12-35)
[2025-02-21] MEDS: OXYTOCIN 30 unit/500 ML in NS 30 UNIT/500 ML BAG IVPB (09:28)
[2025-02-21 09:32] LABS: Slide Review Reflex No
[2025-02-21] MEDS: AMPICILLIN 2 GM in 0.9 % SODIUM CHLORIDE Mini-bag 100 ML IVPB (09:59)
--- NOTE | 2025-02-21 10:24 | PC.SOCIAL ---
Social work consult: dairy machine operator farmworker received a consult for the pt stating Substance Abuse Screening. dairy machine operator farmworker checked [facility] and stated that the consult was triggered due to the pt reporting THC use in , but she quit in June. The nursing staff shared that they will most likely not be testing the babies' urine or cord blood. The pt did have an all negative tox screen on 02/13/2025 in the clinic. dairy machine operator farmworker did check-in with the pt this morning and offered resources. Pt declined additional resources at this time and stated that she was already connected with [facility]. Pt does have the contact number for the social work department if she should have additional questions or if she changes her mind about wanting more resources. Social work to follow-up as needed.
[2025-02-21 13:45] LABS: Total Protein Urine 20 mg/dL
[2025-02-21 13:46] LABS: Creatinine Urine 78.4 mg/dL; Protein Creatinine Ratio Urine 0.26 (0-0.19)
[2025-02-21] MEDS: LIDOCAINE 2% (PF) 5 ML VIAL EPIDURAL (13:48)
[2025-02-21] MEDS: AMPICILLIN 1 GM in 0.9 % SODIUM CHLORIDE Mini-bag 100 ML IVPB ×3 (14:08→22:11)
[2025-02-21] MEDS: ROPIVACAINE 0.2% 100 ml 100 ML 12 MG EPIDURAL ×2 (14:12→20:52)
--- NOTE | 2025-02-21 14:25 | P.ANBPRC_ITS ---
[facility] [place] History (Updated 02/21/25 @ 00:01 by Epifanio Bermeo) Intrauterine ?Z34.90 - Encounter for supervision of normal , unspecified, unspecified trimester (ICD-10) Social History What is your current living situation?: I presently have a place to live Problems where you live: no known problems In the past 12 months, utilities in danger of being shut off: no In past 12 months, lack of transportation kept you from medical appts, meetings, work, or getting things needed for daily living: no In the past 12 mos, have been you worried that your food would run out before you had money to buy more?: never true In the past 12 mos, the food you bought just didn't last and you didn't have money to buy more?: never true Smoking Status: Former smoker How often do you have a drink containing alcohol: never AUDIT-C Alcohol total score: 0 Non-prescribed substance use: former substance user and marijuana (any form) How often does anyone, including family, friends and others, physically hurt you : never How often does anyone, including family, friends and others, insult or talk down to you: never How often does anyone, including family, friends and others, threaten you with harm: never How often does anyone, including family, friends and others, scream or curse at you: never Meds Home Medications and Allergies Home Medications ?Medication ?Instructions ?Recorded ?Confirmed ?Type albuterol sulfate 90 mcg/actuation 1 - 2 puff inhalation Q4H PRN 05/20/24 02/21/25 History aerosol inhaler (Ventolin HFA) wheezing escitalopram oxalate 20 mg tablet 20 mg PO QAM 05/20/24 02/21/25 History ondansetron 4 mg disintegrating 4 mg PO Q8H PRN nausea and 05/22/24 02/21/25 Rx tablet vomiting #14 tabs bupropion HCl 150 mg 24 hr tablet, 150 mg PO QAM 08/04/24 02/21/25 History extended release hydroxyzine HCl 25 mg tablet 25 - 50 mg PO Q6H PRN anxiety 08/04/24 02/21/25 History vitamin with calcium 1 tab PO DAILY 08/04/24 02/21/25 History no.72-iron 27 mg-folic acid 1 mg tablet (M-Yan Plus) aspirin 81 mg tablet,delayed 81 mg PO DAILY 02/13/25 02/21/25 History release Allergies Allergy/AdvReac Type Severity Reaction Status Date / Time No Known Drug Allergies Allergy Verified 02/21/25 08:22 Results Labs Labs: Laboratory Results - last 24 hr 02/21/25 02/21/25 09:00 13:10 WBC 16.44 H RBC 3.79 L Hgb 11.4 L Hct 33.9 MCV 89 MCH 30 MCHC 34 RDW Coeff of Mony 14.3 Plt Count 319 Neut % (Auto) 78.1 H Lymph % (Auto) 13.7 L [place] % (Auto) 7.1 Eos % (Auto) 0.7 Baso % (Auto) 0.2 Neut # (Auto) 12.80 H Lymph # (Auto) 2.30 [place] # (Auto) 1.20 H Eos # (Auto) 0.10 Baso # (Auto) 0.00 Abs Immat Gran (auto) 0.00 Imm/Tot Granulo (auto) 0.2 BUN 7 Creatinine 0.5 Estimated Creat Clear 151.11 Estimated GFR 135 AST 26 ALT 20 Urine Creatinine 78.4 Protein/Creatinin Ratio 0.26 H Urine Total Protein 20 Blood Type O Positive Antibody Screen NEGATIVE Vital Signs Vital Signs: Last Vital Signs Temp 97.7 F 02/21/25 12:59 Pulse 80 02/21/25 14:24 Resp 16 02/21/25 12:59 BP 119/75 02/21/25 14:24 Pulse Ox 98 02/21/25 14:23 Weight: 111.538 kg Height: 162.56 cm Anesthesia Procedures Epidural Insertion Patient Location: OB Start Time: 13:45 Stop Time: 14:45 Start Date: 02/21/25 Stop Date: 02/21/25 Reason for Block: procedure for pain Patient Position: sitting Performed By: Fanny Lopez Preanesthetic Checklist: IV checked, site marked, risks and benefits discussed, monitors and equipment checked, pre-op evaluation, timeout performed and anes thesia consent Prep: chlorhexidine gluconate Monitoring: blood pressure monitoring, continuous pulse oximetry and heart rate Approach: midline Vertebral Space: lumbar (1-5) Epidural Technique: ELIZABETH saline Needle Type: Tuohy needle Injection Technique: continuous catheter Needle gauge: 17 Needle Length (cm): 10 cm Needle Insertion Depth (cm): 8 Catheter Gauge: 19 Catheter Type: multi-orifice Catheter at skin depth (cm): 17 Test Dose Result: negative and lidocaine 1.5% with epinephrine 1 to 200,000
--- NOTE | 2025-02-21 15:23 | P.OBHP_ITS ---
OB - H&P: HPI Labor/Induction History of Present Illness Time Seen by Provider: 12:30 Date Seen: 02/21/25 Chief Complaint: The patient is a 24 year old 1 para 1 at 40+2 weeks gestation by LMP, who presents for IOL for gestational hypertension. Chief complaint: Maternity Indications for induction: induced hypertension Narrative: Lisa Willis is a 24 year old female at 40+2 weeks by LMP c/w 7 wk US who presents for IOL for gestational hypertension. She was admitted to L&D on 02/19/25 for elective IOL at 40+0 weeks. She had cook catheter placed and transi tioned to IV pitocin. Despite titration of pitocin to max of 21, she did not make cervical change or transition to active labor. She did have 2 blood pressures that were in the non-severe pre-eclampsia range, meeting criteria for gestational hypertension. Pre-eclampsia labs were normal, she was asymptomatic and the remainder of BPs were normal. Pitocin could not be titrated further d/t uterine tachysystole, and station was not appropriate for AROM. After discussion of options, patient elected to discharge home last evening for rest and pitocin break. She returned this AM at 0730. Reports 10 hours of sleep at home. Cervix 5/60/-1. Contractions about every 7 minutes, crampy. Pit was restarted along with IV abx for GBS. Upon my arrival at 1230, she was feeling mild contractions. Pit at 10. 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 Fundal height > dates - level II US with MPP on 12/26 with growth at 41st percentile Depression and anxiety on escitalopram GBS positive History of Present Dating criteria: based on LMP care: good care Labs Blood type: O (+) positive Rubella: immune RPR/VDLR: nonreactive GBS status: positive HBsAG: negative Review of Systems Status of ROS: Reports: 10 or more systems reviewed and unremarkable except as noted in History and below Meds Home Medications and Allergies Home Medications ?Medication ?Instructions ?Recorded ?Confirmed ?Type albuterol sulfate 90 mcg/actuation 1 - 2 puff inhalation Q4H PRN 05/20/24 02/21/25 History aerosol inhaler (Ventolin HFA) wheezing escitalopram oxalate 20 mg tablet 20 mg PO QAM 05/20/24 02/21/25 History ondansetron 4 mg disintegrating 4 mg PO Q8H PRN nausea and 05/22/24 02/21/25 Rx tablet vomiting #14 tabs bupropion HCl 150 mg 24 hr tablet, 150 mg PO QAM 08/04/24 02/21/25 History extended release hydroxyzine HCl 25 mg tablet 25 - 50 mg PO Q6H PRN anxiety 08/04/24 02/21/25 History vitamin with calcium 1 tab PO DAILY 08/04/24 02/21/25 History no.72-iron 27 mg-folic acid 1 mg tablet (M- Plus) aspirin 81 mg tablet,delayed 81 mg PO DAILY 02/13/25 02/21/25 History release Allergies Allergy/AdvReac Type Severity Reaction Status Date / Time No Known Drug Allergies Allergy Verified 02/21/25 08:22 OB - H&P: Exam Physical Exam: Vital signs: Temp Pulse Resp BP Pulse Ox 98 F 79 16 126/84 97 02/21/25 15:18 02/21/25 15:18 02/21/25 15:18 02/21/25 15:18 02/21/25 15:18 Narrative: General appearance: Well-appearing adult female. Alert, oriented and appropr iate. Standing at the side of the bed. HEENT: EOMI, no conjunctival injection or discharge. MMM. Neck: Supple. CV: RRR, no rubs, murmurs or extra heart sounds. Pulm: CTAB, no wheezes, rales or rhonchi. Abdomen: Gravid. MSK: Moving all extremities. Ext: Warm and well-perfused. Trace edema. Skin: No rashes appreciated over exposed skin. Neuro: Grossly normal strength and sensation. No focal deficits. Psych: Normal affect. Detailed Labor and Delivery Exam: Dilation (cm): 5 Effacement (%): 70 Cervix position: anterior Consistency: soft Fetus (Single): Station: -1 Amniotic Membrane Status: SROM Amniotic Membrane Fluid Description: Clear Heart Rate Baseline: 125 Monitor Accelerations: Present Monitor Decelerations: None Shutdown Coordinator Variability: Moderate (6-25) OB - Results Labs Labs: Short CBC 02/21/25 Range/Units 09:00 WBC 16.44 H (4.50-11.00) K/uL Hgb 11.4 L (12.0-16.0) gm/dL Hct 33.9 (33.0-51.0) % Plt Count 319 (140-440) K/uL BMP 02/21/25 09:00 BUN 7 Creatinine 0.5 Liver Function 02/21/25 Range/Units 09:00 AST 26 (12-35) U/L ALT 20 (4-35) U/L OB - Problem Based A/P Additional Plan (1) Term : Problem details: IOL for gestational hypertension. Originally admitted 02/19 for elective IOL with cook and pit, d/c home evening of 02/20 for rest and pit break. Returned 02/21 AM for pit. Status: Acute Plan: - AROM for clear fluid with some bloody show - Continue to titrate IV pitocin per protocol - status reassuring - Anticipate vaginal delivery (2) Positive GBS test: Problem details: IV abx initiated upon arrival 02/21 Status: Acute Plan: - Continue abx per protocol until delivery (3) Gestational hypertension: Problem details: Non-severe range pressures x 2, 4 hours apart during initial admission. BP has been WNL this admission. Pre-E labs WNL, pr/cr 0.26 Status: Acute Plan: - Continue to monitor, low threshold to repeat labs
--- NOTE | 2025-02-21 20:15 | PM.OBPNL ---
Subjective Time Seen by Provider: 20:16 Date Seen: 02/21/25 Narrative: Patient comfortable with epidural. Feeling a bit of intermittent rectal pressure. RN cervical check around 1900 was rim. Objective Vital Signs: Last Vital Signs Temp 98.5 F 02/21/25 19:37 Pulse 93 02/21/25 20:12 Resp 18 02/21/25 18:01 BP 117/82 02/21/25 20:12 Pulse Ox 99 02/21/25 18:05 Pelvic Exam Dilation (cm): 7 Effacement (%): 100 Station: 0 Contractions Contraction Frequency: Q1-2 Pitocin Rate (mU/min): 3 Assessment Assessment: active labor Station: -1 Amniotic Membrane Status: AROM Status: Category l Heart Rate Baseline: 145 Senior Living Variability: Moderate (6-25) Monitor Accelerations: Present Monitor Decelerations: None Tracing Comments: Category I Labor Progress: Not complete, but has made cervical change. Maternal Status: Coping well with epidural Plan Plan: - RN to work with patient on positioning to promote labor progress - Pitocin decreased to 2 d/t frequent contractions - Recheck in 2 hours, if no significant progress would place IU - FHT category I - Anticipate vaginal delivery
[2025-02-21] MEDS: ESCITALOPRAM 10 MG TABLET 20 MG PO (21:49)
--- NOTE | 2025-02-21 22:15 | PM.OBPNL ---
Subjective Time Seen by Provider: 22:15 Date Seen: 02/21/25 Narrative: Called to the bedside. Patient experiencing intense rectal pressure. RN check anterior lip. Objective Vital Signs: Last Vital Signs Temp 98.7 F 02/21/25 20:49 Pulse 88 02/21/25 22:13 Resp 18 02/21/25 18:01 BP 133/67 02/21/25 22:13 Pulse Ox 99 02/21/25 18:05 Pelvic Exam Dilation (cm): 9 Effacement (%): 100 Station: 0 Contractions Pitocin Rate (mU/min): 2 Assessment Station: 0 Amniotic Membrane Status: AROM Status: Category l Heart Rate Baseline: 140 Intermediate Variability: Moderate (6-25) Monitor Accelerations: Present Monitor Decelerations: None Plan Plan: - Making cervical change, not yet complete - Continue position changes with RN - Frequent ctx > pit down to 1 - FHT category I - Anticipate vaginal delivery
[2025-02-21] MEDS: PHENYLEPHRINE 100 MCG/ML SYRINGE IVP (22:55)
[2025-02-22] VITALS (22 sets, daily range): BP systolic 97–186; BP diastolic 55–81; PULSE 80–134; RESP 16–20; TEMP 36.6–37.8; O2SAT 96–99
[2025-02-22] MEDS: miSOPROStoL 800 MCG/4 TABLET PR (00:32)
[2025-02-22] MEDS: LIDOCAINE 1 % PF 30 ML INJECTION (00:41)
[2025-02-22] MEDS: TRANEXAMIC ACID 100 MG/ML INJ 1000 MG IV (00:41)
--- NOTE | 2025-02-22 01:28 | W.PM.VAGDE_ITS ---
OB Procedure Vag Delivery Mother Details Mother Details: The patient is a 24 year-old, 1, Para 0, originally admitted on 02/19/25 for elective IOL at 40+0 weeks. She had cook catheter overnight followed by IV pitocin. Pit got up to 21 without transition to active labor, and no cervical change. Patient was offered discharge home overnight 02/20 for rest and pitocin break. She did have non-severe range blood pressures x2, but normal pre- eclampsia labs, and asymptomatic. She discharged home late PM on 02/20. She was re-admitted on 02/21/25 at 40+2 Days gestation to resume IOL. Cervix was 5/60/-1 on admission. IV pitocin started, AROM at 12:41 for clear fluid with bloody show. She transitioned to active labor and requested an epidural. This was placed with good effect. She progressed to complete at 2320. Pushing started 2325. She pushed with good effort. FHT were category II in the second stage with several prolonged decelerations that resolved with repositioning including hands and knees. Viable female infant delivered over an intact perineum at 0028. Did not appear vigorous and cord was immediately clamped and cut. was brought to the warmer. Placenta delivered spontaneously at 0033. 3-vessel and appeared intact. There was immediate post- hemorrhage. Patient received pitocin, cytotec, and TXA. Fundus subsequently palpated firm and bleeding appropriate. First degree left vaginal and right labial lacerations were repaired in the usual fashion with 3-0 vicryl. QBL 1731 cc. Mom and baby are resting comfortably. Admission Date: 02/22/25 Additional Details Amniotic Membrane Status: AROM Amniotic Membrane Rupture Date: 02/22/25 Amniotic Membrane Rupture Time: 12:41 Amniotic Membrane Fluid Description: Clear Analgesia/Anesthesia Type: Epidural Waterbirth: No Pitcoin: Yes Intrapartal Events: Labor Augmentation and Labor Induction Induction Method: Intracervical balloon catheter Delivery augmentation: rupture of membranes and pitocin Labor Onset: 14:00 Complete: 23:20 Pushin:25 Heart: heart tones during second stage were category II Delivery Details Delivery Date: 02/22/25 Delivery Time: 00:28 Route of delivery: Infant Gender: Female Viability: Alive; Heart Rate Present Position at Delivery: OA Delivery Details: Delivered via spontaneous vaginal delivery. Infant was placed on maternal abdomen.? Cord was clamped immediately. Infant was brought to the warmer. weight pending. 1 Minute Interval Total Score: 5 5 Minute Interval Total Score: 6 10 Minute Interval Total Score: 8 Additional Details Shoulder Dystocia: No Placenta Delivery Time: 00:33 Placental Delivery Description: Spontaneous Delivery repair: Vicryl Procedure Done: Global Blood Loss: 1,731 Laceration: Vaginal - 1st Degree (And left labial first degree) Episiotomy Description: None Blood Loss Measurement Type: QBL Bakri Used: No Sponge/Need Count Correct: Yes Cord Vessel Description: 3 Vessels Event Summary Status: Mother and were stable after delivery. Disposition: floor
[2025-02-22] MEDS: IBUPROFEN 600 MG TABLET PO (03:38)
--- NOTE | 2025-02-22 10:37 | PM.ANPOST ---
Post Anesthesia Note Post Anesthesia Note Patient seen: Inpatient Respiratory Status: adequate Cardiovascular Status: adequate Mental Status: baseline Pain: adequate Temp: baseline Anesthetic awareness: N/A Complications: none Follow care: none
[2025-02-22] MEDS: DOCUSATE SODIUM 100 MG CAPSULE PO (13:08)
[2025-02-22] MEDS: ESCITALOPRAM 10 MG TABLET 20 MG PO (23:42)
[2025-02-23] VITALS: BP 102/70; PULSE 95; RESP 16; TEMP 36.8; O2SAT 97
[2025-02-23] MEDS: IBUPROFEN 600 MG TABLET PO (00:03)
[2025-02-23 04:51] VITALS: BP 119/80
[2025-02-23 06:41] LABS: Hemoglobin* 9.2 gm/dL (12.0-16.0)
--- NOTE | 2025-02-23 09:09 | P.DS_ITS ---
DS: Providers Provider Date Seen: 02/23/25 Date of admission: 02/21/25 07:40 Primary care physician: Annelise Negrete DO Admitting Clinician: Sasha Turner MD Consults: 02/21/25 08:54 Consult to Refrigeration Unit Repairer [CONS] Routine Comment: Reason for Consult:: Substance Abuse Screening Attending Physician on discharge: Annelise Negrete DO Date of Discharge: 02/23/25 DS: Diagnosis Discharge Diagnosis (1) Term delivered: Status: Acute (2) Gestational hypertension: Status: Acute Problem details: Non-severe range pressures x 2, 4 hours apart during initial admission. BP has been WNL this admission. Pre-E labs WNL, pr/cr 0.26 (3) anemia: Status: Acute Exam Narrative: Exam Narrative: Gen: alert, pleasant, NAD Resp: CTA b/l, breathing comfortably on room air CV: RRR, no murmurs Abd: fundus firm at umbilicus; no RUQ pain Extremities: no significant LE edema Neuro: moves all extremities, no focal deficits Const: Vital Signs, click to edit/add: Vital Signs - 24 hr 02/22/25 12:59 02/22/25 15:29 02/22/25 20:19 Temperature 98 F 98 F 98.3 F Pulse Rate [Pulse Oximeter] 80 91 83 Respiratory Rate 18 18 20 Blood Pressure [Le ft Arm] 97/55 L Blood Pressure [Ri ght Arm] 112/75 113/77 108/59 L Pulse Oximetry 97 98 98 Oxygen Delivery Me thod Room Air Room Air Room Air 02/23/25 00:00 02/23/25 04:51 Temperature 98.2 F Pulse Rate [Pulse Oximeter] 95 Respiratory Rate 16 Blood Pressure [Le ft Arm] Blood Pressure [Ri ght Arm] 102/70 119/80 Pulse Oximetry 97 Oxygen Delivery Me thod Room Air OB - DS: Summary Hospital Course Hospital Course: The patient is a 24 year-old, 1, Para 1, originally admitted on 02/19/25 for elective IOL at 40+0 weeks. She had cook catheter overnight followed by IV pitocin. Pit got up to 21 without transition to active labor, and no cervical change. Patient was offered discharge home overnight 02/20 for rest and pitocin break. She did have non-severe range blood pressures x2, but normal pre- eclampsia labs, and asymptomatic. She discharged home late PM on 02/20. She was re-admitted on 02/21/25 at 40+2 Days gestation to resume IOL. Cervix was 5/60/-1 on admission. IV pitocin started, AROM at 12:41 for clear fluid with bloody show. She transitioned to active labor and requested an epidural. This was placed with good effect. She progressed to complete at 2320. Pushing started 2325. She pushed with good effort. FHT were category II in the second stage with several prolonged decelerations that resolved with repositioning including hands and knees. Viable female delivered over an intact perineum at 0028 on 02/22/25 at 40w3d. Did not appear vigorous and cord was immediately clamped and cut. Infant was brought to the warmer. Placenta delivered spontaneously at 0033. 3-vessel and appeared intact. There was immediate post- hemorrhage. Patient received pitocin, cytotec, and TXA. Fundus subsequently palpated firm and bleeding appropriate. First degree left vaginal and right labial lacerations were repaired in the usual fashion with 3-0 vicryl. QBL 1700 cc. Blood pressures have been largely normal . Anemia with Hgb 9.2 g/dl noted. Discussed starting PO iron. Bleeding has been appropriate , described as similar to menstrual bleeding. She is attempting some but has been primarily formula feeding. Peripartum Data delivery method: Vaginal Gender: Female Infant Discharge Plan: Home Time Spent with Patient Time attestation: Total time spent providing and/or coordinating discharge services: Time spent: Greater than 30 minutes Discharge Plan Discharge Disposition: Home, Self-Care Date of Admission: 02/21/25 07:40 Attending Provider on Discharge: Annelise Negrete Primary Care Provider: Annelise Negrete Condition: Stable Anticipated Discharge Date/Time: 02/23/25 12:00 Discharge Medications: New acetaminophen 500 mg Tablet 1,000 mg PO Q6H PRNQty: 0 0RF docusate sodium 100 mg Capsule 100 mg PO DAILY Qty: 0 0RF ibuprofen 600 mg Tablet 600 mg PO Q6H PRNQty: 0 0RF ferrous sulfate 325 mg (65 mg iron) tablet 325 mg PO DAILY Qty: 90 0RF Continued albuterol sulfate [Ventolin HFA] 90 mcg/actuation HFA aerosol inhaler 1 - 2 puff inhalation Q4H PRN (Reason: wheezing) Patient Comments: taken 2 months ago escitalopram oxalate 20 mg tablet 20 mg PO QAM hydroxyzine HCl 25 mg tablet 25 - 50 mg PO Q6H PRN (Reason: anxiety) M-Yan Plus 27 mg iron- 1 mg tablet 1 tab PO DAILY ondansetron 4 mg tablet,disintegrating 4 mg PO Q8H PRN (Reason: nausea and vomiting) Qty: 14 0RF Discontinued bupropion HCl 150 mg tablet extended release 24 hr 150 mg PO QAM aspirin 81 mg tablet,delayed release (DR/EC) 81 mg PO DAILY Rx Instructions: Take 1 Tablet (81 mg) by mouth once daily with a meal. Discharge Orders: Discharge Order (Routine); Ordered 02/23/25 Ordered By: Annelise Negrete Patient Education: OB Vaginal/Breast Feeding Follow Up Appointments: Annelise Negrete, DO [Primary Care Provider] - Forms: [facility] Info Instructions Discharge Comments: Schedule post- visit with Dr. Negrete in 6 weeks. Nothing in the vagina - no tampons, menstrual cups, or intercourse - for 6 weeks following delivery. Start daily oral iron supplement. May cause constipation. Continue acetaminophen as needed for pain - 1000 mg every 6 hours if needed Continue ibuprofen as needed for pain - 600 mg every 6 hours if needed
[2025-02-23 09:17] VITALS: BP 104/71; PULSE 84; RESP 16; TEMP 36.8; O2SAT 97
[2025-02-23 13:01] VITALS: BP 109/74; PULSE 75; RESP 18; TEMP 36.7; O2SAT 98
== END 2025-02-23 13:30 | disposition home or self-care (01) | DRG 806 ==
PROVIDERS: Admitting Provider Family Medicine; PCP Family Medicine; Visit Provider Family Medicine
DX: O13.4 Gestational [pregnancy-induced] hypertension without significant proteinuria, complicating childbirth (principal); D62 Acute posthemorrhagic anemia; Z37.0 Single live birth; Z3A.40 40 weeks gestation of pregnancy; O76 Abnormality in fetal heart rate and rhythm complicating labor and delivery; O72.1 Other immediate postpartum hemorrhage; O90.81 Anemia of the puerperium; O99.824 Streptococcus B carrier state complicating childbirth; O99.344 Other mental disorders complicating childbirth; F32.A Depression, unspecified; F41.9 Anxiety disorder, unspecified; O99.214 Obesity complicating childbirth; E66.9 Obesity, unspecified
CPT/HCPCS: 01967; 36415; 82565; 82570; 84156; 84450; 84460; 84520; 85018; 85025; 85027; 86592; 86850; 86900; 86901; 88307; A9270; J0290; J2003; J2795; J7120